=== PATIENT | male | born 1960 | race Two or more races ===

== ENCOUNTER 2025-05-01 17:45 | Inpatient (IN) | payer MEDICARE, MEDICAID ==
[~2025-05-01] VITALS: Ht 177.8 cm; Wt 126.0 kg
[2025-05-01] MEDS: SODIUM CHLORIDE 0.9% 1,000 ML IV ONE (18:00)
--- NOTE | 2025-05-01 18:05 | ED.PDOC ---
HPI Comments A 65 year-old male, with a PMHX of HTN and Kidney Disease, presents to the ED via EMS with a chief complaint of palpations as of 1700 today. Per EMS, patients AC went out last night so the house is hot in temperature. Patient reports palpitations as "heart racing" with no associated relieving factors. Per EMS, patient was diagnosed with a UTI X2 weeks ago and has had a catheter in place since. Patient reports onset of UTI symptoms, such as dysuria, frequency, cloudy urine, and chills. Patient is seen by an at home nurse once a week. Patient has no further complaints at this time and otherwise denies hematuria, abdominal pain, cough, fever, or N/V/D. Chief Complaint: Palpitations Time Seen by MD: 17:50 Reviewed Notes: Nurses Notes, Medications, Allergies Allergies: Coded Allergies: Iodine (Verified Allergy, Unknown, 05/01/25) Information Source: Patient, Emergency Med Personnel Mode of Arrival: EMS Severity: Moderate Timing: Hours Duration: Since onset Prehospital treatment: 12 Lead EKG (108), Accucheck (111) Associated Signs and Symptoms: Palpitations, Other (ysuria, frequency, cloudy urine, and chills.) Past Medical History PAST MEDICAL HISTORY: HTN Past Medical History (Other): Kidney Disease Surgical History (Other): R Femur Surgery Family History Family History: Reviewed,noncontributory to illness, No family hx of Cancer, No family hx of DM, No family hx of Heart saulo, No family hx of HTN, No family hx ofKidney saulo, No family hx of Liver saulo, No family hx of Lung saulo, No family hx of Stroke Social History Smoker: Quit Greater Than 1 Year Alcohol: Denies ETOH Use Drugs: Denies Drug Use Lives In: Home, Assisted Care Constitutional: reports: chills; denies: diaphoresis, fatigue, fever, malaise, sweats, weakness, others EENTM: denies: blurred vision, double vision, ear bleeding, ear discharge, ear drainage, ear pain, ear ringing, eye pain, eye redness, hearing loss, mouth pain, mouth swelling, nasal discharge, nose bleeding, nose congestion, nose pain, photophobia, tearing, throat pain, throat swelling, voice changes, others Respiratory: denies: cough, hemoptysis, orthopnea, SOB at rest, shortness of breath, SOB with excertion, stridor, wheezing, others Cardiovascular: reports: palpitations; denies: chest pain, dizzy spells, diaphoresis, Dyspnea on exertion, edema, irregular heart beat, left arm pain, lightheadedness, PND, syncope, others Gastrointestinal: denies: abdomen distended, abdominal pain, blood streaked bowels, constipated, diarrhea, dysphagia, difficulty swallowing, hematemesis, melena, nausea, poor appetite, poor fluid intake, rectal bleeding, rectal pain, vomiting, others Genitourinary: reports: dysuria, urgency; denies: burning, flank pain, frequency, hematuria, incontinence, penile discharge, penile sore, pain, testicle pain, testicle swelling, others Neurological: denies: dizziness, fainting, headache, left sided numbness, left sided weakness, numbness, paresthesia, pre-existing deficit, right sided numbn ess, right sided weakness, seizure, speech problems, tingling, tremors, weakness, others Musculoskeletal: denies: back pain, gout, joint pain, joint swelling, muscle pain, muscle stiffness, neck pain, others Integumetry: denies: bruises, change in color, change in hair/nails, dryness, laceration, lesions, lumps, rash, wounds, others Allergic/Immunocompromised: denies: Difficulty Healing, Frequent Infections, Hives, Itching, others Hematologic/Lymphatic: denies: anemia, blood clots, easy bleeding, easy bruising, swollen glands, others Endocrine: denies: excessive hunger, excessive sweating, excessive thirst, excessive urination, flushing, intolerance to cold, intolerance to heat, unexplained weight gain, unexplained weight loss, others Psychiatric: denies: anxiety, bipolar disorder, depression, hopeless, panic disorder, schizophrenia, sleepless, suicidal, others All Other Systems: Reviewed and Negative Physical Exam General Appearance: Moderate Distress HEENT: Normal ENT Inspection, Pharynx Normal, TMs Normal Neck: Full Range of Motion, Non-Tender, Normal, Normal Inspection Respiratory: Chest Non-Tender, Lungs Clear, No Accessory Muscle Use, No Respiratory Distress, Normal Breath Sounds Cardiovascular: No Edema, No JVD, No Murmur, No Gallop, Tachycardia Breast Exam: Deferred Gastrointestinal: No Organomegaly, Non Tender, No Pulsatile Mass, Normal Bowel Sounds, Soft Genitalia: Deferred Pelvic: Deferred Rectal: Deferred Extremities: No calf tenderness, Normal capillary refill, No pedal edema Musculoskeletal : Apperance: Normal Neurologic: can handler II-XII nml as Tested, Motor Weakness, Normal Affect, Normal Mood, No Sensory Deficits Cerebellar Function: Normal Reflexes: Normal Skin: Dry, Normal Color, Warm Lymphatic: No Adenopathy EKG EKG : Pulse Rate (adult): 108 [place]: Normal Cardiac Rhythm: ST Hypertrophy: None ST: Normal Was a procedure done? Was a procedure done?: No CP Differential Dx Differential Diagnosis: A-fib, Anxiety / Panic Attack Differential Diagnosis: HTN Essential, HTN Accelerated Differential Diagnosis: Chest Wall Pain X-Ray, Labs, Meds, VS Vital Signs Date Time Temp Pulse Resp B/P (MAP) Pulse Ox O2 Delivery O2 Flow Rate FiO2 05/01/25 18:50 91 05/01/25 18:18 98.4 106 11 140/92 (108) 98 98.4 05/01/25 18:08 Room Air* 0 21 05/01/25 18:05 108 05/01/25 17:50 98.4 116 20 134/89 97 98.4 05/01/25 17:46 108 Lab Test 05/01/25 18:00 Range/Units White Blood Count 12.9 H 4.4-10.8 10^3/uL Red Blood Count 4.29 L 4.5-5.90 10^6/uL Hemoglobin 12.5 L 13.5-17.5 g/dL Hematocrit 37.9 L 41.0-53.0 % Mean Corpuscular Volume 88.2 80.0-100.0 fL Mean Corpuscular Hemoglobin 29.2 28.0-32.0 pg Mean Corpuscular Hemoglobin Concent 33.1 32.0-36.0 g/dL Red Cell Distribution Width 13.9 11.8-14.3 % Platelet Count 233 140-450 10^3/uL Mean Platelet Volume 8.9 6.9-10.8 fL Neutrophils (%) (Auto) 74.2 37.0-80.0 % Lymphocytes (%) (Auto) 17.7 10.0-50.0 % Monocytes (%) (Auto) 4.8 0.0-12.0 % Eosinophils (%) (Auto) 2.6 0.0-7.0 % Basophils (%) (Auto) 0.7 0.0-2.0 % Neutrophils # (Auto) 9.6 H 1.6-8.6 10 ^3/uL Lymphocytes # (Auto) 2.3 0.4-5.4 10 ^3/uL Monocytes # (Auto) 0.6 0-1.3 10 ^3/uL Eosinophils # (Auto) 0.3 0-0.8 10 ^3/uL Basophils # (Auto) 0.1 0-0.2 10 ^3/uL Nucleated Red Blood Cells 0.0 % Urine Color Colorless Yellow Urine Clarity Ex.turbid Clear Urine pH 7.0 5.0-9.0 Urine Specific [place] 1.010 1.001-1.035 Urine Protein 1+ H Negative Urine Ketones Negative Negative Urine Blood 2+ H Negative /uL Urine Nitrite Negative Negative Urine Bilirubin Negative Negative Urine Urobilinogen 2 H Negative mg/dL Urine Leukocyte Esterase 3+ Negative /uL Urine RBC 33 0 - 3 /hpf Urine WBC Clumps Present None Seen /hpf Urine Microscopic WBC 74 H 0-3 /HPF Urine Squamous Epithelial Cells Few <5 /hpf Urine Amorphous Crystals Few None Seen /hpf Urine Bacteria Few H None Seen /hpf Urine Mucus Few None Seen Urine Glucose Normal Normal mg/dL Sodium Level 143 136-145 mmol/L Potassium Level 3.8 3.5-5.1 mmol/L Chloride Level 114 H 98-107 mmol/L Carbon Dioxide Level 19 L 20-31 mmol/L Anion Gap 10 5-15 Blood Urea Nitrogen 38 H 9-23 mg/dL Creatinine 2.11 H 0.700-1.30 mg/dL Glomerular Filtration Rate Calc 34 >90 mL/min BUN/Creatinine Ratio 18.0 10.0-20.0 Serum Glucose 112 H 74-106 mg/dL Lactic Acid Level 0.7 0.4-2.0 mmol/L Calcium Level 9.0 8.7-10.4 mg/dL Current Medications Medications (Trade) Dose Ordered Sig/Chucho Route Start Time Stop Time Status Last Admin Sodium Chloride 1,000 ml @ 150 mls/hr Q6H40M ONCE IV 05/01/25 18:00 05/02/25 00:39 05/01/25 18:00 CHEST XRAY IMPRESSION: No acute cardiopulmonary disease. IV Hep-Lock was established. The patient was given normal saline at 1 L bolus. The patient's urine test is positive for UTI The BUN is 38 and the creatinine is 2.11 The patient's white blood cell count is 12.9 We are concerned that this patient has a UTI bordering on sepsis The patient is being started on Levaquin The patient is being admitted at this time Images Reviewed?: Images reviewed and evaluated by me Time of 1ST Reevaluation: 18:38 Reevaluation 1ST: Unchanged Patient Education/Counseling: Diagnosis, Treatment, Prognosis Family Education/Counseling: No Family Present SEPSIS Sepsis Screen Physician Orders Chest Portable (05/01/25 17:51) Grit Blaster (05/01/25 17:51) Pulse Oximetry (05/01/25 17:51) Blood Pressure (05/01/25 17:51) Heplock Iv (05/01/25 17:51) Blood Culture (05/01/25 17:51) Sodium Chloride 0.9% (05/01/25 18:00) Vital Signs Date Time Temp Pulse Resp B/P (MAP) Pulse Ox O2 Delivery O2 Flow Rate FiO2 05/01/25 18:50 91 05/01/25 18:18 98.4 106 11 140/92 (108) 98 98.4 05/01/25 18:08 Room Air* 0 21 05/01/25 18:05 108 05/01/25 17:50 98.4 116 20 134/89 97 98.4 05/01/25 17:46 108 Laboratory Tests Test 05/01/25 18:00 Lactic Acid Level 0.7 mmol/L (0.4-2.0) White Blood Count 12.9 10^3/uL (4.4-10.8) H Medications Medications Dose Ordered Sig/Chucho Route Start Time Stop Time Status Last Admin Dose Admin Sodium Chloride 1,000 ml @ 150 mls/hr Q6H40M ONCE IV 05/01/25 18:00 05/02/25 00:39 05/01/25 18:00 Departure 1 Departure Time of Disposition: 19:14 Impression: Primary Impression: Palpitations Additional Impressions: Generalized weakness Acute pyelonephritis Disposition: ADMITTED INPATIENT Admit to: Tele Condition: Fair Critical Care Note Critical Care Time?: Yes (45 min-critical care time only) Stability Stability form required: Yes Unstable for transfer: Telemetry monitoring (Telemetry monitoring required), ED Physician Assesment (Clinical assesment) Heart Score Heart Score: Heart Score Response (Comments) Value History Moderate Suspicious 1 EKG Normal 0 Age >65 2 Risk Factors 1 or 2 risk factors 1 Troponin Normal limit 0 Total 4 I personally scribed for TONI MURILLO MD ([email or web address]) on 05/01/25 at 18:05. Electronically submitted by Aleida Beltran ([place]). I personally scribed for TONI MURILLO MD ([email or web address]) on 05/01/25 at 18:30. Electronically submitted by Aleida Beltran ([place]). I personally scribed for TONI MURILLO MD ([email or web address]) on 05/01/25 at 18:31. Electronically submitted by Aleida Beltran ([place]). TONI MURILLO MD May 01, 2025 18:05
[2025-05-01 18:15] LABS: Hematocrit 37.9 % (41.0-53.0); Hemoglobin 12.5 g/dL (13.5-17.5); Mean Corpuscular Hemoglobin 29.2 pg (28.0-32.0); Mean Corpuscular Volume 88.2 fL (80.0-100.0); Nucleated Red Blood Cells % 0.0 %
[2025-05-01 18:24] LABS: Potassium 3.8 mmol/L (3.5-5.1); Sodium 143 mmol/L (136-145)
[2025-05-01 18:25] LABS: Anion Gap 10 (5-15)
[2025-05-01 18:26] LABS: Calcium 9.0 mg/dL (8.7-10.4)
--- NOTE | 2025-05-01 18:27 | DVH ---
CHEST RADIOGRAPH Indication: weakness Technique: Single frontal view of the chest was obtained Comparison: None FINDINGS: Lines and Tubes: None Lungs: No focal consolidation. Mild elevation of the right hemidiaphragm. Pleura: No effusion. No pneumothorax. Cardiomediastinal contours: Unremarkable Bones: No acute osseous abnormality. IMPRESSION: No acute cardiopulmonary disease.
[2025-05-01 18:34] LABS: BUN/Creatinine Ratio 18.0 (10.0-20.0); Blood Urea Nitrogen 38 mg/dL (9-23); Carbon Dioxide 19 mmol/L (20-31); Chloride 114 mmol/L (98-107); Glucose 112 mg/dL (74-106)
--- NOTE | 2025-05-01 18:51 | ECG ---
[facility] Test Date: 2025-05-01 Test Time: 18:50:29 Pat Name: MAGDALENA SHEARER Department: ED Room: [facility]24[facility] Gender: M Document Design Specialist: TATIANA : 1960 Requested By: TONI MURILLO Order Number: [id number] Reading MD: Zeke Isabel Measurements Intervals [place] Rate: 91 P: 14 AR: 149 QRS: -14 QRSD: 102 T: -1 QT: 388 QTc: 478 Interpretive Statements Sinus rhythm Left ventricular hypertrophy Borderline T abnormalities, inferior leads Borderline prolonged QT interval Electronically Signed On 05-02-2025 17:54:06 PDT by Zeke Isabel Please click the below link to view image of tracing.
[2025-05-01 18:52] LABS: Urine Amorphous Crystal FEW /hpf (None Seen); Urine Protein, UAD 1+ (Negative); Urine WBC Clumps PRESENT /hpf (None Seen)
[2025-05-01 19:30] VITALS: PULSE 99; RESP 12; O2SAT 98
[2025-05-01] MEDS ORDERED: ACETAMINOPHEN 325 MG TAB PO PRN (20:00)
[2025-05-01] MEDS ORDERED: HYDROcodone-ACET 5/325MG TAB PO PRN (20:00)
[2025-05-01] MEDS: cefTRIAXone 1GM/50ML D5W 50 ML IV ONE (20:09)
[2025-05-01] MEDS: ONDANSETRON HCL 4 MG/2 ML VIAL IV PRN (20:52)
--- NOTE | 2025-05-02 03:05 | DVHHP2 ---
History of Present Illness Reason for Visit: Urinary complaints History of Present Illness 65-year-old male presents for evaluation of urinary complaints. Patient presents at noticing cloudy urine in his Pan catheter and having chills. Patient reports being treated for a UTI two weeks ago. Denies abdominal pain, nausea or vomiting. No other acute complaints. Past Medical History Hypertension, paraplegia, CKD Past Surgical History Right femur surgery Family History Noncontributory Smoke: Quit ALCOHOL: none Drugs: None Lives: with Family Review of Systems Review of Systems Review of systems are currently negative otherwise addressed in HPI. Allergies: Coded Allergies: Iodine (Verified Allergy, Unknown, 05/01/25) Medications Current Medications Medications Dose Ordered Sig/Chucho Route Start Time Stop Time Status Last Admin Dose Admin Ceftriaxone Sodium 50 ml @ 100 mls/hr DAILY@09 IV 05/02/25 09:00 Acetaminophen/ Hydrocodone Bitart 1 tab Q4HP PRN PO 05/01/25 20:00 Ondansetron HCl 4 mg Q4HP PRN IV 05/01/25 20:00 05/01/25 20:52 4 MG Acetaminophen 650 mg Q6HP PRN PO 05/01/25 20:00 Exam Vital Signs Vital Signs Date Time Temp Pulse Resp B/P (MAP) Pulse Ox O2 Delivery O2 Flow Rate FiO2 05/02/25 01:30 76 14 128/82 (97) 97 05/01/25 19:30 98.4 98.4 05/01/25 19:30 Room Air* 0 21 Exam Gen: 65-year-old male in no apparent distress. Skin: Warm, dry, normal color and texture, no rash. HEENT: Normocephalic atraumatic, mucous membranes moist and pink. Neck: Cervical and supraclavicular nodes normal without enlargement, trachea is midline, thyroid gland is normal without masses. Pulmonary: Clear to auscultation and percussion bilaterally. Cardiac: Regular rate and rhythm. No murmur Abdomen: Soft, nontender, nondistended, bowel sounds present all 4 quadrants, no guarding, no rigidity, no organomegaly. Extremities: No cyanosis, clubbing, no edema Neuro: Cranial nerves II through XII grossly intact, normal affect and speech, no focal motor deficits. Labs/Xrays ORDERING PHYSICIAN: TONI MURILLO MD PROCEDURE(s): CXRP - CHEST PORTABLE REASON: weakness ORDER NUMBER(s): [id number], ACCESSION NUMBER(s): [id number] CHEST RADIOGRAPH Indication: weakness Technique: Single frontal view of the chest was obtained Comparison: None FINDINGS: Lines and Tubes: None Lungs: No focal consolidation. Mild elevation of the right hemidiaphragm. Pleura: No effusion. No pneumothorax. Cardiomediastinal contours: Unremarkable Bones: No acute osseous abnormality. IMPRESSION: No acute cardiopulmonary disease. Labs Test 05/01/25 18:00 Range/Units White Blood Count 12.9 H 4.4-10.8 10^3/uL Red Blood Count 4.29 L 4.5-5.90 10^6/uL Hemoglobin 12.5 L 13.5-17.5 g/dL Hematocrit 37.9 L 41.0-53.0 % Mean Corpuscular Volume 88.2 80.0-100.0 fL Mean Corpuscular Hemoglobin 29.2 28.0-32.0 pg Mean Corpuscular Hemoglobin Concent 33.1 32.0-36.0 g/dL Red Cell Distribution Width 13.9 11.8-14.3 % Platelet Count 233 140-450 10^3/uL Mean Platelet Volume 8.9 6.9-10.8 fL Neutrophils (%) (Auto) 74.2 37.0-80.0 % Lymphocytes (%) (Auto) 17.7 10.0-50.0 % Monocytes (%) (Auto) 4.8 0.0-12.0 % Eosinophils (%) (Auto) 2.6 0.0-7.0 % Basophils (%) (Auto) 0.7 0.0-2.0 % Neutrophils # (Auto) 9.6 H 1.6-8.6 10 ^3/uL Lymphocytes # (Auto) 2.3 0.4-5.4 10 ^3/uL Monocytes # (Auto) 0.6 0-1.3 10 ^3/uL Eosinophils # (Auto) 0.3 0-0.8 10 ^3/uL Basophils # (Auto) 0.1 0-0.2 10 ^3/uL Nucleated Red Blood Cells 0.0 % Urine Color Colorless Yellow Urine Clarity Ex.turbid Clear Urine pH 7.0 5.0-9.0 Urine Specific [place] 1.010 1.001-1.035 Urine Protein 1+ H Negative Urine Ketones Negative Negative Urine Blood 2+ H Negative /uL Urine Nitrite Negative Negative Urine Bilirubin Negative Negative Urine Urobilinogen 2 H Negative mg/dL Urine Leukocyte Esterase 3+ Negative /uL Urine RBC 33 0 - 3 /hpf Urine WBC Clumps Present None Seen /hpf Urine Microscopic WBC 74 H 0-3 /HPF Urine Squamous Epithelial Cells Few <5 /hpf Urine Amorphous Crystals Few None Seen /hpf Urine Bacteria Few H None Seen /hpf Urine Mucus Few None Seen Urine Glucose Normal Normal mg/dL Sodium Level 143 136-145 mmol/L Potassium Level 3.8 3.5-5.1 mmol/L Chloride Level 114 H 98-107 mmol/L Carbon Dioxide Level 19 L 20-31 mmol/L Anion Gap 10 5-15 Blood Urea Nitrogen 38 H 9-23 mg/dL Creatinine 2.11 H 0.700-1.30 mg/dL Glomerular Filtration Rate Calc 34 >90 mL/min BUN/Creatinine Ratio 18.0 10.0-20.0 Serum Glucose 112 H 74-106 mg/dL Lactic Acid Level 0.7 0.4-2.0 mmol/L Calcium Level 9.0 8.7-10.4 mg/dL SEPSIS Sepsis Screen Date sepsis recognized/suspect: May 01, 2025 Time Sepsis recognized/suspect: 1952 Recent Procedure: No On Antibiotic Therapy: No Respiratory Rate >20: No Heart Rate >90: Yes Temp<36 C (96.8 F) or >38.3 C: No SBP <90 or MAP <65 mmHG: No New Acute Mental Status Change: No Is the patient on CPAP, BIPAP,: No Physician Orders Ceftriaxone 1gm/50ml D5w (Rocephin) (05/02/25 09:00) Admit (05/01/25 19:46) Urine Bacterial Culture (05/01/25 19:49) Basic Metabolic Panel (05/02/25 04:00) Regular Diet (05/02/25 Breakfast) Hydrocodone-Acet 5/325mg Tab ([place] 5/32 (05/01/25 20:00) Ondansetron Hcl (Zofran) (05/01/25 20:00) Complete Blood Count (05/02/25 04:00) Condition: Stable (05/01/25 19:49) Acetaminophen Tablet (Tylenol Tablet) (05/01/25 20:00) Bedrest With Bathroom Privileg (05/01/25 19:49) * Urology Consult (05/02/25 02:59) Vital Signs Date Time Temp Pulse Resp B/P (MAP) Pulse Ox O2 Delivery O2 Flow Rate FiO2 05/02/25 01:30 76 14 128/82 (97) 97 05/01/25 23:30 84 14 111/83 (92) 98 05/01/25 21:30 90 14 122/87 (99) 99 05/01/25 19:30 98.4 99 12 151/94 (113) 98 98.4 05/01/25 19:30 99 12 98 Room Air* 0 21 Laboratory Tests Test 05/01/25 18:00 Lactic Acid Level 0.7 mmol/L (0.4-2.0) White Blood Count 12.9 10^3/uL (4.4-10.8) H Medications Medications Dose Ordered Sig/Chucho Route Start Time Stop Time Status Last Admin Dose Admin Ceftriaxone Sodium 50 ml @ 100 mls/hr ONCE ONCE IV 05/01/25 20:00 05/01/25 20:29 DC 05/01/25 20:09 100 MLS/HR Ondansetron HCl 4 mg Q4HP PRN IV 05/01/25 20:00 05/01/25 20:52 4 MG Sodium Chloride 1,000 ml @ 150 mls/hr Q6H40M ONCE IV 05/01/25 18:00 05/02/25 00:39 DC 05/01/25 18:00 150 MLS/HR Assessment/Plan Assessment/Plan Assessment Acute pyelonephritis Leukocytosis Acute kidney injury Paraplegic Hypertension Plan Admit the patient to Med [facility] to the hospitalist Urology consult Nephrology consultation Rocephin Resume home medications Continue treatment per orders. Plan discussed with: Patient My Orders Orders - MIRIAM VICTORIA Procedure Category Date Status Time Ceftriaxone 1gm/50ml PHA 05/02/25 In Process D5w (Rocephin) 09:00 Admit ADMIT 05/01/25 Transmitted 19:46 Urine Bacterial UMAIR 05/01/25 In Process Culture 19:49 Basic Metabolic Panel LAB 05/02/25 Logged 04:00 Regular Diet DIET 05/02/25 Transmitted Breakfast Hydrocodone-Acet PHA 05/01/25 In Process 5/325mg Tab ([place] 20:00 Ondansetron Hcl PHA 05/01/25 In Process (Zofran) 20:00 Complete Blood Count LAB 05/02/25 Logged 04:00 Condition: Stable TERRENCE 05/01/25 In Process 19:49 Acetaminophen Tablet PHA 05/01/25 In Process (Tylenol Tablet) 20:00 Bedrest With Bathroom TERRENCE 05/01/25 In Process Privileg 19:49 * Urology Consult CONS 05/02/25 Transmitted 02:59 Date of Service: May 01, 2025 Billing Provider: IMRIAM VICTORIA Common Visit Codes: [id number] INP/OBS CARE (HIGH) MIRIAM VICTORIA May 02, 2025 03:05
[2025-05-02 06:31] LABS: Potassium 3.9 mmol/L (3.5-5.1)
[2025-05-02 06:32] LABS: Anion Gap 9 (5-15); Calcium 9.4 mg/dL (8.7-10.4)
[2025-05-02 06:34] LABS: Hematocrit 37.2 % (41.0-53.0); Hemoglobin 12.4 g/dL (13.5-17.5); Mean Corpuscular Hemoglobin 29.6 pg (28.0-32.0); Mean Corpuscular Volume 88.8 fL (80.0-100.0); Nucleated Red Blood Cells % 0.0 %
[2025-05-02 06:37] LABS: BUN/Creatinine Ratio 16.1 (10.0-20.0); Glucose 96 mg/dL (74-106)
[2025-05-02 06:42] LABS: Blood Urea Nitrogen 34 mg/dL (9-23); Carbon Dioxide 20 mmol/L (20-31); Chloride 116 mmol/L (98-107); Sodium 145 mmol/L (136-145)
[2025-05-02 07:30] VITALS: PULSE 66; RESP 13; O2SAT 95
[2025-05-02] MEDS: cefTRIAXone 1GM/50ML D5W 50 ML IV SCH (09:07)
--- NOTE | 2025-05-02 14:39 | DVHPN2 ---
Assessment/Plan Assessment/Plan progress note 65 M with HTN, CKD, paraplegia, chronic laguna admitted for palpitation. found to have pyuria. physical exam aox4 no JVD clear breath sounds s1 s2 rrr abdomen soft, mild suprapubic tenderness b/l LE edema bed bound labs ekg imaging reviewed assessment and plan sepsis UTI indwelling laguna incontinence bed bound CKD3b HTN empiric ceftriaxone reusme home meds [place]una exchange, will attempt TOV first iv fluid diet renal dvt ppx lovenox full code Plan discussed with: Patient Date of Service: May 02, 2025 Billing Provider: MANUEL PIMENTEL MD Common Visit Codes: [id number] INP/OBS CARE(HIGH) MANUEL PIMENTEL MD May 02, 2025 14:39
[2025-05-02 14:53] VITALS: BP 142/79; PULSE 83; RESP 18; TEMP 97.5; O2SAT 98
--- NOTE | 2025-05-02 15:30 | DVHINCON2 ---
Date of service: May 02, 2025 Referring Physician Hospitalist Reason for Consultation Urinary retention History of Present Illness 65 year-old male, with a PMHX of HTN and Kidney Disease, admitted to [facility] via EMS with a chief complaint of palpations. Per EMS, patients AC went out and so the house was hot in temperature. Patient reports palpitations as "heart racing" with no associated relieving factors. Per EMS, patient was diagnosed with a UTI X2 weeks ago and has had a catheter in place since. Patient reports onset of UTI symptoms, such as dysuria, frequency, cloudy urine, and chills. Patient is seen by an at home nurse once a week. Patient has no further complaints at this time and otherwise denies hematuria, abdominal pain, cough, fever, or N/V/D. Chief Complaint: Palpitations Reviewed Notes: Nurses Notes, Medications, Allergies Allergies: Coded Allergies: Iodine (Verified Allergy, Unknown, 05/01/25) Information Source: Patient, Emergency Med Personnel Mode of Arrival: EMS Severity: Moderate Timing: Hours Duration: Since onset Prehospital treatment: 12 Lead EKG (108), Accucheck (111) Associated Signs and Symptoms: Palpitations, Other (ysuria, frequency, cloudy urine, and chills.) Past Medical History HTN Chronic kidney disease Past Surgical History R Femur Surgery Allergies: Coded Allergies: Iodine (Verified Allergy, Unknown, 05/01/25) Home Meds Reported Medications Nitrofurantoin Monohyd Macro (Nitrofurantoin Monohydrat) 100 Mg Cap, 1 CAP PO BID 05/02/25 Current Medications Current Medications Medications (Trade) Dose Ordered Sig/Chucho Route PRN Reason Start Time Stop Time Status Last Admin Ceftriaxone Sodium 50 ml @ 100 mls/hr DAILY@09 IV 05/02/25 09:00 05/02/25 09:07 Acetaminophen/ Hydrocodone Bitart ([place]akes 5/325MG Tab) 1 tab Q4HP PRN PO MODERATE PAIN (4-6 PAIN SCALE) 05/01/25 20:00 Ondansetron HCl (Zofran) 4 mg Q4HP PRN IV NAUSEA / VOMITING 05/01/25 20:00 05/01/25 20:52 Acetaminophen (Tylenol Tablet) 650 mg Q6HP PRN PO PAIN SCALE 1-3 OR TEMP>100.4 05/01/25 20:00 Nifedipine (Procardia Xl (Time-Release)) 30 mg DAILY PO 05/02/25 10:00 05/02/25 10:21 Review of Systems Constitutional: reports: chills; denies: diaphoresis, fatigue, fever, malaise, sweats, weakness, others EENTM: denies: blurred vision, double vision, ear bleeding, ear discharge, ear drainage, ear pain, ear ringing, eye pain, eye redness, hearing loss, mouth pain, mouth swelling, nasal discharge, nose bleeding, nose congestion, nose pain, photophobia, tearing, throat pain, throat swelling, voice changes, others Respiratory: denies: cough, hemoptysis, orthopnea, SOB at rest, shortness of breath, SOB with excertion, stridor, wheezing, others Cardiovascular: reports: palpitations; denies: chest pain, dizzy spells, diaphoresis, Dyspnea on exertion, edema, irregular heart beat, left arm pain, lightheadedness, PND, syncope, others Gastrointestinal: denies: abdomen distended, abdominal pain, blood streaked bowels, constipated, diarrhea, dysphagia, difficulty swallowing, hematemesis, melena, nausea, poor appetite, poor fluid intake, rectal bleeding, rectal pain, vomiting, others Genitourinary: reports: dysuria, urgency; denies: burning, flank pain, frequency, hematuria, incontinence, penile discharge, penile sore, pain, testicle pain, testicle swelling, others Neurological: denies: dizziness, fainting, headache, left sided numbness, left sided weakness, numbness, paresthesia, pre-existing deficit, right sided numbness, right sided weakness, seizure, speech problems, tingling, tremors, weakness, others Musculoskeletal: denies: back pain, gout, joint pain, joint swelling, muscle pain, muscle stiffness, neck pain, others Integumetry: denies: bruises, change in color, change in hair/nails, dryness, laceration, lesions, lumps, rash, wounds, others Allergic/Immunocompromised: denies: Difficulty Healing, Frequent Infections, Hives, Itching, others Hematologic/Lymphatic: denies: anemia, blood clots, easy bleeding, easy bruising, swollen glands, others Endocrine: denies: excessive hunger, excessive sweating, excessive thirst, excessive urination, flushing, intolerance to cold, intolerance to heat, unexplained weight gain, unexplained weight loss, others Psychiatric: denies: anxiety, bipolar disorder, depression, hopeless, panic disorder, schizophrenia, sleepless, suicidal, others All Other Systems: Reviewed and Negative Vital Signs Vital Signs Date Time Temp Pulse Resp B/P (MAP) Pulse Ox O2 Delivery O2 Flow Rate FiO2 05/02/25 14:53 97.5 83 18 142/79 (100) 98 97.5 05/02/25 14:53 Room Air* 0 21 Physical Exam General Appearance: Moderate Distress HEENT: Normal ENT Inspection, Pharynx Normal, TMs Normal Neck: Full Range of Motion, Non-Tender, Normal, Normal Inspection Respiratory: Chest Non-Tender, Lungs Clear, No Accessory Muscle Use, No Respiratory Distress, Normal Breath Sounds Cardiovascular: No Edema, No JVD, No Murmur, No Gallop, Tachycardia Breast Exam: Deferred Gastrointestinal: No Organomegaly, Non Tender, No Pulsatile Mass, Normal Bowel Sounds, Soft Genitalia: Pan in place Extremities: No calf tenderness, Normal capillary refill, No pedal edema Musculoskeletal : Apperance: Normal Neurologic: side panel padder II-XII nml as Tested, Motor Weakness, Normal Affect, Normal Mood, No Sensory Deficits Cerebellar Function: Normal Reflexes: Normal Skin: Dry, Normal Color, Warm Lymphatic: No Adenopathy Labs/Diagnostic Data Labs Test 05/02/25 05:28 05/01/25 18:00 Range/Units White Blood Count 11.7 H 4.4-10.8 10^3/uL Red Blood Count 4.20 L 4.5-5.90 10^6/uL Hemoglobin 12.4 L 13.5-17.5 g/dL Hematocrit 37.2 L 41.0-53.0 % Mean Corpuscular Volume 88.8 80.0-100.0 fL Mean Corpuscular Hemoglobin 29.6 28.0-32.0 pg Mean Corpuscular Hemoglobin Concent 33.3 32.0-36.0 g/dL Red Cell Distribution Width 14.0 11.8-14.3 % Platelet Count 225 140-450 10^3/uL Mean Platelet Volume 8.8 6.9-10.8 fL Neutrophils (%) (Auto) 72.3 37.0-80.0 % Lymphocytes (%) (Auto) 18.0 10.0-50.0 % Monocytes (%) (Auto) 5.5 0.0-12.0 % Eosinophils (%) (Auto) 3.7 0.0-7.0 % Basophils (%) (Auto) 0.5 0.0-2.0 % Neutrophils # (Auto) 8.5 1.6-8.6 10 ^3/uL Lymphocytes # (Auto) 2.1 0.4-5.4 10 ^3/uL Monocytes # (Auto) 0.6 0-1.3 10 ^3/uL Eosinophils # (Auto) 0.4 0-0.8 10 ^3/uL Basophils # (Auto) 0.1 0-0.2 10 ^3/uL Nucleated Red Blood Cells 0.0 % Sodium Level 145 136-145 mmol/L Potassium Level 3.9 3.5-5.1 mmol/L Chloride Level 116 H 98-107 mmol/L Carbon Dioxide Level 20 20-31 mmol/L Anion Gap 9 5-15 Blood Urea Nitrogen 34 H 9-23 mg/dL Creatinine 2.11 H 0.700-1.30 mg/dL Glomerular Filtration Rate Calc 34 >90 mL/min BUN/Creatinine Ratio 16.1 10.0-20.0 Serum Glucose 96 74-106 mg/dL Calcium Level 9.4 8.7-10.4 mg/dL Urine Color Colorless Yellow Urine Clarity Ex.turbid Clear Urine pH 7.0 5.0-9.0 Urine Specific [place] 1.010 1.001-1.035 Urine Protein 1+ H Negative Urine Ketones Negative Negative Urine Blood 2+ H Negative /uL Urine Nitrite Negative Negative Urine Bilirubin Negative Negative Urine Urobilinogen 2 H Negative mg/dL Urine Leukocyte Esterase 3+ Negative /uL Urine RBC 33 0 - 3 /hpf Urine WBC Clumps Present None Seen /hpf Urine Microscopic WBC 74 H 0-3 /HPF Urine Squamous Epithelial Cells Few <5 /hpf Urine Amorphous Crystals Few None Seen /hpf Urine Bacteria Few H None Seen /hpf Urine Mucus Few None Seen Urine Glucose Normal Normal mg/dL Lactic Acid Level 0.7 0.4-2.0 mmol/L Microbiology Date/Time Source Procedure Growth Status 05/01/25 18:00 Voided Urine Urine Culture - Preliminary Resulted Assessment Urinary retention with history of LUTs CKD BPH Plan/Recommendation Hospitalist has ordered a voiding trial. If unsuccessful catheter should be replaced. Either way patient will require a diagnostic cystoscopy to be arranged as outpatient in Urology Clinic. PSA and CT scan abdomen and pelvis noncontrast study are ordered. Patient's serum creatinine is elevated at 2.1 and this may be his baseline. Plan discussed with: Patient, Other TRACY RILEY MD May 02, 2025 15:30
[2025-05-02] MEDS ORDERED: NITR100C6 PO (15:37)
--- NOTE | 2025-05-02 16:46 | DVH ---
EXAM DESCRIPTION: CT CT AB PEL WO CON-NO ORAL OR IV CLINICAL HISTORY: chronic urinary retention COMPARISON: None TECHNIQUE: CT abdomen and pelvis without IV contrast was performed. Coronal and sagittal MPR images were generat ed.CTDI/ DLP = 24.51 / 1597.93 Dose reduction technique with one or more of the following methods was performed: Automated exposure control, adjustment of the mA and/or kV according to patient size, use of iterative reconstruction te [place] FINDINGS: Lower chest: Clear lung bases. Multivessel coronary artery disease. Liver: Homogenous in attenuation. . Biliary: No calcified gallstones. No biliary ductal dilatation. Pancreas: No fat stranding or focal lesion. Spleen: Normal in size.. Adrenal glands: No nodularity. Kidneys: No nephrolithiasis. No hydroureteronephrosis. Water attenuation cysts and subcentimeter hypo attenuating lesions which are too small to characterize on CT.. Multiple punctate bilateral renal ca lculi. Bilateral renal cortical scarring / thinning. Bladder: Decompressed via Laguna catheter. Reproductive organs: Normal. Bowel: No bowel wall thickening or dilatation. Colonic diverticulosis without evidence of diverticuli tis. . Peritoneum: No free fluid. No free air. Vessels: Normal caliber abdominal aorta. Moderate atherosclerotic calcifications.. Lymph nodes: No suspicious lymph nodes. Soft tissues: Unremarkable. . Osseous structures: No acute fracture or subluxation. No suspicious osseous lesions. Degenerative c hanges of the visualized thoracolumbar spine. Postoperative changes from intramedullary geronimo and screw fixation of the right femur. IMPRESSION: 1. Punctate bilateral renal calculi. No hydronephrosis. 2. The urinary bladder is decompressed with a laguna catheter. 3. Moderate atherosclerotic vascular disease. Coronary artery disease.
[2025-05-02 17:00] VITALS: BP 137/91; PULSE 66; RESP 18; TEMP 97.9; O2SAT 97
--- NOTE | 2025-05-02 19:57 | DVHINCON2 ---
Date of service: May 03, 2025 Reason for Consultation fernando History of Present Illness 65 years old male with past medical history of Chronic kidney disease IIIb, hypertension, chronic Laguna catheter, presented with chief complaints of feeling hot and without AC Patient [place] with Nephrology [place] He tells me his catheter was placed long time ago and it is being changed every month Past Medical History per hpi Past Surgical History per hpi Allergies: Coded Allergies: Iodine (Verified Allergy, Unknown, 05/01/25) Home Meds Reported Medications Nitrofurantoin Monohyd Macro (Nitrofurantoin Monohydrat) 100 Mg Cap, 1 CAP PO BID 05/02/25 Current Medications Current Medications Medications (Trade) Dose Ordered Sig/Chucho Route PRN Reason Start Time Stop Time Status Last Admin Sodium Chloride 1,000 ml @ 75 mls/hr [id number] IV 05/03/25 22:15 Family History: FH: dementia G8 FATHER FH: stroke G8 MOTHER Review of Systems per hpi H&P Exam Vital Signs/I&O Vital Sign Date Time Temp Pulse Resp B/P (MAP) Pulse Ox O2 Delivery O2 Flow Rate FiO2 05/03/25 21:00 99.6 95 20 121/84 (96) 98 99.6 05/03/25 08:00 Room Air* 0 21 Intake and Output 05/02/25 05/03/25 19:00 07:00 Intake Total 300 ml 0 ml Output Total 2500 ml 0 ml Balance -2200 ml 0 ml Intake Oral 300 ml 0 ml Output Urine Total 2500 ml 0 ml Physical Exam General-not in any distress HEENT-normocephalic, no icterus, no pallor, Respiratory-fair air entry bilateral, no rhonchi, no wheeze [id number] heard, no murmurs appreciated Abdominal-soft, nontender, nondistended Musculoskeletal-no pedal edema, no calf tenderness Genitourinary-deferred Neuro-awake alert oriented x3, Psychiatric-not agitated, cooperative, Labs/Diagnostic Data Labs/Diagnostic Data Laboratory Tests Test 05/03/25 05:18 05/02/25 05:28 05/01/25 18:00 Range/Units White Blood Count 11.7 H 11.7 H 12.9 H 4.4-10.8 10^3/uL Red Blood Count 3.85 L 4.20 L 4.29 L 4.5-5.90 10^6/uL Hemoglobin 11.4 L 12.4 L 12.5 L 13.5-17.5 g/dL Hematocrit 34.0 L 37.2 L 37.9 L 41.0-53.0 % Mean Corpuscular Volume 88.5 88.8 88.2 80.0-100.0 fL Mean Corpuscular Hemoglobin 29.7 29.6 29.2 28.0-32.0 pg Mean Corpuscular Hemoglobin Concent 33.6 33.3 33.1 32.0-36.0 g/dL Red Cell Distribution Width 14.1 14.0 13.9 11.8-14.3 % Platelet Count 213 225 233 140-450 10^3/uL Mean Platelet Volume 8.9 8.8 8.9 6.9-10.8 fL Neutrophils (%) (Auto) 72.6 72.3 74.2 37.0-80.0 % Lymphocytes (%) (Auto) 15.1 18.0 17.7 10.0-50.0 % Monocytes (%) (Auto) 6.5 5.5 4.8 0.0-12.0 % Eosinophils (%) (Auto) 5.4 3.7 2.6 0.0-7.0 % Basophils (%) (Auto) 0.4 0.5 0.7 0.0-2.0 % Neutrophils # (Auto) 8.5 8.5 9.6 H 1.6-8.6 10 ^3/uL Lymphocytes # (Auto) 1.8 2.1 2.3 0.4-5.4 10 ^3/uL Monocytes # (Auto) 0.8 0.6 0.6 0-1.3 10 ^3/uL Eosinophils # (Auto) 0.6 0.4 0.3 0-0.8 10 ^3/uL Basophils # (Auto) 0 0.1 0.1 0-0.2 10 ^3/uL Nucleated Red Blood Cells 0.0 0.0 0.0 % Sodium Level 139 # 145 143 136-145 mmol/L Potassium Level 3.9 3.9 3.8 3.5-5.1 mmol/L Chloride Level 111 H 116 H 114 H 98-107 mmol/L Carbon Dioxide Level 19 L 20 19 L 20-31 mmol/L Anion Gap 9 9 10 5-15 Blood Urea Nitrogen 35 H 34 H 38 H 9-23 mg/dL Creatinine 2.06 H 2.11 H 2.11 H 0.700-1.30 mg/dL Glomerular Filtration Rate Calc 35 34 34 >90 mL/min BUN/Creatinine Ratio 17.0 16.1 18.0 10.0-20.0 Serum Glucose 95 96 112 H 74-106 mg/dL Calcium Level 8.3 L 9.4 9.0 8.7-10.4 mg/dL Free Prostate Specific Antigen 0.32 N/A ng/mL Percent Free Prostate Specific Ag 13.9 . % Prostate Specific Antigen Total 2.3 0.0-4.0 ng/mL Urine Color Colorless Yellow Urine Clarity Ex.turbid Clear Urine pH 7.0 5.0-9.0 Urine Specific [place] 1.010 1.001-1.035 Urine Protein 1+ H Negative Urine Ketones Negative Negative Urine Blood 2+ H Negative /uL Urine Nitrite Negative Negative Urine Bilirubin Negative Negative Urine Urobilinogen 2 H Negative mg/dL Urine Leukocyte Esterase 3+ Negative /uL Urine RBC 33 0 - 3 /hpf Urine WBC Clumps Present None Seen /hpf Urine Microscopic WBC 74 H 0-3 /HPF Urine Squamous Epithelial Cells Few <5 /hpf Urine Amorphous Crystals Few None Seen /hpf Urine Bacteria Few H None Seen /hpf Urine Mucus Few None Seen Urine Glucose Normal Normal mg/dL Lactic Acid Level 0.7 0.4-2.0 mmol/L Assessment FERNANDO-likely hemodynamic prerenal chronic laguna HTN Obesity kidney stones plan ivf gentle chronic laguna management per urology will f/u Plan discussed with: Patient BALDEMAR ANDERSON MD May 02, 2025 19:57
[2025-05-02 21:00] VITALS: BP 118/77; PULSE 89; RESP 20; TEMP 98.4; O2SAT 98
[2025-05-03] VITALS (9 sets, daily range): BP systolic 109–130; BP diastolic 54–84; PULSE 65–95; RESP 18–20; TEMP 97.7–99.6; O2SAT 95–98
[2025-05-03 05:08] LABS: Prostate Specific Antigen 2.3 ng/mL (0.0-4.0)
[2025-05-03 05:51] LABS: Hematocrit 34.0 % (41.0-53.0); Hemoglobin 11.4 g/dL (13.5-17.5); Mean Corpuscular Hemoglobin 29.7 pg (28.0-32.0); Mean Corpuscular Volume 88.5 fL (80.0-100.0); Nucleated Red Blood Cells % 0.0 %
[2025-05-03 06:10] LABS: Anion Gap 9 (5-15); Potassium 3.9 mmol/L (3.5-5.1); Sodium 139 mmol/L (136-145)
[2025-05-03 06:12] LABS: Calcium 8.3 mg/dL (8.7-10.4); Carbon Dioxide 19 mmol/L (20-31); Chloride 111 mmol/L (98-107)
[2025-05-03 06:16] LABS: BUN/Creatinine Ratio 17.0 (10.0-20.0); Glucose 95 mg/dL (74-106)
[2025-05-03 06:17] LABS: Blood Urea Nitrogen 35 mg/dL (9-23)
--- NOTE | 2025-05-03 15:41 | DVHPN2 ---
Progress Note - Dictate Date Seen: May 03, 2025 Has the PT tested + for MRSA If YES, has PT been informed?: No Medical Necessity Reason Pt with a Central, PICC or Fol: Yes The following are medically ne: Laguna Catheter Medical Necessity Reason The patient has chronic laguna. He failed voiding trial. vital signs Vital Signs Date Time Temp Pulse Resp B/P (MAP) Pulse Ox O2 Delivery O2 Flow Rate FiO2 05/03/25 13:00 98.2 70 20 130/82 (98) 97 98.2 05/03/25 09:23 117/78 05/03/25 09:00 98.2 71 18 128/73 (91) 98 98.2 05/03/25 08:00 86 18 95 Room Air* 0 21 05/03/25 07:50 97.7 75 18 117/78 (91) 97 97.7 05/03/25 04:58 97.7 73 20 111/54 (73) 98 97.7 05/03/25 01:00 98.0 77 20 109/69 (82) 96 98.0 05/02/25 21:00 98.4 89 20 118/77 (91) 98 98.4 05/02/25 20:00 Room Air* 0 21 05/02/25 17:00 97.9 66 18 137/91 (106) 97 97.9 Lab Test 05/03/25 05:18 Range/Units White Blood Count 11.7 H 4.4-10.8 10^3/uL Red Blood Count 3.85 L 4.5-5.90 10^6/uL Hemoglobin 11.4 L 13.5-17.5 g/dL Hematocrit 34.0 L 41.0-53.0 % Mean Corpuscular Volume 88.5 80.0-100.0 fL Mean Corpuscular Hemoglobin 29.7 28.0-32.0 pg Mean Corpuscular Hemoglobin Concent 33.6 32.0-36.0 g/dL Red Cell Distribution Width 14.1 11.8-14.3 % Platelet Count 213 140-450 10^3/uL Mean Platelet Volume 8.9 6.9-10.8 fL Neutrophils (%) (Auto) 72.6 37.0-80.0 % Lymphocytes (%) (Auto) 15.1 10.0-50.0 % Monocytes (%) (Auto) 6.5 0.0-12.0 % Eosinophils (%) (Auto) 5.4 0.0-7.0 % Basophils (%) (Auto) 0.4 0.0-2.0 % Neutrophils # (Auto) 8.5 1.6-8.6 10 ^3/uL Lymphocytes # (Auto) 1.8 0.4-5.4 10 ^3/uL Monocytes # (Auto) 0.8 0-1.3 10 ^3/uL Eosinophils # (Auto) 0.6 0-0.8 10 ^3/uL Basophils # (Auto) 0 0-0.2 10 ^3/uL Nucleated Red Blood Cells 0.0 % Sodium Level 139 # 136-145 mmol/L Potassium Level 3.9 3.5-5.1 mmol/L Chloride Level 111 H 98-107 mmol/L Carbon Dioxide Level 19 L 20-31 mmol/L Anion Gap 9 5-15 Blood Urea Nitrogen 35 H 9-23 mg/dL Creatinine 2.06 H 0.700-1.30 mg/dL Glomerular Filtration Rate Calc 35 >90 mL/min BUN/Creatinine Ratio 17.0 10.0-20.0 Serum Glucose 95 74-106 mg/dL Calcium Level 8.3 L 8.7-10.4 mg/dL Vital Sign Date Time Temp Pulse Resp B/P (MAP) Pulse Ox O2 Delivery O2 Flow Rate FiO2 05/03/25 13:00 98.2 70 20 130/82 (98) 97 98.2 05/03/25 08:00 Room Air* 0 21 Total Intake and Output 05/02/25 05/02/25 05/03/25 15:00 23:00 07:00 Intake Total 300 ml 0 ml Output Total 1900 ml 600 ml 0 ml Balance -1900 ml -300 ml 0 ml medications Current Medications Medications Dose Ordered Sig/Chucho Route Start Time Stop Time Status Last Admin Dose Admin Ceftriaxone Sodium 50 ml @ 100 mls/hr DAILY@ IV 05/02/25 09:00 05/03/25 09:23 100 MLS/HR Acetaminophen/ Hydrocodone Bitart 1 tab Q4HP PRN PO 05/01/25 20:00 Ondansetron HCl 4 mg Q4HP PRN IV 05/01/25 20:00 05/01/25 20:52 4 MG Acetaminophen 650 mg Q6HP PRN PO 05/01/25 20:00 Nifedipine 30 mg DAILY PO 05/02/25 10:00 05/03/25 09:23 30 MG laboratory and microbiology Laboratory Tests 05/03/25 05:18 Test 05/03/25 05:18 Range/Units Serum Glucose 95 74-106 mg/dL Assessment/Plan Assessment Urinary retention with history of LUTs. CKD BPH Plan/Recommendation Voiding trial failed, laguna placed back in. Patient will require a diagnostic cystoscopy to be arranged as outpatient in Urology Clinic. PSA and CT scan abdomen and pelvis noncontrast study are ordered. Patient's serum creatinine is elevated at 2.1 and this may be his baseline. Plan discussed with: Patient DEANA VINCENT CONTACT CENTER ENGINEER May 03, 2025 15:41
--- NOTE | 2025-05-03 22:46 | DVHPN2 ---
Progress Note Date Seen: May 03, 2025 Has the PT tested + for MRSA If YES, has PT been informed?: No Medical Necessity Reason Pt with a Central, PICC or Fol: Yes The following are medically ne: Laguna Catheter Subjective Patient reports: No new complaints, Feels better Review of Systems: Deferred Objective vital signs Vital Sign Date Time Temp Pulse Resp B/P (MAP) Pulse Ox O2 Delivery O2 Flow Rate FiO2 05/03/25 21:00 99.6 95 20 121/84 (96) 98 99.6 05/03/25 08:00 Room Air* 0 21 Total Intake and Output 05/02/25 05/02/25 05/03/25 15:00 23:00 07:00 Intake Total 300 ml 0 ml Output Total 1900 ml 600 ml 0 ml Balance -1900 ml -300 ml 0 ml medications Current Medications Medications Dose Ordered Sig/Chucho Route Start Time Stop Time Status Last Admin Dose Admin Ceftriaxone Sodium 50 ml @ 100 mls/hr DAILY@09 IV 05/02/25 09:00 05/03/25 09:23 Acetaminophen/ Hydrocodone Bitart 1 tab Q4HP PRN PO 05/01/25 20:00 Ondansetron HCl 4 mg Q4HP PRN IV 05/01/25 20:00 05/01/25 20:52 Acetaminophen 650 mg Q6HP PRN PO 05/01/25 20:00 Nifedipine 30 mg DAILY PO 05/02/25 10:00 05/03/25 09:23 Sodium Chloride 1,000 ml @ 75 mls/hr [id number] IV 05/03/25 22:15 laboratory and microbiology Laboratory Tests 05/03/25 05:18 Test 05/03/25 05:18 Range/Units Serum Glucose 95 74-106 mg/dL Microbiology Date/Time Source Procedure Growth Status 05/01/25 18:00 Voided Urine Urine Culture - Preliminary Resulted 05/01/25 18:00 Blood Blood Culture - Preliminary NO GROWTH AFTER 48 HOURS OF INCUBATION. Resulted Problem List/Assessment/Plan Problem List/Assessment/Plan FERNANDO-likely hemodynamic prerenal chronic laguna HTN Obesity kidney stones plan ivf gentle chronic laguna management per urology will f/u ct noted check upcr Plan discussed with: Patient My Orders My Orders Orders - BALDEMAR ANDERSON MD Procedure Category Date Status Time Sodium Chloride 0.9% PHA 05/03/25 In Process 22:15 BALDEMAR ANDERSON MD May 03, 2025 22:46
[2025-05-04] VITALS (7 sets, daily range): BP systolic 116–146; BP diastolic 76–85; PULSE 76–86; RESP 17–20; TEMP 97.1–98.4; O2SAT 97–99
[2025-05-04] MEDS: SODIUM CHLORIDE 0.9% 1,000 ML IV SCH (01:42)
--- NOTE | 2025-05-04 12:56 | DVHPN2 ---
Progress Note - Dictate Date Seen: May 04, 2025 Has the PT tested + for MRSA If YES, has PT been informed?: Yes Medical Necessity Reason Pt with a Central, PICC or Fol: Yes The following are medically ne: Laguna Catheter Reason for laguna catheter: Bladder Retention/Obstruc Subjective Patient states he was only able to void minimally and not enough so the Laguna was put back in vital signs Vital Sign Date Time Temp Pulse Resp B/P (MAP) Pulse Ox O2 Delivery O2 Flow Rate FiO2 05/04/25 10:38 116/78 05/04/25 09:00 98.0 78 17 99 98.0 05/03/25 20:00 Room Air* 0 21 Total Intake and Output 05/03/25 05/03/25 05/04/25 15:00 23:00 07:00 Intake Total 50 ml 675 ml 150 ml Output Total 1200 ml 1500 ml Balance 50 ml -525 ml -1350 ml medications Current Medications Medications Dose Ordered Sig/Chucho Route Start Time Stop Time Status Last Admin Dose Admin Ceftriaxone Sodium 50 ml @ 100 mls/hr DAILY@09 IV 05/02/25 09:00 05/04/25 10:37 100 MLS/HR Acetaminophen/ Hydrocodone Bitart 1 tab Q4HP PRN PO 05/01/25 20:00 Ondansetron HCl 4 mg Q4HP PRN IV 05/01/25 20:00 05/01/25 20:52 4 MG Acetaminophen 650 mg Q6HP PRN PO 05/01/25 20:00 Nifedipine 30 mg DAILY PO 05/02/25 10:00 05/04/25 10:38 30 MG Sodium Chloride 1,000 ml @ 75 mls/hr [id number] IV 05/03/25 22:15 05/04/25 01:42 75 MLS/HR objective Laguna draining to gravity. Clear yellow drainiage. laboratory and microbiology Laboratory Tests 05/03/25 05:18 Test 05/03/25 05:18 Range/Units Serum Glucose 95 74-106 mg/dL Assessment/Plan Assessment Urinary retention BPH with LUTs CKD Kidney stones atrophic kidneys bilaterally - 2/2 medical renal disease microhematuria Plan/Recommendation Voiding trial failed, laguna replaced Patient will require a diagnostic cystoscopy to be arranged as outpatient in Urology Clinic. Initiate dual therapy with flomax and finasteride. monitor renal function PSA 2.3 CT scan abdomen and pelvis noncontrast study show small punctate stones. f/u for outpatient, stones are clinically insignificant recommend nephrology consultation Problems(with codes): (1) Calculus of kidney (2) Acquired renal cyst of right kidney (3) BPH w urinary obs/LUTS (4) CKD (chronic kidney disease) stage 3, GFR 30-59 ml/min (5) Microhematuria (6) Urinary tract infection, site not specified (7) Calcification of prostate Plan discussed with: Patient, Other (primary RN) Total Time (mins): 27 DEANA VINCENT BRICK OFFBEARER May 04, 2025 12:56 ELSY ALBARRAN NP May 04, 2025 16:28
--- NOTE | 2025-05-04 13:43 | DVHINCON2 ---
Date Seen: May 04, 2025 Referring Physician MD Ruthy Reason for Consultation Palpitations History of Present Illness This is a 65-year-old male patient who presents to emergency room with chief complaint of palpitations. Patient reports that the air conditioning stopped working at his house and his house temperature reached as high as 95 F. He states that he started experiencing palpitations and came to the emergency room for further evaluation. Initial twelve lead electrocardiogram reveals sinus tachycardia. At the time of assessment, the patient denies any cardiac symptoms. Significant past medical history includes hypertension, chronic kidney disease, chronic Pan, spinal stenosis, and paraplegia. He denies any previous cardiac history. Past Medical History Past medical history reviewed. No other significant than mentioned above. Past Surgical History Lithotripsy Family History: FH: dementia G8 FATHER FH: stroke G8 MOTHER Family History Family history reviewed. Social History Denies the use of tobacco, alcohol or illicit drugs. Allergies: Coded Allergies: Iodine (Verified Allergy, Unknown, 05/01/25) Home Meds Reported Medications Nitrofurantoin Monohyd Macro (Nitrofurantoin Monohydrat) 100 Mg Cap, 1 CAP PO BID 05/02/25 Home Meds Home medications reviewed. Current Medications Current Medications Medications (Trade) Dose Ordered Sig/Chucho Route PRN Reason Start Time Stop Time Status Last Admin Sodium Chloride 1,000 ml @ 75 mls/hr [id number] IV 05/03/25 22:15 05/04/25 13:10 Review of Systems Constitutional: No symptom reported Ears, Nose, & Throat: No symptom reported Eyes: No symptom reported Neurological: No symptoms reported Pulmonary/Respiratory: No symptoms reported Cardiovascular: Palpitations Gastrointestinal: No symptom reported Genitourinary: No symptom reported Musculoskeletal: No symptom reported Skin: No symptom reported Psychiatric: No symptom reported Endocrine: No symptom reported Hematologic/Lymphatic: No symptom reported Vital Signs Vital Signs Date Time Temp Pulse Resp B/P (MAP) Pulse Ox O2 Delivery O2 Flow Rate FiO2 05/04/25 10:38 116/78 05/04/25 09:00 98.0 78 17 99 98.0 05/03/25 20:00 Room Air* 0 21 Physical Exam General Appearance: Cooperative. Obese Pulmonary/Respiratory: Clear, bilateral breaths sounds. Cardiovascular/Chest: Regular rate and rhythm. Peripheral Pulses: 2+ Radial (R). 2+ Radial (L). 2+ Pedal (R). 2+ Pedal (L) Abdominal Exam: Normal bowel sounds. Ankle Exam: Negative ankle edema Lower extremities: Negative lower extremity edema Neuro/Mental Status: A/OX4, coherent. Thoughts/Psych: Normal thought pattern. Appropriate mood and affect. Good judgment and insight. Appearance: No acute distress. Skin Exam: Normal inspection. Normal color. Warm and dry. Labs/Diagnostic Data Labs Test 05/03/25 05:18 05/02/25 05:28 05/01/25 18:00 Range/Units White Blood Count 11.7 H 4.4-10.8 10^3/uL Red Blood Count 3.85 L 4.5-5.90 10^6/uL Hemoglobin 11.4 L 13.5-17.5 g/dL Hematocrit 34.0 L 41.0-53.0 % Mean Corpuscular Volume 88.5 80.0-100.0 fL Mean Corpuscular Hemoglobin 29.7 28.0-32.0 pg Mean Corpuscular Hemoglobin Concent 33.6 32.0-36.0 g/dL Red Cell Distribution Width 14.1 11.8-14.3 % Platelet Count 213 140-450 10^3/uL Mean Platelet Volume 8.9 6.9-10.8 fL Neutrophils (%) (Auto) 72.6 37.0-80.0 % Lymphocytes (%) (Auto) 15.1 10.0-50.0 % Monocytes (%) (Auto) 6.5 0.0-12.0 % Eosinophils (%) (Auto) 5.4 0.0-7.0 % Basophils (%) (Auto) 0.4 0.0-2.0 % Neutrophils # (Auto) 8.5 1.6-8.6 10 ^3/uL Lymphocytes # (Auto) 1.8 0.4-5.4 10 ^3/uL Monocytes # (Auto) 0.8 0-1.3 10 ^3/uL Eosinophils # (Auto) 0.6 0-0.8 10 ^3/uL Basophils # (Auto) 0 0-0.2 10 ^3/uL Nucleated Red Blood Cells 0.0 % Sodium Level 139 # 136-145 mmol/L Potassium Level 3.9 3.5-5.1 mmol/L Chloride Level 111 H 98-107 mmol/L Carbon Dioxide Level 19 L 20-31 mmol/L Anion Gap 9 5-15 Blood Urea Nitrogen 35 H 9-23 mg/dL Creatinine 2.06 H 0.700-1.30 mg/dL Glomerular Filtration Rate Calc 35 >90 mL/min BUN/Creatinine Ratio 17.0 10.0-20.0 Serum Glucose 95 74-106 mg/dL Calcium Level 8.3 L 8.7-10.4 mg/dL Free Prostate Specific Antigen 0.32 N/A ng/mL Percent Free Prostate Specific Ag 13.9 . % Prostate Specific Antigen Total 2.3 0.0-4.0 ng/mL Urine Color Colorless Yellow Urine Clarity Ex.turbid Clear Urine pH 7.0 5.0-9.0 Urine Specific [place] 1.010 1.001-1.035 Urine Protein 1+ H Negative Urine Ketones Negative Negative Urine Blood 2+ H Negative /uL Urine Nitrite Negative Negative Urine Bilirubin Negative Negative Urine Urobilinogen 2 H Negative mg/dL Urine Leukocyte Esterase 3+ Negative /uL Urine RBC 33 0 - 3 /hpf Urine WBC Clumps Present None Seen /hpf Urine Microscopic WBC 74 H 0-3 /HPF Urine Squamous Epithelial Cells Few <5 /hpf Urine Amorphous Crystals Few None Seen /hpf Urine Bacteria Few H None Seen /hpf Urine Mucus Few None Seen Urine Glucose Normal Normal mg/dL Lactic Acid Level 0.7 0.4-2.0 mmol/L Microbiology Date/Time Source Procedure Growth Status 05/01/25 18:00 Voided Urine Urine Culture - Preliminary Resulted 05/01/25 18:00 Blood Blood Culture - Preliminary NO GROWTH AFTER 48 HOURS OF INCUBATION. Resulted Assessment Palpitations, rule out cardiac arrhythmia Rule out structural heart disease Hypertension Chronic kidney disease Urinary retention Chronic Pan catheter Paraplegia Plan/Recommendation We will continue following plan/recommendations (Dr. Isabel): We will proceed with obtaining a transthoracic echocardiogram to evaluate cardiac function. Twelve lead electrocardiogram done in the emergency room reviewed and reveal sinus tachycardia. At the time of assessment, the patient is not on telemetry. We will upgrade the patient to telemetry to assess for any arrhythmias. Check thyroid function, magnesium, and urine drug screen. Thank you for allowing us to care for this patient. Please call with any questions or concerns. Critical care time spent: 44 minutes This medical document was created using an electronic medical record system with voice recognition software and computerized dictation system. Although this document has been carefully reviewed, there might still be some phonetic and typographical errors. Occasional wrong-word or ``sound-alike substitutions may have occurred due to the inherent limitations of voice recognition software. These areas are purely typographical due to imperfections of the software programs and do not reflect any compromise in the patient's medical care. Maira parks read the chart carefully and recognize, using context, where these substitutions have occurred. Plan discussed with: Patient NYHA Physical activity limitations: NA Date of Service: May 04, 2025 Billing Provider: DENG COFFMAN Cardiology Common Codes: [id number] INP/OBS CARE (High) Cardiology Consultation Codes: [id number] CONSULT <45MIN DENG COFFMAN May 04, 2025 13:43
--- NOTE | 2025-05-04 15:44 | DVHPN2 ---
Progress Note Date Seen: May 04, 2025 Has the PT tested + for MRSA If YES, has PT been informed?: Yes Medical Necessity Reason Pt with a Central, PICC or Fol: Yes The following are medically ne: Laguna Catheter Reason for laguna catheter: Bladder Retention/Obstruc Subjective Patient reports: No new complaints Objective vital signs Vital Sign Date Time Temp Pulse Resp B/P (MAP) Pulse Ox O2 Delivery O2 Flow Rate FiO2 05/04/25 13:00 98.0 76 17 127/85 (99) 98 98.0 05/03/25 20:00 Room Air* 0 21 Total Intake and Output 05/03/25 05/03/25 05/04/25 15:00 23:00 07:00 Intake Total 50 ml 675 ml 150 ml Output Total 1200 ml 1500 ml Balance 50 ml -525 ml -1350 ml medications Current Medications Medications Dose Ordered Sig/Chucho Route Start Time Stop Time Status Last Admin Dose Admin Ceftriaxone Sodium 50 ml @ 100 mls/hr DAILY@09 IV 05/02/25 09:00 05/04/25 10:37 100 MLS/HR Acetaminophen/ Hydrocodone Bitart 1 tab Q4HP PRN PO 05/01/25 20:00 Ondansetron HCl 4 mg Q4HP PRN IV 05/01/25 20:00 05/01/25 20:52 4 MG Acetaminophen 650 mg Q6HP PRN PO 05/01/25 20:00 Nifedipine 30 mg DAILY PO 05/02/25 10:00 05/04/25 10:38 30 MG Sodium Chloride 1,000 ml @ 75 mls/hr [id number] IV 05/03/25 22:15 05/04/25 13:10 75 MLS/HR Examination Gen: NAD, appears stated age Lungs: CTA, bilateral air entry Heart: RRR, normal S1 and S2 Abd: normoactive bowel sounds, soft, nontender, nondistended Ext: No edema Neuro: A&O x4 laboratory and microbiology Laboratory Tests 05/03/25 05:18 Test 05/03/25 05:18 Range/Units Serum Glucose 95 74-106 mg/dL Microbiology Date/Time Source Procedure Growth Status 05/01/25 18:00 Voided Urine Urine Culture - Final Complete 05/01/25 18:00 Blood Blood Culture - Preliminary NO GROWTH AFTER 48 HOURS OF INCUBATION. Resulted Labs and/or images reviewed: Labs reviewed by me Problem List/Assessment/Plan Problem List/Assessment/Plan IMP FERNANDO-likely hemodynamic prerenal Chronic laguna HTN Obesity Kidney stones REC -Chemistry panel -Continue IVF -Strict I&Os -Urology on board -We will continue to follow Plan discussed with: Patient ALEX CHAVEZ [employer] May 04, 2025 15:44
[2025-05-04 15:52] LABS: Magnesium 2.2 mg/dL (1.6-2.6); Triglycerides 68.0 mg/dL (< 150)
[2025-05-04 15:54] LABS: Cholesterol 92.0 mg/dL (< 200); HDL Cholesterol 35.0 mg/dL (40-59)
--- NOTE | 2025-05-04 17:07 | DVHPN2 ---
Subjective no complaints/has neurogeneic bladder and has chronic laguna and changed every month Changes from previous H/P or p: No Changes Objective Vitals Vital Signs Date Time Temp Pulse Resp B/P (MAP) Pulse Ox O2 Delivery O2 Flow Rate FiO2 05/04/25 13:00 98.0 76 17 127/85 (99) 98 98.0 05/03/25 20:00 Room Air* 0 21 Intake/Output Intake and Output 05/04/25 07:00 Intake Total 875 ml Output Total 2700 ml Balance -1825 ml Intake Oral 825 ml IV Total 50 ml Output Urine Total 2700 ml General Appearance: Alert, Oriented X3, Cooperative, No acute distress Cardiovascular: Regular rate, Normal S1, Normal S2 Abdomen: Normal bowel sounds, Soft, No tenderness Musculoskeletal: Other (weakness both lower extremities- normal power ue) Extremities: No edema Psych/Mental Status: Mental status NL, Mood NL Medications Current Medications Medications Dose Ordered Sig/Chucho Route Start Time Stop Time Status Last Admin Dose Admin Ceftriaxone Sodium 50 ml @ 100 mls/hr DAILY@09 IV 05/02/25 09:00 05/04/25 10:37 100 MLS/HR Acetaminophen/ Hydrocodone Bitart 1 tab Q4HP PRN PO 05/01/25 20:00 Ondansetron HCl 4 mg Q4HP PRN IV 05/01/25 20:00 05/01/25 20:52 4 MG Acetaminophen 650 mg Q6HP PRN PO 05/01/25 20:00 Nifedipine 30 mg DAILY PO 05/02/25 10:00 05/04/25 10:38 30 MG Sodium Chloride 1,000 ml @ 75 mls/hr [id number] IV 05/03/25 22:15 05/04/25 13:10 75 MLS/HR Laboratory Results Laboratory Tests 05/03/25 05:18 Chemistry Test 05/04/25 15:00 Magnesium Level 2.2 mg/dL (1.6-2.6) Lipid panel Test 05/04/25 15:00 Cholesterol Level 92 mg/dL (< 200) HDL Cholesterol 35 mg/dL (40-59) L Triglycerides Level 68 mg/dL (< 150) HgA1c, TSH Test 05/04/25 15:00 Hemoglobin A1c 5.1 % A1C (<5.7) Thyroid Stimulating Hormone (TSH) 0.36 uIU/mL (0.55-4.78) L Urinalysis Test 05/01/25 18:00 Urine Color Colorless (Yellow) Urine Clarity Ex.turbid (Clear) Urine pH 7.0 (5.0-9.0) Urine Specific [place] 1.010 (1.001-1.035) Urine Protein 1+ (Negative) H Urine Ketones Negative (Negative) Urine Blood 2+ /uL (Negative) H Urine Nitrite Negative (Negative) Urine Bilirubin Negative (Negative) Urine Urobilinogen 2 mg/dL (Negative) H Urine Leukocyte Esterase 3+ /uL (Negative) Urine RBC 33 /hpf (0 - 3) Urine WBC Clumps Present /hpf (None Seen) Urine Microscopic WBC 74 /HPF (0-3) H Urine Squamous Epithelial Cells Few /hpf (<5) Urine Amorphous Crystals Few /hpf (None Seen) Urine Bacteria Few /hpf (None Seen) H Urine Mucus Few (None Seen) Urine Glucose Normal mg/dL (Normal) Microbiology Microbiology Date/Time Source Procedure Growth Status 05/01/25 18:00 Voided Urine Urine Culture - Final Complete 05/01/25 18:00 Blood Blood Culture - Preliminary NO GROWTH AFTER 48 HOURS OF INCUBATION. Resulted Labs and/or images reviewed: Labs reviewed by me, Image(s) reviewed by me Assessment/Plan Assessment/Plan palpitations evaluatte neurogenic bladder/? uti- cultures so far negative lumbar spinal stenosis obesity Plan discussed with: Patient, Other My Orders Orders - SUPRIYA SANTOYO MD Procedure Category Date Status Time * Cardiology Consult CONS 05/04/25 Transmitted 10:48 Echo 2d Mode Cardiac US 05/04/25 Logged DOP 10:48 Mrsa Screen UMAIR 05/04/25 In Process 12:30 Transfer Orders XFER 05/04/25 Transmitted 16:43 Date of Service: May 04, 2025 Billing Provider: SUPRIYA SANTOYO MD Common Visit Codes: [id number] INP/OBS CARE(MOD) SUPRIYA SANTOYO MD May 04, 2025 17:07
[2025-05-05] VITALS (7 sets, daily range): BP systolic 109–143; BP diastolic 66–79; PULSE 57–77; RESP 16–20; TEMP 97.4–98.1; O2SAT 97–98
[2025-05-05 00:03] LABS: Amphetamine Screen, Urine Neg (NEGATIVE); Barbiturate Scree,Urine Neg (NEGATIVE); Benzodiazephine Screen, Urine Neg (NEGATIVE); Cannabinoid Screen, Urine Neg (NEGATIVE); Cocaine Screen, Urine Neg (NEGATIVE); Opiate Scree,Urine Neg (NEGATIVE)
[2025-05-05 00:15] LABS: Phencyclidine Screen, Urine Neg (NEGATIVE)
[2025-05-05 06:44] LABS: Anion Gap 8 (5-15); Carbon Dioxide 21 mmol/L (20-31); Potassium 4.0 mmol/L (3.5-5.1); Sodium 143 mmol/L (136-145)
[2025-05-05 06:50] LABS: BUN/Creatinine Ratio 14.6 (10.0-20.0); Glucose 101 mg/dL (74-106)
[2025-05-05 06:54] LABS: Blood Urea Nitrogen 30 mg/dL (9-23); Calcium 8.4 mg/dL (8.7-10.4); Chloride 114 mmol/L (98-107)
--- NOTE | 2025-05-05 14:40 | DVHPN2 ---
Progress Note Date Seen: May 05, 2025 Has the PT tested + for MRSA If YES, has PT been informed?: Yes Medical Necessity Reason Pt with a Central, PICC or Fol: Yes The following are medically ne: Laguna Catheter Reason for laguna catheter: Bladder Retention/Obstruc Subjective Patient reports: No new complaints, Feels better Objective vital signs Vital Sign Date Time Temp Pulse Resp B/P (MAP) Pulse Ox O2 Delivery O2 Flow Rate FiO2 05/05/25 13:00 97.7 77 16 135/79 (97) 98 97.7 05/05/25 08:00 Room Air* 0 21 Total Intake and Output 05/04/25 05/04/25 05/05/25 15:00 23:00 07:00 Intake Total 50 ml 400 ml 1350 ml Output Total 600 ml 1050 ml Balance 50 ml -200 ml 300 ml medications Current Medications Medications Dose Ordered Sig/Chucho Route Start Time Stop Time Status Last Admin Dose Admin Ceftriaxone Sodium 50 ml @ 100 mls/hr DAILY@09 IV 05/02/25 09:00 05/05/25 08:27 100 MLS/HR Acetaminophen/ Hydrocodone Bitart 1 tab Q4HP PRN PO 05/01/25 20:00 Ondansetron HCl 4 mg Q4HP PRN IV 05/01/25 20:00 05/01/25 20:52 4 MG Acetaminophen 650 mg Q6HP PRN PO 05/01/25 20:00 Nifedipine 30 mg DAILY PO 05/02/25 10:00 05/05/25 10:09 30 MG Sodium Chloride 1,000 ml @ 75 mls/hr [id number] IV 05/03/25 22:15 05/05/25 11:55 75 MLS/HR Examination Gen: NAD, appears stated age Lungs: CTA, bilateral air entry Heart: RRR, normal S1 and S2 Abd: normoactive bowel sounds, soft, nontender, nondistended Ext: No edema Neuro: A&O x4 laboratory and microbiology Laboratory Tests 05/05/25 05:42 05/03/25 05:18 Test 05/05/25 05:42 Range/Units Serum Glucose 101 74-106 mg/dL Microbiology Date/Time Source Procedure Growth Status 05/04/25 12:45 Nose MRSA Screen - Final Complete 05/01/25 18:00 Voided Urine Urine Culture - Final Complete 05/01/25 18:00 Blood Blood Culture - Preliminary NO GROWTH AFTER 72 HOURS OF INCUBATION. Resulted Labs and/or images reviewed: Labs reviewed by me Problem List/Assessment/Plan Problem List/Assessment/Plan IMP FERNANDO-likely hemodynamic prerenal Chronic laguna HTN Obesity Kidney stones REC -Stable kidney function -Chemistry panel in am -Continue IVF -Strict I&Os -Urology on board -We will continue to follow Plan discussed with: Patient Dietary Evaluation Review Recommendations by RD: Dietary education by RD Comments: 1) Add renal cardiac restriction to diet 2) Encourage optimal PO intake 3) Refer to outpatient RD for weight management 4) Follow-up with cardiology, nephrology, and urology 5) Continue to monitor I&O, labs, and skin integrity Expected Outcomes/Goals: 1) appetite and labs to improve 2) gradual wt loss 2) f/u in 3-5 days ALEX CHAVEZP May 05, 2025 14:40
--- NOTE | 2025-05-05 16:36 | DVHPN2 ---
Subjective no complaints/has neurogeneic bladder and has chronic laguna and changed every month Changes from previous H/P or p: No Changes Objective Vitals Vital Signs Date Time Temp Pulse Resp B/P (MAP) Pulse Ox O2 Delivery O2 Flow Rate FiO2 05/05/25 13:00 97.7 77 16 135/79 (97) 98 97.7 05/05/25 08:00 Room Air* 0 21 Intake/Output Intake and Output 05/05/25 07:00 Intake Total 1800 ml Output Total 1650 ml Balance 150 ml Intake Oral 800 ml IV Total 1000 ml Output Urine Total 1650 ml General Appearance: Alert, Oriented X3, Cooperative, No acute distress Cardiovascular: Regular rate, Normal S1, Normal S2 Abdomen: Normal bowel sounds, Soft, No tenderness Musculoskeletal: Other (weakness both lower extremities- normal power ue) Extremities: No edema Psych/Mental Status: Mental status NL, Mood NL Medications Current Medications Medications Dose Ordered Sig/Chucho Route Start Time Stop Time Status Last Admin Dose Admin Ceftriaxone Sodium 50 ml @ 100 mls/hr DAILY@09 IV 05/02/25 09:00 05/05/25 08:27 100 MLS/HR Acetaminophen/ Hydrocodone Bitart 1 tab Q4HP PRN PO 05/01/25 20:00 Ondansetron HCl 4 mg Q4HP PRN IV 05/01/25 20:00 05/01/25 20:52 4 MG Acetaminophen 650 mg Q6HP PRN PO 05/01/25 20:00 Nifedipine 30 mg DAILY PO 05/02/25 10:00 05/05/25 10:09 30 MG Sodium Chloride 1,000 ml @ 75 mls/hr [id number] IV 05/03/25 22:15 05/05/25 11:55 75 MLS/HR Laboratory Results Laboratory Tests 05/03/25 05:18 05/05/25 05:42 Chemistry Test 05/05/25 05:42 Calcium Level 8.4 mg/dL (8.7-10.4) L Urinalysis Test 05/01/25 18:00 Urine Color Colorless (Yellow) Urine Clarity Ex.turbid (Clear) Urine pH 7.0 (5.0-9.0) Urine Specific [place] 1.010 (1.001-1.035) Urine Protein 1+ (Negative) H Urine Ketones Negative (Negative) Urine Blood 2+ /uL (Negative) H Urine Nitrite Negative (Negative) Urine Bilirubin Negative (Negative) Urine Urobilinogen 2 mg/dL (Negative) H Urine Leukocyte Esterase 3+ /uL (Negative) Urine RBC 33 /hpf (0 - 3) Urine WBC Clumps Present /hpf (None Seen) Urine Microscopic WBC 74 /HPF (0-3) H Urine Squamous Epithelial Cells Few /hpf (<5) Urine Amorphous Crystals Few /hpf (None Seen) Urine Bacteria Few /hpf (None Seen) H Urine Mucus Few (None Seen) Urine Glucose Normal mg/dL (Normal) Microbiology Microbiology Date/Time Source Procedure Growth Status 05/04/25 12:45 Nose MRSA Screen - Final Complete 05/01/25 18:00 Voided Urine Urine Culture - Final Complete 05/01/25 18:00 Blood Blood Culture - Preliminary NO GROWTH AFTER 72 HOURS OF INCUBATION. Resulted Labs and/or images reviewed: Labs reviewed by me Assessment/Plan Assessment/Plan palpitations evaluatte/await cardiology clearance/echo report neurogenic bladder/? uti- cultures so far negative lumbar spinal stenosis obesity Plan discussed with: Patient My Orders Orders - SUPRIYA SANTOYO MD Procedure Category Date Status Time Transfer Orders XFER 05/04/25 Transmitted 16:43 Notify Provider NOTICE 05/05/25 Transmitted Malnutrition 12:58 Dietary Education By NOURISH 05/05/[address] 12:58 Dietary NOTICE 05/05/25 Transmitted Recommendations 12:58 Date of Service: May 05, 2025 Billing Provider: SUPRIYA SANTOYO MD Common Visit Codes: [id number] INP/OBS CARE(MOD) SUPRIYA SANTOYO MD May 05, 2025 16:35
[2025-05-06 01:00] VITALS: BP 106/73; PULSE 73; RESP 17; TEMP 97.9; O2SAT 97
[2025-05-06 05:00] VITALS: BP 117/69; PULSE 65; RESP 18; TEMP 97.5; O2SAT 97
[2025-05-06] MEDS ORDERED: SALINE 0.65 % NASAL SPRAY 45ML BOTTLE EACHNOSTRI PRN (06:45)
[2025-05-06 09:00] VITALS: BP 127/77; PULSE 66; RESP 19; TEMP 97.4; O2SAT 98
[2025-05-06 10:53] VITALS: BP 127/77; PULSE 66; RESP 19; TEMP 97.4; O2SAT 97
--- NOTE | 2025-05-06 14:53 | DVHPN2 ---
Progress Note Date Seen: May 06, 2025 Has the PT tested + for MRSA If YES, has PT been informed?: Yes Medical Necessity Reason Pt with a Central, PICC or Fol: Yes The following are medically ne: Laguna Catheter Reason for laguna catheter: Bladder Retention/Obstruc Subjective Review of Systems Pt states he will be going home today Patient reports: No new complaints, Feels better Objective vital signs Vital Sign Date Time Temp Pulse Resp B/P (MAP) Pulse Ox O2 Delivery O2 Flow Rate FiO2 05/06/25 11:20 127/77 05/06/25 10:53 97.4 66 19 97 05/06/25 08:00 Room Air* 0 21 Total Intake and Output 05/05/25 05/05/25 05/06/25 15:00 23:00 07:00 Intake Total 50 ml 620 ml 1850 ml Output Total 1325 ml 300 ml Balance 50 ml -705 ml 1550 ml medications Current Medications Medications Dose Ordered Sig/Chucho Route Start Time Stop Time Status Last Admin Dose Admin Ceftriaxone Sodium 50 ml @ 100 mls/hr DAILY@09 IV 05/02/25 09:00 05/06/25 08:51 100 MLS/HR Acetaminophen/ Hydrocodone Bitart 1 tab Q4HP PRN PO 05/01/25 20:00 Ondansetron HCl 4 mg Q4HP PRN IV 05/01/25 20:00 05/01/25 20:52 4 MG Acetaminophen 650 mg Q6HP PRN PO 05/01/25 20:00 Nifedipine 30 mg DAILY PO 05/02/25 10:00 05/06/25 11:20 30 MG Sodium Chloride 1,000 ml @ 75 mls/hr [id number] IV 05/03/25 22:15 05/06/25 00:52 75 MLS/HR Sodium Chloride 1 spr Q6HPRN PRN EACHNOSTRI 05/06/25 06:45 Examination Gen: NAD, appears stated age Lungs: CTA, bilateral air entry Heart: RRR, normal S1 and S2 Abd: normoactive bowel sounds, soft, nontender, nondistended Ext: No edema Neuro: A&O x4 laboratory and microbiology Laboratory Tests 05/05/25 05:42 05/03/25 05:18 Test 05/05/25 05:42 Range/Units Serum Glucose 101 74-106 mg/dL Microbiology Date/Time Source Procedure Growth Status 05/04/25 12:45 Nose MRSA Screen - Final Complete 05/01/25 18:00 Voided Urine Urine Culture - Final Complete 05/01/25 18:00 Blood Blood Culture - Preliminary NO GROWTH AFTER 72 HOURS OF INCUBATION. Resulted Problem List/Assessment/Plan Problem List/Assessment/Plan IMP FERNANDO-likely hemodynamic prerenal Chronic laguna HTN Obesity Kidney stones REC -Follow up outpatient with nephrology clinic in 2 weeks. -Adequate hydration -Strict I&Os -Urology on board Plan discussed with: Patient Dietary Evaluation Review Recommendations by RD: Dietary education by RD Comments: 1) Add renal cardiac restriction to diet 2) Encourage optimal PO intake 3) Refer to outpatient RD for weight management 4) Follow-up with cardiology, nephrology, and urology 5) Continue to monitor I&O, labs, and skin integrity Expected Outcomes/Goals: 1) appetite and labs to improve 2) gradual wt loss 2) f/u in 3-5 days ALEX CHAVEZ May 06, 2025 14:53
[2025-05-06 21:00] VITALS: BP 166/83; PULSE 83; RESP 17; TEMP 98.8; O2SAT 96
[2025-05-07 01:00] VITALS: BP 124/79; PULSE 91; RESP 18; TEMP 97.9; O2SAT 95
[2025-05-07 05:00] VITALS: BP 150/83; PULSE 87; RESP 18; TEMP 98.8; O2SAT 95
--- NOTE | 2025-05-11 14:45 | ECG ---
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
--- NOTE | 2025-05-29 13:55 | DVHDS2 ---
Discharge Summary Date of Admission May 01, 2025 at 19:46 Date of Discharge: May 06, 2025 Admitting Diagnosis palpitations// arrythmias ruled out//complicated uti ruled out Wounds: nil Labs/Diagnostic Data: Laboratory Results Test 05/05/25 05:42 05/04/25 23:30 05/04/25 15:00 05/03/25 05:18 Sodium Level 143 mmol/L (136-145) Potassium Level 4.0 mmol/L (3.5-5.1) Chloride Level 114 mmol/L (98-107) Carbon Dioxide Level 21 mmol/L (20-31) Anion Gap 8 (5-15) Blood Urea Nitrogen 30 mg/dL (9-23) Creatinine 2.05 mg/dL (0.700-1.30) Glomerular Filtration Rate Calc 35 mL/min (>90) BUN/Creatinine Ratio 14.6 (10.0-20.0) Serum Glucose 101 mg/dL (74-106) Calcium Level 8.4 mg/dL (8.7-10.4) Urine Opiates Screen Neg (NEGATIVE) Urine Fentanyl Screen Neg (NEGATIVE) Urine Barbiturates Screen Neg (NEGATIVE) Urine Phencyclidine Screen Neg (NEGATIVE) Urine Amphetamines Screen Neg (NEGATIVE) Urine Benzodiazepines Screen Neg (NEGATIVE) Urine Cocaine Screen Neg (NEGATIVE) Urine Cannabinoids Screen Neg (NEGATIVE) Hemoglobin A1c 5.1 % A1C (<5.7) Magnesium Level 2.2 mg/dL (1.6-2.6) Triglycerides Level 68 mg/dL (< 150) Cholesterol Level 92 mg/dL (< 200) LDL Cholesterol 48 mg/dL (< 100) HDL Cholesterol 35 mg/dL (40-59) Thyroid Stimulating Hormone (TSH) 0.36 uIU/mL (0.55-4.78) White Blood Count 11.7 10^3/uL (4.4-10.8) Red Blood Count 3.85 10^6/uL (4.5-5.90) Hemoglobin 11.4 g/dL (13.5-17.5) Hematocrit 34.0 % (41.0-53.0) Mean Corpuscular Volume 88.5 fL (80.0-100.0) Mean Corpuscular Hemoglobin 29.7 pg (28.0-32.0) Mean Corpuscular Hemoglobin Concent 33.6 g/dL (32.0-36.0) Red Cell Distribution Width 14.1 % (11.8-14.3) Platelet Count 213 10^3/uL (140-450) Mean Platelet Volume 8.9 fL (6.9-10.8) Neutrophils (%) (Auto) 72.6 % (37.0-80.0) Lymphocytes (%) (Auto) 15.1 % (10.0-50.0) Monocytes (%) (Auto) 6.5 % (0.0-12.0) Eosinophils (%) (Auto) 5.4 % (0.0-7.0) Basophils (%) (Auto) 0.4 % (0.0-2.0) Neutrophils # (Auto) 8.5 10 ^3/uL (1.6-8.6) Lymphocytes # (Auto) 1.8 10 ^3/uL (0.4-5.4) Monocytes # (Auto) 0.8 10 ^3/uL (0-1.3) Eosinophils # (Auto) 0.6 10 ^3/uL (0-0.8) Basophils # (Auto) 0 10 ^3/uL (0-0.2) Nucleated Red Blood Cells 0.0 % Test 05/02/25 05:28 05/01/25 18:00 Free Prostate Specific Antigen 0.32 ng/mL (N/A) Percent Free Prostate Specific Ag 13.9 % (.) Prostate Specific Antigen Total 2.3 ng/mL (0.0-4.0) Urine Color Colorless (Yellow) Urine Clarity Ex.turbid (Clear) Urine pH 7.0 (5.0-9.0) Urine Specific [place] 1.010 (1.001-1.035) Urine Protein 1+ (Negative) Urine Ketones Negative (Negative) Urine Blood 2+ /uL (Negative) Urine Nitrite Negative (Negative) Urine Bilirubin Negative (Negative) Urine Urobilinogen 2 mg/dL (Negative) Urine Leukocyte Esterase 3+ /uL (Negative) Urine RBC 33 /hpf (0 - 3) Urine WBC Clumps Present /hpf (None Seen) Urine Microscopic WBC 74 /HPF (0-3) Urine Squamous Epithelial Cells Few /hpf (<5) Urine Amorphous Crystals Few /hpf (None Seen) Urine Bacteria Few /hpf (None Seen) Urine Mucus Few (None Seen) Urine Glucose Normal mg/dL (Normal) Lactic Acid Level 0.7 mmol/L (0.4-2.0) Other Laboratory Tests 05/05/25 05:42 05/03/25 05:18 Brief Hx & Hospital Course: pt was admitted for palpitations. patient was concerned ou having uti because the last time he had had severe uti felt the same symptoms. patient laguna was changed and cultures were negatiive. pt was monitored for arrythmias -none//electrolytes were normal. pt had echo ordered but he declined stating he had normal echo at [facility] last month and has follow up with his medical administrative specialist next week. Consults/Reason for consult cardiology dr saha on admission cardiology on discharge nephrology koby wang Operations or Procedures nilnil Condition at Discharge: Fair Final Diagnosis/Problems List Palpatations- resolved spinal stenosis wheel chair/bed bound status chronic laguna status Discharge Disposition: Home SNF Discharge Will this Physician continue t: No Discharge Instruct/Medications Diet: Regular Activity: Bedrest- baseline Activity comment: reposition every 3hrs in day time to avoid pressure ulcers Follow Up/Referral: pcp/medical administrative specialist jayleen bland on 05/09/25- has appointment already No Active Prescriptions or Reported Meds Discharge Statement: "Patient was advised to return to the ER or call 911 if any headaches, dizziness, shortness of breath, chest pain, abdominal pain, bleeding, fevers, or worsening of medical condition. Patient was counseled about treatment plan, medications, possible side effects, patientverbalized understanding. All questions were answered to the best of my ability. This discharge took greater then 30 minutes in planning, reviewing documentation, counseling the patient, and discussing with other team members." ASSESSMENT ASSESSMENT Assessment Palpatations Date of Service: May 06, 2025 Billing Provider: SUPRIYA SANTOYO MD Common Visit Codes: 20931-AVZ/OBS DISCH DAY >30min SUPRIYA SANTOYO MD May 29, 2025 13:55
== END 2025-05-06 15:23 | disposition home or self-care (01) | DRG 309 ==
LOC: EDBD 17:45 → ER 17:45 → OVERFLOW 19:46 → EAST 05-02 14:44 → CENTRAL 05-03 07:45 → TELE-CENTR 05-04 13:40 → CENTRAL 05-04 16:42
PROVIDERS: ADMIT Internal Medicine; ATTEND Internal Medicine
DX: R00.2 Palpitations (principal); G82.20 Paraplegia, unspecified; N13.8 Other obstructive and reflux uropathy; N18.32 Chronic kidney disease, stage 3b; R32 Unspecified urinary incontinence; E66.9 Obesity, unspecified; I12.9 Hypertensive chronic kidney disease with stage 1 through stage 4 chronic kidney disease, or unspecified chronic kidney disease; M48.061 Spinal stenosis, lumbar region without neurogenic claudication; N20.0 Calculus of kidney; N28.1 Cyst of kidney, acquired; N40.1 Benign prostatic hyperplasia with lower urinary tract symptoms; N42.89 Other specified disorders of prostate; Z74.01 Bed confinement status; Z82.3 Family history of stroke; Z87.891 Personal history of nicotine dependence
CPT/HCPCS: 36415; 71045; 74176; 80048; 80061; 80307; 81001; 83036; 83605; 83735; 84154; 84443; 85025; 87040; 87081; 87086; 93005; 96365; 96375; G0378; J2405

== ENCOUNTER 2025-07-12 10:11 | Inpatient (IN) | payer MEDICARE, MEDICAID ==
[~2025-07-12] VITALS: Ht 180.3 cm; Wt 118.3 kg
[2025-07-12 10:30] VITALS: PULSE 92; RESP 14; O2SAT 96
--- NOTE | 2025-07-12 11:10 | DVH ---
CHEST RADIOGRAPH Indication: chest pain Technique: Single frontal view of the chest was obtained COMPARISON: XY CHEST PORTABLE on DOS: 05/01/25, XR CHEST 1 VIEW on DOS: 04/08/25 FINDINGS: Lines and Tubes: None Lungs: Clear Pleura: No effusion. No pneumothorax. Cardiomediastinal contours: Unremarkable Bones: Unremarkable IMPRESSION: No acute disease.
[2025-07-12 11:20] LABS: Hematocrit 36.5 % (41.0-53.0); Hemoglobin 12.2 g/dL (13.5-17.5); Mean Corpuscular Hemoglobin 29.5 pg (28.0-32.0); Mean Corpuscular Volume 88.0 fL (80.0-100.0); Nucleated Red Blood Cells % 0.1 %
--- NOTE | 2025-07-12 11:21 | ED.PDOC ---
History of Present Illness HPI Comments This is a 65 year old male MAYRAA presenting to the ED with chief complaint of palpitations. Patient reports that he has been experiencing a headache with associated palpitations and nausea since this morning. Patient relays that he has been taking antibiotics for a UTI he has been dealing with, however, his u rine is still cloudy and foul smelling despite finishing them. Patient states his palpitations are a usual symptom of an untreated UTI for him. Patient denies any N/V/D, chest pain, SOB, dizziness, or fever. Chief Complaint: Palpitations Time Seen by MD: 11:18 Reviewed Notes: Nurses Notes, Acute Care Physical Therapist Notes, Medications, Allergies Allergies: Coded Allergies: Ciprofloxacin (Verified Allergy, Unknown, 07/12/25) Iodine (Verified Allergy, Unknown, 05/01/25) Home Meds No Active Prescriptions or Reported Meds Information Source: Patient, Emergency Med Personnel Mode of Arrival: EMS Severity: Moderate Timing: Days Duration: Since onset Prehospital treatment: None Past Medical History PAST MEDICAL HISTORY: HTN, UTI'S Surgical History: Denies all surgeries Family History Family History: Reviewed,noncontributory to illness, No family hx of Cancer, No family hx of DM, No family hx of Heart saulo, No family hx of HTN, No family hx ofKidney saulo, No family hx of Liver saulo, No family hx of Lung saulo, No family hx of Stroke Social History Smoker: Quit Greater Than 1 Year Alcohol: Denies ETOH Use Drugs: Denies Drug Use Lives In: Home, Assisted Care Constitutional: denies: chills, diaphoresis, fatigue, fever, malaise, sweats, weakness, others EENTM: denies: blurred vision, double vision, ear bleeding, ear discharge, ear drainage, ear pain, ear ringing, eye pain, eye redness, hearing loss, mouth pain, mouth swelling, nasal discharge, nose bleeding, nose congestion, nose pain, photophobia, tearing, throat pain, throat swelling, voice changes, others Respiratory: denies: cough, hemoptysis, orthopnea, SOB at rest, shortness of breath, SOB with excertion, stridor, wheezing, others Cardiovascular: reports: palpitations; denies: chest pain, dizzy spells, diaphoresis, Dyspnea on exertion, edema, irregular heart beat, left arm pain, lightheadedness, PND, syncope, others Gastrointestinal: reports: nausea; denies: abdomen distended, abdominal pain, blood streaked bowels, constipated, diarrhea, dysphagia, difficulty swallowing, hematemesis, melena, poor appetite, poor fluid intake, rectal bleeding, rectal pain, vomiting, others Genitourinary: denies: burning, dysuria, flank pain, frequency, hematuria, incontinence, penile discharge, penile sore, pain, testicle pain, testicle swelling, urgency, others Neurological: reports: headache; denies: dizziness, fainting, left sided numbness, left sided weakness, numbness, paresthesia, pre-existing deficit, right sided numbness, right sided weakness, seizure, speech problems, tingling, tremors, weakness, others Musculoskeletal: denies: back pain, gout, joint pain, joint swelling, muscle pain, muscle stiffness, neck pain, others Integumetry: denies: bruises, change in color, change in hair/nails, dryness, laceration, lesions, lumps, rash, wounds, others Allergic/Immunocompromised: denies: Difficulty Healing, Frequent Infections, Hives, Itching, others Hematologic/Lymphatic: denies: anemia, blood clots, easy bleeding, easy bruising, swollen glands, others Endocrine: denies: excessive hunger, excessive sweating, excessive thirst, excessive urination, flushing, intolerance to cold, intolerance to heat, unexplained weight gain, unexplained weight loss, others Psychiatric: denies: anxiety, bipolar disorder, depression, hopeless, panic disorder, schizophrenia, sleepless, suicidal, others All Other Systems: Reviewed and Negative Physical Exam General Appearance: No Apparent Distress, Normal HEENT: Normal ENT Inspection, Pharynx Normal, TMs Normal Neck: Full Range of Motion, Non-Tender, Normal, Normal Inspection Respiratory: Chest Non-Tender, Lungs Clear, No Accessory Muscle Use, No Respiratory Distress, Normal Breath Sounds Cardiovascular: No Edema, No JVD, No Murmur, No Gallop, Normal Peripheral Pulses, Tachycardia Breast Exam: Deferred Gastrointestinal: No Organomegaly, Non Tender, No Pulsatile Mass, Normal Bowel Sounds, Soft Genitalia: Other (Pan catheter in place) Pelvic: Deferred Rectal: Deferred Extremities: No calf tenderness, Normal capillary refill, Normal inspection, Normal range of motion, Non-tender, No pedal edema Musculoskeletal : Apperance: Normal Neurologic: Alert, can patcher II-XII nml as Tested, No Motor Deficits, Normal Affect, Normal Mood, No Sensory Deficits Cerebellar Function: Normal Reflexes: Normal Skin: Dry, Normal Color, Warm Lymphatic: No Adenopathy Was a procedure done? Was a procedure done?: No Differential Dx Considerations may include: UTI, viral syndrome, electrolyte removed, infectious etiology X-Ray, Labs, Meds, VS Vital Signs Date Time Temp Pulse Resp B/P (MAP) Pulse Ox O2 Delivery O2 Flow Rate FiO2 07/12/25 13:21 95 07/12/25 12:20 84 07/12/25 12:00 97.7 89 11 117/76 (90) 95 97.7 07/12/25 11:23 88 07/12/25 10:30 92 14 96 Room Air* 0 21 07/12/25 10:30 97.6 92 14 110/80 (90) 96 97.6 07/12/25 10:18 98.3 93 14 154/85 96 98.3 07/12/25 10:11 91 Lab Test 07/12/25 11:55 07/12/25 11:45 07/12/25 10:46 Range/Units Troponin I High Sensitivity 12 10 </=54 ng/L Urine Color Colorless Yellow Urine Clarity Turbid H Clear Urine pH 6.0 5.0-9.0 Urine Specific [place] 1.009 1.001-1.035 Urine Protein Trace H Negative Urine Ketones Negative Negative Urine Blood Trace H Negative /uL Urine Nitrite Negative Negative Urine Bilirubin Negative Negative Urine Urobilinogen Normal Negative mg/dL Urine Leukocyte Esterase 3+ Negative /uL Urine RBC 16 0 - 3 /hpf Urine WBC Clumps Present None Seen /hpf Urine Microscopic WBC 68 H 0-3 /HPF Urine Squamous Epithelial Cells Few <5 /hpf Urine Bacteria Few H None Seen /hpf Urine Yeast (Budding) Few None Seen /hpf Urine Glucose Normal Normal mg/dL White Blood Count 8.3 4.4-10.8 10^3/uL Red Blood Count 4.15 L 4.5-5.90 10^6/uL Hemoglobin 12.2 L 13.5-17.5 g/dL Hematocrit 36.5 L 41.0-53.0 % Mean Corpuscular Volume 88.0 80.0-100.0 fL Mean Corpuscular Hemoglobin 29.5 28.0-32.0 pg Mean Corpuscular Hemoglobin Concent 33.5 32.0-36.0 g/dL Red Cell Distribution Width 14.7 H 11.8-14.3 % Platelet Count 186 140-450 10^3/uL Mean Platelet Volume 8.8 6.9-10.8 fL Neutrophils (%) (Auto) 72.2 37.0-80.0 % Lymphocytes (%) (Auto) 19.2 10.0-50.0 % Monocytes (%) (Auto) 4.8 0.0-12.0 % Eosinophils (%) (Auto) 3.4 0.0-7.0 % Basophils (%) (Auto) 0.4 0.0-2.0 % Neutrophils # (Auto) 6.0 1.6-8.6 10 ^3/uL Lymphocytes # (Auto) 1.6 0.4-5.4 10 ^3/uL Monocytes # (Auto) 0.4 0-1.3 10 ^3/uL Eosinophils # (Auto) 0.3 0-0.8 10 ^3/uL Basophils # (Auto) 0 0-0.2 10 ^3/uL Nucleated Red Blood Cells 0.1 % Sodium Level 143 136-145 mmol/L Potassium Level 3.9 3.5-5.1 mmol/L Chloride Level 113 H 98-107 mmol/L Carbon Dioxide Level 17 L 20-31 mmol/L Anion Gap 13 5-15 Blood Urea Nitrogen 39 H 9-23 mg/dL Creatinine 2.42 H 0.700-1.30 mg/dL Glomerular Filtration Rate Calc 29 >90 mL/min BUN/Creatinine Ratio 16.1 10.0-20.0 Serum Glucose 94 74-106 mg/dL Calcium Level 8.9 8.7-10.4 mg/dL B-Type Natriuretic Peptide 16.40 0-100 pg/mL Time of 1ST Reevaluation: 12:15 Reevaluation 1ST: Improved Patient Education/Counseling: Diagnosis, Treatment Family Education/Counseling: No Family Present SEPSIS Sepsis Screen Date sepsis recognized/suspect: Jul 12, 2025 Time Sepsis recognized/suspect: 1022 Recent Procedure: No On Antibiotic Therapy: No Respiratory Rate >20: No Heart Rate >90: Yes Temp<36 C (96.8 F) or >38.3 C: No SBP <90 or MAP <65 mmHG: No New Acute Mental Status Change: No Is the patient on CPAP, BIPAP,: No Physician Orders Electrocardigram (07/12/25 10:14) Electrocardigram (07/12/25 11:14) Electrocardigram (07/12/25 13:14) Chest Portable (07/12/25 10:36) Troponin-I Hs (07/12/25 13:36) Vital Signs Date Time Temp Pulse Resp B/P (MAP) Pulse Ox O2 Delivery O2 Flow Rate FiO2 07/12/25 13:21 95 07/12/25 12:20 84 07/12/25 12:00 97.7 89 11 117/76 (90) 95 97.7 07/12/25 11:23 88 07/12/25 10:30 92 14 96 Room Air* 0 21 07/12/25 10:30 97.6 92 14 110/80 (90) 96 97.6 07/12/25 10:18 98.3 93 14 154/85 96 98.3 07/12/25 10:11 91 Laboratory Tests Test 07/12/25 10:46 White Blood Count 8.3 10^3/uL (4.4-10.8) Departure 1 Departure Time of Disposition: 13:35 (Patient is not septicPatient has a urinary tract infection worsening weakness. We will admit patient for further workup and expert consultation) Impression: Primary Impression: Complicated UTI (urinary tract infection) Additional Impression: Palpitations Disposition: ADMITTED INPATIENT Admit to: Med Surg Condition: Serious e-Prescriptions No Active Prescriptions or Reported Meds Critical Care Note Critical Care Time?: Yes Critical care comment: Concern for sepsis Authorized and Performed by: Daniel Sung MD Total critical care time: Approximately 38 minutes Due to a high probability of clinically significant, life threatening deterioration, the patient required my highest level of preparedness to intervene emergently and I personally spent this critical care time directly and personally managing the patient. This critical care time included obtaining a history; examining the patient; pulse oximetry; ordering and review of studies; arranging urgent treatment with development of a management plan; evaluation of patient's response to treatment; frequent reassessment; and, discussions with other providers. This critical care time was performed to assess and manage the high probability of imminent, life-threatening deterioration that could result in multi-organ failure. It was exclusive of separately billable procedures and treating other patients and teaching time. Please see my other sections and the rest of the note for further information on patient assessment and treatment. Stability Stability form required: No Heart Score Heart Score: Heart Score Response (Comments) Value History Moderate Suspicious 1 EKG Normal 0 Age >65 2 Risk Factors >3 or Hx ASHD 2 Troponin 1-2 x's Normal limit 1 Total 6 I personally scribed for DANIEL SUNG MD ([email or web address]) on 07/12/25 at 11:21. Electronically submitted by Twin Teixeira ([email or web address]). DANIEL SUNG MD Jul 12, 2025 11:21
[2025-07-12 12:04] LABS: Potassium 3.9 mmol/L (3.5-5.1); Sodium 143 mmol/L (136-145)
[2025-07-12 12:05] LABS: Anion Gap 13 (5-15); Calcium 8.9 mg/dL (8.7-10.4); Carbon Dioxide 17 mmol/L (20-31); Chloride 113 mmol/L (98-107)
[2025-07-12 12:10] LABS: BUN/Creatinine Ratio 16.1 (10.0-20.0); Blood Urea Nitrogen 39 mg/dL (9-23); Glucose 94 mg/dL (74-106)
[2025-07-12 13:19] LABS: Urine Budding Yeast FEW /hpf (None Seen); Urine Protein, UAD TRACE (Negative); Urine WBC Clumps PRESENT /hpf (None Seen)
[2025-07-12] MEDS: VANCOMYCIN 1GM/250ML KIT 250 ML IV ONE (14:23)
[2025-07-12] MEDS: SODIUM CHLORIDE 0.9% 1,000 ML IV ONE (14:23)
[2025-07-12] MEDS ORDERED: HYDROcodone-ACET 5/325MG TAB PO PRN (16:45)
[2025-07-12] MEDS ORDERED: NITROGLYCERIN 0.4 MG SL TAB SL PRN (16:45)
[2025-07-12] MEDS ORDERED: NIFE1TAB31 (16:45)
[2025-07-12] MEDS ORDERED: ACETAMINOPHEN 325 MG TAB PO PRN (16:45)
--- NOTE | 2025-07-12 16:48 | DVHHP2 ---
History of Present Illness Reason for Visit: Palpitations History of Present Illness Felice Osuna is a 65-year-old male with past medical history of spinal stenosis, BPH, lithotripsy, failed left adrenal gland removal, paraplegia, CKD, right femur surgery, hypertension and UTI who presents to the ED with palpitations and nausea that started this morning. Patient reports that he has been taking antibiotics and completed the course for his UTI but despite that his urine is still cloudy and foul-smelling. Patient reports that every time he has a UTI he gets palpitations. Patient states that this morning his headache was 3/10 but now upon examination states that it is 0. Patient reports that he has not eaten for the last 24 hours and last time he had a meal was 4:30 p.m. yesterday. Patient reports that he was prescribed Keflex and completed the 7 days' course. Patient reports that the last time he ambulated was in . Patient reports that he lives at home with his brother. Patient denies any recent trauma or injury, recent sick contacts, recent travels, recent ingestion of spoiled food, chest pain, shortness of breath, fever, chills, lightheadedness, weakness, dizziness, abdominal pain, vomiting, or diarrhea. Cardiovascular: HTN Renal/: Chronic renal insuff, UTI Past Medical History Paraplegia BPH Spinal stenosis Past Surgical History: Other (Right femur surgery, lithotripsy, and failed left adrenal gland removal) Domestic Violence: Neg Review of Systems Cardiovascular: Palpitations Allergies: Coded Allergies: Ciprofloxacin (Verified Allergy, Unknown, 07/12/25) Iodine (Verified Allergy, Unknown, 05/01/25) Exam Vital Signs Vital Signs Date Time Temp Pulse Resp B/P (MAP) Pulse Ox O2 Delivery O2 Flow Rate FiO2 07/12/25 13:21 95 07/12/25 12:00 97.7 11 117/76 (90) 95 97.7 07/12/25 10:30 Room Air* 0 21 General Appearance: Alert, Oriented X3, Cooperative, No acute distress HEENT: Atraumatic, PERRLA, EOMI, Mucous membr. moist/pink Respiratory: Clear to auscultation, Normal air movement Cardiovascular: Regular rate, Normal S1, Normal S2, No murmurs Abdominal: Normal bowel sounds, Soft Extremities: No edema Neuro: Normal speech, Sensation intact Psych/Mental Status: Mental status NL, Mood NL Labs/Xrays Labs Test 07/12/25 13:57 07/12/25 11:45 07/12/25 10:46 Range/Units Lactic Acid Level 0.7 0.4-2.0 mmol/L Troponin I High Sensitivity 16 </=54 ng/L Urine Color Colorless Yellow Urine Clarity Turbid H Clear Urine pH 6.0 5.0-9.0 Urine Specific [place] 1.009 1.001-1.035 Urine Protein Trace H Negative Urine Ketones Negative Negative Urine Blood Trace H Negative /uL Urine Nitrite Negative Negative Urine Bilirubin Negative Negative Urine Urobilinogen Normal Negative mg/dL Urine Leukocyte Esterase 3+ Negative /uL Urine RBC 16 0 - 3 /hpf Urine WBC Clumps Present None Seen /hpf Urine Microscopic WBC 68 H 0-3 /HPF Urine Squamous Epithelial Cells Few <5 /hpf Urine Bacteria Few H None Seen /hpf Urine Yeast (Budding) Few None Seen /hpf Urine Glucose Normal Normal mg/dL White Blood Count 8.3 4.4-10.8 10^3/uL Red Blood Count 4.15 L 4.5-5.90 10^6/uL Hemoglobin 12.2 L 13.5-17.5 g/dL Hematocrit 36.5 L 41.0-53.0 % Mean Corpuscular Volume 88.0 80.0-100.0 fL Mean Corpuscular Hemoglobin 29.5 28.0-32.0 pg Mean Corpuscular Hemoglobin Concent 33.5 32.0-36.0 g/dL Red Cell Distribution Width 14.7 H 11.8-14.3 % Platelet Count 186 140-450 10^3/uL Mean Platelet Volume 8.8 6.9-10.8 fL Neutrophils (%) (Auto) 72.2 37.0-80.0 % Lymphocytes (%) (Auto) 19.2 10.0-50.0 % Monocytes (%) (Auto) 4.8 0.0-12.0 % Eosinophils (%) (Auto) 3.4 0.0-7.0 % Basophils (%) (Auto) 0.4 0.0-2.0 % Neutrophils # (Auto) 6.0 1.6-8.6 10 ^3/uL Lymphocytes # (Auto) 1.6 0.4-5.4 10 ^3/uL Monocytes # (Auto) 0.4 0-1.3 10 ^3/uL Eosinophils # (Auto) 0.3 0-0.8 10 ^3/uL Basophils # (Auto) 0 0-0.2 10 ^3/uL Nucleated Red Blood Cells 0.1 % Sodium Level 143 136-145 mmol/L Potassium Level 3.9 3.5-5.1 mmol/L Chloride Level 113 H 98-107 mmol/L Carbon Dioxide Level 17 L 20-31 mmol/L Anion Gap 13 5-15 Blood Urea Nitrogen 39 H 9-23 mg/dL Creatinine 2.42 H 0.700-1.30 mg/dL Glomerular Filtration Rate Calc 29 >90 mL/min BUN/Creatinine Ratio 16.1 10.0-20.0 Serum Glucose 94 74-106 mg/dL Calcium Level 8.9 8.7-10.4 mg/dL B-Type Natriuretic Peptide 16.40 0-100 pg/mL CHEST RADIOGRAPH Indication: chest pain Technique: Single frontal view of the chest was obtained COMPARISON: XY CHEST PORTABLE on DOS: 05/01/25, XR CHEST 1 VIEW on DOS: 04/08/25 FINDINGS: Lines and Tubes: None Lungs: Clear Pleura: No effusion. No pneumothorax. Cardiomediastinal contours: Unremarkable Bones: Unremarkable IMPRESSION: No acute disease. SEPSIS Sepsis Screen Date sepsis recognized/suspect: Jul 12, 2025 Time Sepsis recognized/suspect: 1030 Recent Procedure: No On Antibiotic Therapy: No Respiratory Rate >20: No Heart Rate >90: Yes Temp<36 C (96.8 F) or >38.3 C: No SBP <90 or MAP <65 mmHG: No New Acute Mental Status Change: No Is the patient on CPAP, BIPAP,: No Physician Orders Electrocardigram (07/12/25 10:14) Electrocardigram (07/12/25 11:14) Electrocardigram (07/12/25 13:14) Chest Portable (07/12/25 10:36) Blood Culture (07/12/25 13:33) Vital Signs Date Time Temp Pulse Resp B/P (MAP) Pulse Ox O2 Delivery O2 Flow Rate FiO2 07/12/25 13:21 95 07/12/25 12:20 84 07/12/25 12:00 97.7 89 11 117/76 (90) 95 97.7 07/12/25 11:23 88 07/12/25 10:30 92 14 96 Room Air* 0 21 07/12/25 10:30 97.6 92 14 110/80 (90) 96 97.6 07/12/25 10:18 98.3 93 14 154/85 96 98.3 07/12/25 10:11 91 Laboratory Tests Test 07/12/25 10:46 07/12/25 13:57 White Blood Count 8.3 10^3/uL (4.4-10.8) Lactic Acid Level 0.7 mmol/L (0.4-2.0) Medications Medications Dose Ordered Sig/Chucho Route Start Time Stop Time Status Last Admin Dose Admin Sodium Chloride 1,000 ml @ 1,000 mls/hr Q1H ONCE IV 07/12/25 13:45 07/12/25 14:44 DC 07/12/25 14:23 1,000 MLS/HR Vancomycin HCl 250 ml @ 250 mls/hr ONCE ONCE IV 07/12/25 13:45 07/12/25 14:44 DC 07/12/25 14:23 250 MLS/HR Assessment/Plan Assessment/Plan Assessment Palpitations Obesity History of hypertension History of UTI History of paraplegia History of CKD History of right femur surgery History of BPH History of lithotripsy History of left adrenal gland removal- failed History of spinal stenosis Plan Admit to tele Pan catheter exchanged in ED Aspirin + statin Antiemetics Pain management NS 1 L given ED Vancomycin given ED IV antibiotics-ceftriaxone Troponin noted negative x3 BNP Chest x-ray UA Hemoglobin A1c Lipid panel Free T4 TSH UDS Urine culture Echo ordered Diet Home medications reconciled DVT prophylaxis-SCDs PUD prophylaxis-PPIs Discussed plan of care with patient and nurse Counseled patient with lifestyle modifications, diet, and exercise Plan discussed with: Patient Date of Service: Jul 12, 2025 Billing Provider: BALWINDER MENA Common Visit Codes: 65983-[id number] INP/OBS CARE (HIGH) Secondary Visit Codes: [id number] COUNSELING IND BALWINDER MENA Jul 12, 2025 16:48
[2025-07-12] MEDS ORDERED: MORPHINE SULFATE 4 MG/ML SYR/VIAL IV PRN ×2 (17:00)
[2025-07-12 17:07] LABS: Triglycerides 64 mg/dL (< 150)
[2025-07-12 17:09] LABS: Cholesterol 104 mg/dL (< 200)
[2025-07-12 17:10] LABS: HDL Cholesterol 34 mg/dL (40-59)
[2025-07-12 17:54] LABS: Amphetamine Screen, Urine Neg (NEGATIVE); Barbiturate Scree,Urine Neg (NEGATIVE); Benzodiazephine Screen, Urine Neg (NEGATIVE); Cannabinoid Screen, Urine Neg (NEGATIVE); Cocaine Screen, Urine Neg (NEGATIVE); Opiate Scree,Urine Neg (NEGATIVE); Phencyclidine Screen, Urine Neg (NEGATIVE)
--- NOTE | 2025-07-12 18:31 | DVHINCON2 ---
Date of service: Jul 12, 2025 Referring Physician Nafisa Mckeon, Nurse Practitioner Reason for Consultation Acute kidney Injury History of Present Illness Patient is 65 y/o male with PMH of HTN, nephrolithiasis, CKD, BPH, urinary retention, indwelling Pan catheter for over a year and recurrent UTI is admitted for palpitation, headaches and nausea. On admission patient found to have elevated BUN and creatinine, nephrology is consulted for FERNANDO Past Medical History HTN, CKD Personal history of Nephrolithiasis Right femur fracture Recurrent UTI BPH Indwelling Pan catheter Past Surgical History Right femur surgery 2023 Allergies: Coded Allergies: Ciprofloxacin (Verified Allergy, Unknown, 07/12/25) Iodine (Verified Allergy, Unknown, 05/01/25) Home Meds Reported Medications Nifedipine (Nifedipine Er) 30 Mg Tab 07/12/25 Current Medications Current Medications Medications (Trade) Dose Ordered Sig/Chucho Route PRN Reason Start Time Stop Time Status Last Admin Acetaminophen/ Hydrocodone Bitart ([place] 5/325MG Tab) 1 tab Q4HP PRN PO MODERATE PAIN (4-6 PAIN SCALE) 07/12/25 16:45 Ondansetron HCl (Zofran) 4 mg Q4HP PRN IV NAUSEA / VOMITING 07/12/25 16:45 Acetaminophen (Tylenol Tablet) 650 mg Q6HP PRN PO PAIN SCALE 1-3 OR TEMP>100.4 07/12/25 16:45 Morphine Sulfate 2 mg Q4HPRN PRN IV SEVERE PAIN (7-10 PAIN SCALE) 07/12/25 17:00 Nitroglycerin (Ntrostat Sublingual) 0.4 mg Q5MINP PRN SL FOR CHEST PAIN 07/12/25 16:45 Morphine Sulfate 2 mg Q30M PRN IV FOR CHEST PAIN 07/12/25 17:00 Ceftriaxone Sodium 50 ml @ 100 mls/hr DAILY@09 IV 07/12/25 16:45 07/13/25 09:45 Nifedipine (Procardia Xl (Time-Release)) 30 mg DAILY PO 07/13/25 10:00 07/13/25 09:45 Aspirin 81 mg DAILY PO 07/13/25 10:00 07/13/25 09:45 Atorvastatin Calcium (Lipitor) 40 mg HS PO 07/12/25 22:00 Sodium Bicarbonate 50 ml/ Sodium Chloride 1,050 ml @ 120 mls/hr Q8H45M IV 07/12/25 18:45 07/12/25 19:12 Family History: FH: dementia G8 FATHER FH: stroke G8 MOTHER Review of Systems All 12 item review of systems reviewed with the patient nonsignificant except what is mentioned in the history of present illness H&P Exam Vital Signs/I&O Vital Sign Date Time Temp Pulse Resp B/P (MAP) Pulse Ox O2 Delivery O2 Flow Rate FiO2 07/13/25 09:45 135/80 07/13/25 09:00 97.6 60 19 98 97.6 07/13/25 04:36 Room Air* 0 21 Intake and Output 07/12/25 07/13/25 19:00 07:00 Intake Total 1300 ml Balance 1300 ml Intake IV Total 1300 ml Physical Exam Patient lying comfortably in bed appeared in no acute distress Lungs clear to auscultation bilaterally Cardiac exam irregular rate and rhythm GI soft nontender Pan catheter Extremities no clubbing cyanosis or edema Neuro nonfocal Labs/Diagnostic Data Labs/Diagnostic Data Laboratory Tests Test 07/13/25 05:06 07/12/25 18:26 07/12/25 13:57 07/12/25 11:55 Range/Units White Blood Count 9.5 4.4-10.8 10^3/uL Red Blood Count 3.88 L 4.5-5.90 10^6/uL Hemoglobin 11.4 L 13.5-17.5 g/dL Hematocrit 34.0 L 41.0-53.0 % Mean Corpuscular Volume 87.6 80.0-100.0 fL Mean Corpuscular Hemoglobin 29.4 28.0-32.0 pg Mean Corpuscular Hemoglobin Concent 33.6 32.0-36.0 g/dL Red Cell Distribution Width 14.6 H 11.8-14.3 % Platelet Count 180 140-450 10^3/uL Mean Platelet Volume 9.0 6.9-10.8 fL Neutrophils (%) (Auto) 76.9 37.0-80.0 % Lymphocytes (%) (Auto) 12.8 10.0-50.0 % Monocytes (%) (Auto) 6.0 0.0-12.0 % Eosinophils (%) (Auto) 4.1 0.0-7.0 % Basophils (%) (Auto) 0.2 0.0-2.0 % Neutrophils # (Auto) 7.3 1.6-8.6 10 ^3/uL Lymphocytes # (Auto) 1.2 0.4-5.4 10 ^3/uL Monocytes # (Auto) 0.6 0-1.3 10 ^3/uL Eosinophils # (Auto) 0.4 0-0.8 10 ^3/uL Basophils # (Auto) 0 0-0.2 10 ^3/uL Nucleated Red Blood Cells 0.0 % Sodium Level 143 136-145 mmol/L Potassium Level 3.8 3.5-5.1 mmol/L Chloride Level 112 H 98-107 mmol/L Carbon Dioxide Level 20 20-31 mmol/L Anion Gap 11 5-15 Blood Urea Nitrogen 31 H 9-23 mg/dL Creatinine 2.05 H 0.700-1.30 mg/dL Glomerular Filtration Rate Calc 35 >90 mL/min BUN/Creatinine Ratio 15.1 10.0-20.0 Serum Glucose 90 74-106 mg/dL Calcium Level 8.4 L 8.7-10.4 mg/dL Total Bilirubin 0.4 0.2-1.0 mg/dL Aspartate Amino Transferase (AST) 10 L 13-40 U/L Alanine Aminotransferase (ALT) < 9 7-40 U/L Alkaline Phosphatase 94 46-116 U/L Total Protein 5.9 5.7-8.2 g/dL Albumin 3.4 3.2-4.8 g/dL Urine Creatinine 30.15 30.0-125.0 mg/dL Urine Protein/Creatinine Ratio 1.54 Urine Sodium 92 40-220 mmol/L Urine Total Protein 46.5 H 1-14 mg/dL Hemoglobin A1c 5.1 <5.7 % A1C Lactic Acid Level 0.7 0.4-2.0 mmol/L Troponin I High Sensitivity 16 12 </=54 ng/L Triglycerides Level 64 < 150 mg/dL Cholesterol Level 104 < 200 mg/dL LDL Cholesterol 63 < 100 mg/dL HDL Cholesterol 34 L 40-59 mg/dL Thyroid Stimulating Hormone (TSH) 0.01 L 0.55-4.78 uIU/mL Free Thyroxine (T4) Calculated 1.67 0.89-1.76 ng/dL Test 07/12/25 11:45 07/12/25 10:46 Range/Units Urine Color Colorless Yellow Urine Clarity Turbid H Clear Urine pH 6.0 5.0-9.0 Urine Specific [place] 1.009 1.001-1.035 Urine Protein Trace H Negative Urine Ketones Negative Negative Urine Blood Trace H Negative /uL Urine Nitrite Negative Negative Urine Bilirubin Negative Negative Urine Urobilinogen Normal Negative mg/dL Urine Leukocyte Esterase 3+ Negative /uL Urine RBC 16 0 - 3 /hpf Urine WBC Clumps Present None Seen /hpf Urine Microscopic WBC 68 H 0-3 /HPF Urine Squamous Epithelial Cells Few <5 /hpf Urine Bacteria Few H None Seen /hpf Urine Yeast (Budding) Few None Seen /hpf Urine Glucose Normal Normal mg/dL Urine Opiates Screen Neg NEGATIVE Urine Fentanyl Screen Neg NEGATIVE Urine Barbiturates Screen Neg NEGATIVE Urine Phencyclidine Screen Neg NEGATIVE Urine Amphetamines Screen Neg NEGATIVE Urine Benzodiazepines Screen Neg NEGATIVE Urine Cocaine Screen Neg NEGATIVE Urine Cannabinoids Screen Neg NEGATIVE White Blood Count 8.3 4.4-10.8 10^3/uL Red Blood Count 4.15 L 4.5-5.90 10^6/uL Hemoglobin 12.2 L 13.5-17.5 g/dL Hematocrit 36.5 L 41.0-53.0 % Mean Corpuscular Volume 88.0 80.0-100.0 fL Mean Corpuscular Hemoglobin 29.5 28.0-32.0 pg Mean Corpuscular Hemoglobin Concent 33.5 32.0-36.0 g/dL Red Cell Distribution Width 14.7 H 11.8-14.3 % Platelet Count 186 140-450 10^3/uL Mean Platelet Volume 8.8 6.9-10.8 fL Neutrophils (%) (Auto) 72.2 37.0-80.0 % Lymphocytes (%) (Auto) 19.2 10.0-50.0 % Monocytes (%) (Auto) 4.8 0.0-12.0 % Eosinophils (%) (Auto) 3.4 0.0-7.0 % Basophils (%) (Auto) 0.4 0.0-2.0 % Neutrophils # (Auto) 6.0 1.6-8.6 10 ^3/uL Lymphocytes # (Auto) 1.6 0.4-5.4 10 ^3/uL Monocytes # (Auto) 0.4 0-1.3 10 ^3/uL Eosinophils # (Auto) 0.3 0-0.8 10 ^3/uL Basophils # (Auto) 0 0-0.2 10 ^3/uL Nucleated Red Blood Cells 0.1 % Sodium Level 143 136-145 mmol/L Potassium Level 3.9 3.5-5.1 mmol/L Chloride Level 113 H 98-107 mmol/L Carbon Dioxide Level 17 L 20-31 mmol/L Anion Gap 13 5-15 Blood Urea Nitrogen 39 H 9-23 mg/dL Creatinine 2.42 H 0.700-1.30 mg/dL Glomerular Filtration Rate Calc 29 >90 mL/min BUN/Creatinine Ratio 16.1 10.0-20.0 Serum Glucose 94 74-106 mg/dL Uric Acid 5.5 3.7-9.2 mg/dL Calcium Level 8.9 8.7-10.4 mg/dL Phosphorus Level 3.1 2.4-5.1 mg/dL Magnesium Level 2.2 1.6-2.6 mg/dL Troponin I High Sensitivity 10 </=54 ng/L B-Type Natriuretic Peptide 16.40 0-100 pg/mL Vitamin D 25-Hydroxy 11.2 L 30.0-100 ng/mL Parathyroid Hormone (Intact) 109.6 H 18.4-80.1 pg/mL Assessment FERNANDO superimposed on CKD secondary to hemodynamic mediated BPH with indwelling urinary catheter Urinary retention Recurrent UTI Personal history of Nephrolithiasis new onset A fib Metabolic acidosis REC: Closely monitor fluids and lytes Avoid nephrotoxins Strict I&O's Check urine lytes and protein check kidney US IVF 1/2 Ns with sodium bicarb 50 mEq/L @ 125 cc/hr IV abx Cardiology consult Will continue to follow Patient seen and examined by myself. I discussed my plan of care with the patient and primary nurse at the bedside I would like to thank Nafisa for the consult, will follow Total care time 35 minutes Plan discussed with: Patient MAR GUAMAN MD Jul 12, 2025 18:31
[2025-07-12] MEDS: SODIUM BICARB 50mEq/50ml Vial 50 ML in SOD CHL 0.45% 1,000 ML IV SCH (19:12)
--- NOTE | 2025-07-12 19:12 | ECG ---
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
[2025-07-12 19:26] LABS: Uric Acid 5.5 mg/dL (3.7-9.2)
[2025-07-12 19:26] LABS: Protein, Urine 46.5 mg/dL (1-14)
[2025-07-12 19:28] LABS: Magnesium 2.2 mg/dL (1.6-2.6)
--- NOTE | 2025-07-12 19:42 | DVH ---
CLINICAL HISTORY: kait TECHNIQUE: Complete ultrasound exam of the kidneys and bladder was performed. COMPARISON: None FINDINGS: The right kidney has normal echogenicity and measures 12.9 cm. There is a 6.3 cm cyst with no evidenc e for stone. There is no hydronephrosis. The left kidney has normal echogenicity and measures 12.6 cm. There is a 3.8 cm cyst with no evidenc e for stone. There is no hydronephrosis. The bladder is not imaged due to decompression by Pan catheter. IMPRESSION: Echogenic kidneys, compatible medical renal disease. No hydronephrosis.
[2025-07-12] MEDS: ATORVASTATIN 20 MG TAB PO SCH (22:00)
[2025-07-13] VITALS (7 sets, daily range): BP systolic 107–135; BP diastolic 67–80; PULSE 56–78; RESP 15–19; TEMP 97.6–99.3; O2SAT 96–98
[2025-07-13 06:03] LABS: Albumin 3.4 g/dL (3.2-4.8); Alkaline Phosphatase 94 U/L (46-116); Anion Gap 11 (5-15); BUN/Creatinine Ratio 15.1 (10.0-20.0); Bilirubin, Total 0.4 mg/dL (0.2-1.0); Carbon Dioxide 20 mmol/L (20-31); Glucose 90 mg/dL (74-106); Potassium 3.8 mmol/L (3.5-5.1); Sodium 143 mmol/L (136-145); Total Protein 5.9 g/dL (5.7-8.2)
[2025-07-13 06:13] LABS: Hematocrit 34.0 % (41.0-53.0); Hemoglobin 11.4 g/dL (13.5-17.5); Mean Corpuscular Hemoglobin 29.4 pg (28.0-32.0); Mean Corpuscular Volume 87.6 fL (80.0-100.0); Nucleated Red Blood Cells % 0.0 %
[2025-07-13 06:15] LABS: Alanine Aminotransferase < 9 U/L (7-40); Blood Urea Nitrogen 31 mg/dL (9-23); Calcium 8.4 mg/dL (8.7-10.4); Chloride 112 mmol/L (98-107)
--- NOTE | 2025-07-13 10:41 | DVHPN2 ---
Progress Note Date Seen: Jul 13, 2025 Medical Necessity Reason Pt with a Central, PICC or Fol: No Subjective Review of Systems: CVS:Abnormal Other Systems: Patient seen and examined by myself today in follow-up Objective vital signs Vital Sign Date Time Temp Pulse Resp B/P (MAP) Pulse Ox O2 Delivery O2 Flow Rate FiO2 07/13/25 09:45 135/80 07/13/25 09:00 97.6 60 19 98 97.6 07/13/25 04:36 Room Air* 0 21 Total Intake and Output 07/12/25 07/12/25 07/13/25 15:00 23:00 07:00 Intake Total 1300 ml Balance 1300 ml medications Current Medications Medications Dose Ordered Sig/Chucho Route Start Time Stop Time Status Last Admin Dose Admin Acetaminophen/ Hydrocodone Bitart 1 tab Q4HP PRN PO 07/12/25 16:45 Ondansetron HCl 4 mg Q4HP PRN IV 07/12/25 16:45 Acetaminophen 650 mg Q6HP PRN PO 07/12/25 16:45 Morphine Sulfate 2 mg Q4HPRN PRN IV 07/12/25 17:00 Nitroglycerin 0.4 mg Q5MINP PRN SL 07/12/25 16:45 Morphine Sulfate 2 mg Q30M PRN IV 07/12/25 17:00 Ceftriaxone Sodium 50 ml @ 100 mls/hr DAILY@09 IV 07/12/25 16:45 07/13/25 09:45 Nifedipine 30 mg DAILY PO 07/13/25 10:00 07/13/25 09:45 Aspirin 81 mg DAILY PO 07/13/25 10:00 07/13/25 09:45 Atorvastatin Calcium 40 mg HS PO 07/12/25 22:00 Sodium Bicarbonate 50 ml/ Sodium Chloride 1,050 ml @ 120 mls/hr Q8H45M IV 07/12/25 18:45 07/12/25 19:12 Examination: LUNGS:Normal, CVS:Normal, MSK:Normal laboratory and microbiology Laboratory Tests 07/13/25 05:06 Test 07/13/25 05:06 Range/Units Serum Glucose 90 74-106 mg/dL Problem List/Assessment/Plan Problem List/Assessment/Plan FERNANDO superimposed on 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 q.week Cardiology consult Will continue to follow Critical care time 25 minutes Plan discussed with: Patient My Orders My Orders Orders - MAR GUAMAN MD Procedure Category Date Status Time Kidney US 07/12/25 Resulted 18:26 Hepatitis C Antibody LAB 07/12/25 In Process 18:26 Hepatitis B Surface LAB 07/12/25 In Process Antigen 18:26 Sod Chl 0.45% PHA 07/12/25 In Process (Sodi... W/Sodium 18:45 Renal DIET 07/13/25 Transmitted Standard(2gna,3gk,Lopho) Lunch Communication Order ORDERS 07/13/25 Transmitted 10:33 MAR GUAMAN MD Jul 13, 2025 10:41
[2025-07-13 11:36] LABS: Hepatitis B Surface Antigen Negative (Negative)
[2025-07-13 11:58] LABS: Hepatitis C Antibody Negative (Negative)
--- NOTE | 2025-07-13 12:42 | DVHPN2 ---
Reviewed: Care Plan, H&P, Labs, Medications, Previous Orders, Radiology Changes from previous H/P or p: No Changes Cardiovascular: Palpitations Objective Vitals Vital Signs Date Time Temp Pulse Resp B/P (MAP) Pulse Ox O2 Delivery O2 Flow Rate FiO2 07/13/25 09:45 135/80 07/13/25 09:00 97.6 60 19 98 97.6 07/13/25 04:36 Room Air* 0 21 Intake/Output Intake and Output 07/13/25 07:00 Intake Total 1300 ml Balance 1300 ml Intake IV Total 1300 ml Medications Current Medications Medications Dose Ordered Sig/Chucho Route Start Time Stop Time Status Last Admin Dose Admin Acetaminophen/ Hydrocodone Bitart 1 tab Q4HP PRN PO 07/12/25 16:45 Ondansetron HCl 4 mg Q4HP PRN IV 07/12/25 16:45 Acetaminophen 650 mg Q6HP PRN PO 07/12/25 16:45 Morphine Sulfate 2 mg Q4HPRN PRN IV 07/12/25 17:00 Nitroglycerin 0.4 mg Q5MINP PRN SL 07/12/25 16:45 Morphine Sulfate 2 mg Q30M PRN IV 07/12/25 17:00 Ceftriaxone Sodium 50 ml @ 100 mls/hr DAILY@09 IV 07/12/25 16:45 07/13/25 09:45 100 MLS/HR Nifedipine 30 mg DAILY PO 07/13/25 10:00 07/13/25 09:45 30 MG Aspirin 81 mg DAILY PO 07/13/25 10:00 07/13/25 09:45 81 MG Atorvastatin Calcium 40 mg HS PO 07/12/25 22:00 Sodium Bicarbonate 50 ml/ Sodium Chloride 1,050 ml @ 120 mls/hr Q8H45M IV 07/12/25 18:45 07/12/25 19:12 120 MLS/HR Ergocalciferol 50,000 unit Q7D PO 07/13/25 10:45 Laboratory Results Laboratory Tests 07/13/25 05:06 Chemistry Test 07/13/25 05:06 Albumin 3.4 g/dL (3.2-4.8) Calcium Level 8.4 mg/dL (8.7-10.4) L Total Protein 5.9 g/dL (5.7-8.2) Lipid panel Test 07/12/25 13:57 Cholesterol Level 104 mg/dL (< 200) HDL Cholesterol 34 mg/dL (40-59) L Triglycerides Level 64 mg/dL (< 150) LFT Test 07/13/25 05:06 Alanine Aminotransferase (ALT) < 9 U/L (7-40) Alkaline Phosphatase 94 U/L (46-116) Aspartate Amino Transferase (AST) 10 U/L (13-40) L Total Bilirubin 0.4 mg/dL (0.2-1.0) HgA1c, TSH Test 07/12/25 13:57 Hemoglobin A1c 5.1 % A1C (<5.7) Thyroid Stimulating Hormone (TSH) 0.01 uIU/mL (0.55-4.78) L Urinalysis Test 07/12/25 11:45 07/12/25 18:26 Urine Color Colorless (Yellow) Urine Clarity Turbid (Clear) H Urine pH 6.0 (5.0-9.0) Urine Specific [place] 1.009 (1.001-1.035) Urine Protein Trace (Negative) H Urine Ketones Negative (Negative) Urine Blood Trace /uL (Negative) H Urine Nitrite Negative (Negative) Urine Bilirubin Negative (Negative) Urine Urobilinogen Normal mg/dL (Negative) Urine Leukocyte Esterase 3+ /uL (Negative) Urine RBC 16 /hpf (0 - 3) Urine WBC Clumps Present /hpf (None Seen) Urine Microscopic WBC 68 /HPF (0-3) H Urine Squamous Epithelial Cells Few /hpf (<5) Urine Bacteria Few /hpf (None Seen) H Urine Yeast (Budding) Few /hpf (None Seen) Urine Glucose Normal mg/dL (Normal) Urine Creatinine 30.15 mg/dL (30.0-125.0) Urine Protein/Creatinine Ratio 1.54 Urine Sodium 92 mmol/L (40-220) Urine Total Protein 46.5 mg/dL (1-14) H Microbiology Microbiology Date/Time Source Procedure Growth Status 07/12/25 13:40 Blood Blood Culture - Preliminary Resulted 07/12/25 11:45 Voided Urine Urine Culture - Preliminary Resulted Labs and/or images reviewed: Labs reviewed by me, Image(s) reviewed by me Assessment/Plan Assessment/Plan Palpitations consult for Cardiology Dr. Shaista Ortiz Obesity Hypotension Recurrent UTIs blood cultures urine cultures Rocephin Paraplegia FERNANDO superimposed on CKD Right femur surgery BPH History of lithotripsy Left adrenal gland failed removal Spinal spinal stenosis Time Spent 70 minutes Advanced care planning time 20 minutes Patient is full code Plan discussed with: Patient Date of Service: Jul 13, 2025 Billing Provider: CHRIS ZEE MD Common Visit Codes: [id number] CARE 30-74 MIN CHRIS ZEE MD Jul 13, 2025 12:42
[2025-07-13] MEDS ORDERED: OPTISON 3ml Vial for INJ IV ONE (13:15)
[2025-07-13] MEDS: ERGOCALCIFEROL 50,000 UNIT(1.25MG) CAP PO SCH (13:55)
[2025-07-13] MEDS ORDERED: VANCOMYCIN PER PHARMACY 0 MG IV SCH (14:15)
--- NOTE | 2025-07-13 15:44 | DVHINCON2 ---
Date Seen: Jul 13, 2025 Referring Physician MD Cj Reason for Consultation Palpitations History of Present Illness This is a 65-year-old male patient who presents to emergency room with chief complaint of palpitations. The patient reports that symptoms began approximately 30 minutes prior to emergency room arrival. He also reports foul- smelling urine, cloudy urine, and fatigue at home a few days prior to emergency room arrival. Initial twelve lead electrocardiogram done at this facility revealed normal sinus rhythm with artifact in every lead. Initial troponin level of 10ng/L with flat trend thereafter. The patient denies any chest pain, palpitations, shortness of breath, or dizziness at time of assessment. Significant past medical history includes hypertension, chronic kidney disease, chronic Pan, spinal stenosis, and paraplegia. He denies any previous cardiac history. Past Medical History Past medical history reviewed. No other significant than mentioned above. Past Surgical History Lithotripsy Family History: FH: dementia G8 FATHER FH: stroke G8 MOTHER Family History Family history reviewed. Social History Denies the use of tobacco, alcohol or illicit drugs. Allergies: Coded Allergies: Ciprofloxacin (Verified Allergy, Unknown, 07/12/25) Iodine (Verified Allergy, Unknown, 05/01/25) Home Meds Reported Medications Nifedipine (Nifedipine Er) 30 Mg Tab 07/12/25 Home Meds Home medications reviewed. Current Medications Current Medications Medications (Trade) Dose Ordered Sig/Chucho Route PRN Reason Start Time Stop Time Status Last Admin Acetaminophen/ Hydrocodone Bitart ([place] 5/325MG Tab) 1 tab Q4HP PRN PO MODERATE PAIN (4-6 PAIN SCALE) 07/12/25 16:45 Ondansetron HCl (Zofran) 4 mg Q4HP PRN IV NAUSEA / VOMITING 07/12/25 16:45 Acetaminophen (Tylenol Tablet) 650 mg Q6HP PRN PO PAIN SCALE 1-3 OR TEMP>100.4 07/12/25 16:45 Morphine Sulfate 2 mg Q4HPRN PRN IV SEVERE PAIN (7-10 PAIN SCALE) 07/12/25 17:00 Nitroglycerin (Ntrostat Sublingual) 0.4 mg Q5MINP PRN SL FOR CHEST PAIN 07/12/25 16:45 Morphine Sulfate 2 mg Q30M PRN IV FOR CHEST PAIN 07/12/25 17:00 Ceftriaxone Sodium 50 ml @ 100 mls/hr DAILY@09 IV 07/12/25 16:45 07/13/25 09:45 Nifedipine (Procardia Xl (Time-Release)) 30 mg DAILY PO 07/13/25 10:00 07/13/25 09:45 Aspirin 81 mg DAILY PO 07/13/25 10:00 07/13/25 09:45 Atorvastatin Calcium (Lipitor) 40 mg HS PO 07/12/25 22:00 Sodium Bicarbonate 50 ml/ Sodium Chloride 1,050 ml @ 120 mls/hr Q8H45M IV 07/12/25 18:45 07/13/25 15:41 Ergocalciferol (Vitamin D 50,000 Unit) 50,000 unit Q7D PO 07/13/25 10:45 07/13/25 13:55 Vancomycin HCl 0 ml @ 0 mls/hr UD IV 07/13/25 14:15 Review of Systems Constitutional: No symptom reported Ears, Nose, & Throat: No symptom reported Eyes: No symptom reported Neurological: No symptoms reported Pulmonary/Respiratory: No symptoms reported Cardiovascular: Palpitations Gastrointestinal: No symptom reported Genitourinary: No symptom reported Musculoskeletal: No symptom reported Skin: No symptom reported Psychiatric: No symptom reported Endocrine: No symptom reported Hematologic/Lymphatic: No symptom reported Vital Signs Vital Signs Date Time Temp Pulse Resp B/P (MAP) Pulse Ox O2 Delivery O2 Flow Rate FiO2 07/13/25 13:00 97.9 59 19 116/76 (89) 98 97.9 07/13/25 04:36 Room Air* 0 21 Physical Exam General Appearance: Cooperative. Obese Pulmonary/Respiratory: Clear, bilateral breaths sounds. Cardiovascular/Chest: Regular rate and rhythm. Peripheral Pulses: 2+ Radial (R). 2+ Radial (L). 2+ Pedal (R). 2+ Pedal (L) Abdominal Exam: Normal bowel sounds. Ankle Exam: Negative ankle edema Lower extremities: Negative lower extremity edema Neuro/Mental Status: A/OX4, coherent. Thoughts/Psych: Normal thought pattern. Appropriate mood and affect. Good judgment and insight. Appearance: No acute distress. Skin Exam: Normal inspection. Normal color. Warm and dry. Labs/Diagnostic Data Labs Test 07/13/25 05:06 07/12/25 18:26 07/12/25 13:57 07/12/25 11:45 Range/Units White Blood Count 9.5 4.4-10.8 10^3/uL Red Blood Count 3.88 L 4.5-5.90 10^6/uL Hemoglobin 11.4 L 13.5-17.5 g/dL Hematocrit 34.0 L 41.0-53.0 % Mean Corpuscular Volume 87.6 80.0-100.0 fL Mean Corpuscular Hemoglobin 29.4 28.0-32.0 pg Mean Corpuscular Hemoglobin Concent 33.6 32.0-36.0 g/dL Red Cell Distribution Width 14.6 H 11.8-14.3 % Platelet Count 180 140-450 10^3/uL Mean Platelet Volume 9.0 6.9-10.8 fL Neutrophils (%) (Auto) 76.9 37.0-80.0 % Lymphocytes (%) (Auto) 12.8 10.0-50.0 % Monocytes (%) (Auto) 6.0 0.0-12.0 % Eosinophils (%) (Auto) 4.1 0.0-7.0 % Basophils (%) (Auto) 0.2 0.0-2.0 % Neutrophils # (Auto) 7.3 1.6-8.6 10 ^3/uL Lymphocytes # (Auto) 1.2 0.4-5.4 10 ^3/uL Monocytes # (Auto) 0.6 0-1.3 10 ^3/uL Eosinophils # (Auto) 0.4 0-0.8 10 ^3/uL Basophils # (Auto) 0 0-0.2 10 ^3/uL Nucleated Red Blood Cells 0.0 % Sodium Level 143 136-145 mmol/L Potassium Level 3.8 3.5-5.1 mmol/L Chloride Level 112 H 98-107 mmol/L Carbon Dioxide Level 20 20-31 mmol/L Anion Gap 11 5-15 Blood Urea Nitrogen 31 H 9-23 mg/dL Creatinine 2.05 H 0.700-1.30 mg/dL Glomerular Filtration Rate Calc 35 >90 mL/min BUN/Creatinine Ratio 15.1 10.0-20.0 Serum Glucose 90 74-106 mg/dL Calcium Level 8.4 L 8.7-10.4 mg/dL Total Bilirubin 0.4 0.2-1.0 mg/dL Aspartate Amino Transferase (AST) 10 L 13-40 U/L Alanine Aminotransferase (ALT) < 9 7-40 U/L Alkaline Phosphatase 94 46-116 U/L Total Protein 5.9 5.7-8.2 g/dL Albumin 3.4 3.2-4.8 g/dL Urine Creatinine 30.15 30.0-125.0 mg/dL Urine Protein/Creatinine Ratio 1.54 Urine Sodium 92 40-220 mmol/L Urine Total Protein 46.5 H 1-14 mg/dL Hemoglobin A1c 5.1 <5.7 % A1C Lactic Acid Level 0.7 0.4-2.0 mmol/L Troponin I High Sensitivity 16 </=54 ng/L Triglycerides Level 64 < 150 mg/dL Cholesterol Level 104 < 200 mg/dL LDL Cholesterol 63 < 100 mg/dL HDL Cholesterol 34 L 40-59 mg/dL Thyroid Stimulating Hormone (TSH) 0.01 L 0.55-4.78 uIU/mL Free Thyroxine (T4) Calculated 1.67 0.89-1.76 ng/dL Urine Color Colorless Yellow Urine Clarity Turbid H Clear Urine pH 6.0 5.0-9.0 Urine Specific [place] 1.009 1.001-1.035 Urine Protein Trace H Negative Urine Ketones Negative Negative Urine Blood Trace H Negative /uL Urine Nitrite Negative Negative Urine Bilirubin Negative Negative Urine Urobilinogen Normal Negative mg/dL Urine Leukocyte Esterase 3+ Negative /uL Urine RBC 16 0 - 3 /hpf Urine WBC Clumps Present None Seen /hpf Urine Microscopic WBC 68 H 0-3 /HPF Urine Squamous Epithelial Cells Few <5 /hpf Urine Bacteria Few H None Seen /hpf Urine Yeast (Budding) Few None Seen /hpf Urine Glucose Normal Normal mg/dL Urine Opiates Screen Neg NEGATIVE Urine Fentanyl Screen Neg NEGATIVE Urine Barbiturates Screen Neg NEGATIVE Urine Phencyclidine Screen Neg NEGATIVE Urine Amphetamines Screen Neg NEGATIVE Urine Benzodiazepines Screen Neg NEGATIVE Urine Cocaine Screen Neg NEGATIVE Urine Cannabinoids Screen Neg NEGATIVE Test 07/12/25 10:46 Range/Units Uric Acid 5.5 3.7-9.2 mg/dL Phosphorus Level 3.1 2.4-5.1 mg/dL Magnesium Level 2.2 1.6-2.6 mg/dL B-Type Natriuretic Peptide 16.40 0-100 pg/mL Vitamin D 25-Hydroxy 11.2 L 30.0-100 ng/mL Parathyroid Hormone (Intact) 109.6 H 18.4-80.1 pg/mL Hepatitis B Surface Antigen Negative Negative Hepatitis C Antibody Negative Negative Microbiology Date/Time Source Procedure Growth Status 07/12/25 13:57 Blood Blood Culture - Preliminary Resulted 07/12/25 11:45 Voided Urine Urine Culture - Preliminary Resulted Assessment Palpitations, rule out cardiac arrhythmia Rule out structural heart disease Hypertension Urinary tract infection Subclinical hyperthyroidism Chronic kidney disease Urinary retention with chronic Pan catheter Paraplegia Plan/Recommendation We will continue with the following plan/recommendations (Dr. Ortiz): We will proceed with obtaining a transthoracic echocardiogram to evaluate cardiac function. Continue with close cardiac surveillance to monitor for any arrhythmias. quality assurance monitor reviewed, normal sinus rhythm with occasional PVCs noted. Initiate oral magnesium and low-dose beta-pravin to control PVC burden. Low TSH noted. Thyroid management per primary care team. Thank you for allowing us to care for this patient. Please call with any questions or concerns. Critical care time spent: 44 minutes This medical document was created using an electronic medical record system with voice recognition software and computerized dictation system. Although this document has been carefully reviewed, there might still be some phonetic and typographical errors. Occasional wrong-word or ``sound-alike substitutions may have occurred due to the inherent limitations of voice recognition software. These areas are purely typographical due to imperfections of the software programs and do not reflect any compromise in the patient's medical care. Please read the chart carefully and recognize, using context, where these substitutions have occurred. Plan discussed with: Patient NYHA Physical activity limitations: NA Date of Service: Jul 13, 2025 Billing Provider: DENG COFFMAN Cardiology Common Codes: [id number] INP/OBS CARE (High) Cardiology Consultation Codes: [id number] CONSULT <45MIN DENG COFFMAN Jul 13, 2025 15:44
--- NOTE | 2025-07-13 21:44 | DVHINCON2 ---
Date Seen: Jul 13, 2025 Referring Physician MD Cj Reason for Consultation Palpitations History of Present Illness This is a 65-year-old male with a past medical history of hypertension, chronic kidney disease, chronic Apn, spinal stenosis, and paraplegia who presents to emergency room with a complaint of palpitations. The patient reports that symptoms began approximately 30 minutes prior to emergency room arrival. He also reports foul-smelling urine, cloudy urine, and fatigue at home a few days prior to emergency room arrival. Initial twelve lead electrocardiogram done at this facility revealed normal sinus rhythm with artifact in every lead. Initial troponin level of 10ng/L with flat trend thereafter. The patient denies any chest pain, palpitations, shortness of breath, or dizziness at time of assessment. He denies any previous cardiac history. Chest x-ray showed NAD. Patient was admitted to the hospital. I am asked to consult on this patient. Family History: FH: dementia G8 FATHER FH: stroke G8 MOTHER Allergies: Coded Allergies: Ciprofloxacin (Verified Allergy, Unknown, 07/12/25) Iodine (Verified Allergy, Unknown, 05/01/25) Home Meds Reported Medications Nifedipine (Nifedipine Er) 30 Mg Tab 07/12/25 Current Medications Current Medications Medications (Trade) Dose Ordered Sig/Chucho Route PRN Reason Start Time Stop Time Status Last Admin Acetaminophen/ Hydrocodone Bitart ([place] 5/325MG Tab) 1 tab Q4HP PRN PO MODERATE PAIN (4-6 PAIN SCALE) 07/12/25 16:45 Ondansetron HCl (Zofran) 4 mg Q4HP PRN IV NAUSEA / VOMITING 07/12/25 16:45 Acetaminophen (Tylenol Tablet) 650 mg Q6HP PRN PO PAIN SCALE 1-3 OR TEMP>100.4 07/12/25 16:45 Morphine Sulfate 2 mg Q4HPRN PRN IV SEVERE PAIN (7-10 PAIN SCALE) 07/12/25 17:00 Nitroglycerin (Ntrostat Sublingual) 0.4 mg Q5MINP PRN SL FOR CHEST PAIN 07/12/25 16:45 Morphine Sulfate 2 mg Q30M PRN IV FOR CHEST PAIN 07/12/25 17:00 Ceftriaxone Sodium 50 ml @ 100 mls/hr DAILY@09 IV 07/12/25 16:45 07/13/25 09:45 Nifedipine (Procardia Xl (Time-Release)) 30 mg DAILY PO 07/13/25 10:00 07/13/25 09:45 Aspirin 81 mg DAILY PO 07/13/25 10:00 07/13/25 09:45 Atorvastatin Calcium (Lipitor) 40 mg HS PO 07/12/25 22:00 Sodium Bicarbonate 50 ml/ Sodium Chloride 1,050 ml @ 120 mls/hr Q8H45M IV 07/12/25 18:45 07/13/25 15:41 Ergocalciferol (Vitamin D 50,000 Unit) 50,000 unit Q7D PO 07/13/25 10:45 07/13/25 13:55 Vancomycin HCl 0 ml @ 0 mls/hr UD IV 07/13/25 14:15 Review of Systems Constitutional: No symptom reported Ears, Nose, & Throat: No symptom reported Eyes: No symptom reported Neurological: No symptoms reported Pulmonary/Respiratory: No symptoms reported Cardiovascular: Palpitations Gastrointestinal: No symptom reported Genitourinary: No symptom reported Musculoskeletal: No symptom reported Skin: No symptom reported Psychiatric: No symptom reported Endocrine: No symptom reported Hematologic/Lymphatic: No symptom reported Vital Signs Vital Signs Date Time Temp Pulse Resp B/P (MAP) Pulse Ox O2 Delivery O2 Flow Rate FiO2 07/13/25 13:00 97.9 59 19 116/76 (89) 98 97.9 07/13/25 04:36 Room Air* 0 21 Physical Exam GENERAL: Alert and oriented x 3. No acute distress. Obese. EYES: PERRL, EOMI. Anicteric. HENT: Moist mucous membranes. LUNGS: Clear to auscultation bilaterally. CARDIOVASCULAR: Regular rate and rhythm. ABDOMEN: Soft, nontender and nondistended. EXTREMITIES: No edema. NEUROLOGIC: No focal neurological deficits. SKIN: Warm, dry. Labs/Diagnostic Data Labs Test 07/13/25 05:06 07/12/25 18:26 07/12/25 13:57 07/12/25 11:45 Range/Units White Blood Count 9.5 4.4-10.8 10^3/uL Red Blood Count 3.88 L 4.5-5.90 10^6/uL Hemoglobin 11.4 L 13.5-17.5 g/dL Hematocrit 34.0 L 41.0-53.0 % Mean Corpuscular Volume 87.6 80.0-100.0 fL Mean Corpuscular Hemoglobin 29.4 28.0-32.0 pg Mean Corpuscular Hemoglobin Concent 33.6 32.0-36.0 g/dL Red Cell Distribution Width 14.6 H 11.8-14.3 % Platelet Count 180 140-450 10^3/uL Mean Platelet Volume 9.0 6.9-10.8 fL Neutrophils (%) (Auto) 76.9 37.0-80.0 % Lymphocytes (%) (Auto) 12.8 10.0-50.0 % Monocytes (%) (Auto) 6.0 0.0-12.0 % Eosinophils (%) (Auto) 4.1 0.0-7.0 % Basophils (%) (Auto) 0.2 0.0-2.0 % Neutrophils # (Auto) 7.3 1.6-8.6 10 ^3/uL Lymphocytes # (Auto) 1.2 0.4-5.4 10 ^3/uL Monocytes # (Auto) 0.6 0-1.3 10 ^3/uL Eosinophils # (Auto) 0.4 0-0.8 10 ^3/uL Basophils # (Auto) 0 0-0.2 10 ^3/uL Nucleated Red Blood Cells 0.0 % Sodium Level 143 136-145 mmol/L Potassium Level 3.8 3.5-5.1 mmol/L Chloride Level 112 H 98-107 mmol/L Carbon Dioxide Level 20 20-31 mmol/L Anion Gap 11 5-15 Blood Urea Nitrogen 31 H 9-23 mg/dL Creatinine 2.05 H 0.700-1.30 mg/dL Glomerular Filtration Rate Calc 35 >90 mL/min BUN/Creatinine Ratio 15.1 10.0-20.0 Serum Glucose 90 74-106 mg/dL Calcium Level 8.4 L 8.7-10.4 mg/dL Total Bilirubin 0.4 0.2-1.0 mg/dL Aspartate Amino Transferase (AST) 10 L 13-40 U/L Alanine Aminotransferase (ALT) < 9 7-40 U/L Alkaline Phosphatase 94 46-116 U/L Total Protein 5.9 5.7-8.2 g/dL Albumin 3.4 3.2-4.8 g/dL Urine Creatinine 30.15 30.0-125.0 mg/dL Urine Protein/Creatinine Ratio 1.54 Urine Sodium 92 40-220 mmol/L Urine Total Protein 46.5 H 1-14 mg/dL Hemoglobin A1c 5.1 <5.7 % A1C Lactic Acid Level 0.7 0.4-2.0 mmol/L Troponin I High Sensitivity 16 </=54 ng/L Triglycerides Level 64 < 150 mg/dL Cholesterol Level 104 < 200 mg/dL LDL Cholesterol 63 < 100 mg/dL HDL Cholesterol 34 L 40-59 mg/dL Thyroid Stimulating Hormone (TSH) 0.01 L 0.55-4.78 uIU/mL Free Thyroxine (T4) Calculated 1.67 0.89-1.76 ng/dL Urine Color Colorless Yellow Urine Clarity Turbid H Clear Urine pH 6.0 5.0-9.0 Urine Specific [place] 1.009 1.001-1.035 Urine Protein Trace H Negative Urine Ketones Negative Negative Urine Blood Trace H Negative /uL Urine Nitrite Negative Negative Urine Bilirubin Negative Negative Urine Urobilinogen Normal Negative mg/dL Urine Leukocyte Esterase 3+ Negative /uL Urine RBC 16 0 - 3 /hpf Urine WBC Clumps Present None Seen /hpf Urine Microscopic WBC 68 H 0-3 /HPF Urine Squamous Epithelial Cells Few <5 /hpf Urine Bacteria Few H None Seen /hpf Urine Yeast (Budding) Few None Seen /hpf Urine Glucose Normal Normal mg/dL Urine Opiates Screen Neg NEGATIVE Urine Fentanyl Screen Neg NEGATIVE Urine Barbiturates Screen Neg NEGATIVE Urine Phencyclidine Screen Neg NEGATIVE Urine Amphetamines Screen Neg NEGATIVE Urine Benzodiazepines Screen Neg NEGATIVE Urine Cocaine Screen Neg NEGATIVE Urine Cannabinoids Screen Neg NEGATIVE Test 07/12/25 10:46 Range/Units Uric Acid 5.5 3.7-9.2 mg/dL Phosphorus Level 3.1 2.4-5.1 mg/dL Magnesium Level 2.2 1.6-2.6 mg/dL B-Type Natriuretic Peptide 16.40 0-100 pg/mL Vitamin D 25-Hydroxy 11.2 L 30.0-100 ng/mL Parathyroid Hormone (Intact) 109.6 H 18.4-80.1 pg/mL Hepatitis B Surface Antigen Negative Negative Hepatitis C Antibody Negative Negative Microbiology Date/Time Source Procedure Growth Status 07/12/25 13:57 Blood Blood Culture - Preliminary Resulted 07/12/25 11:45 Voided Urine Urine Culture - Preliminary Resulted Assessment Palpitations, rule out cardiac arrhythmia. Rule out structural heart disease. Hypertension . Urinary tract infection. Subclinical hyperthyroidism. Chronic kidney disease . Urinary retention with chronic Pan catheter. Paraplegia. Plan/Recommendation I agree with your ongoing assessment and care of plan. Patient has been seen by Daniela Stanford NP on my behalf, her and I discussed the plan with the patient. We will proceed with obtaining a transthoracic echocardiogram to evaluate cardiac function. Continue with close cardiac surveillance to monitor for any arrhythmias. threat monitoring analyst reviewed, normal sinus rhythm with occasional PVCs noted. Initiate oral magnesium and low-dose beta-pravin to control PVC burden. Low TSH noted. Thyroid management per primary care team. Additional plan as per the hospital course. Plan discussed with: Patient NYHA Physical activity limitations: NA Date of Service: Jul 13, 2025 Billing Provider: SALINAS LEGER MD Cardiology Common Codes: [id number] INP/OBS CARE (High) Cardiology Consultation Codes: [id number] CONSULT <45MIN SALINAS LEGER MD Jul 13, 2025 15:59
[2025-07-13] MEDS: METOPROLOL TARTRATE 25 MG TAB PO SCH (22:00)
[2025-07-14] VITALS (8 sets, daily range): BP systolic 102–132; BP diastolic 68–85; PULSE 62–85; RESP 14–20; TEMP 97.7–98; O2SAT 95–98
--- NOTE | 2025-07-14 00:38 | DVHSR ---
APPROVED REPORT EXAM: Two-dimensional and M-mode echocardiogram with Doppler, color Doppler and Optison. Blood Pressure: 107/67 mmHg INDICATION Palpitations RISK FACTORS Height: 4'11", Weight: 194 DIMENSIONS LVDd5.6 (3.8-5.7cm)LA (2D) (1.9-4.0cm)Aortic Root (2.0-3.7cm) LVDs4.2 (2.5-4.0cm)LA (MM) (1.9-4.0cm)Aortic Cusp Exc (1.5-2.0cm) EF (%) 50.0 (55-70%)Rt. Atrium (1.9-4.0cm)Asc. Aorta cm IVSd1.1 (0.7-1.1cm)RV (D) (1.8-2.4cm) PWd0.8 (0.7-1.1cm) Mitral Valve MitralMitral Stenosis E/A ratio0.02D MVAcm2 Other Information Quality : Technically LimitedRhythm : Technically limited study due to body habitus. Conclusion LV EF IS 65% AND IS NORMAL DYSKINESIS OF IVS SLIGHTLY DILATED RV AND RA NORMAL VALVES NORMAL RV FUNCTION NO EFFUSION
[2025-07-14] MEDS: VANCOMYCIN 1.5GM/250ML 250 ML IV ONE (05:54)
[2025-07-14 07:07] LABS: Hematocrit 34.9 % (41.0-53.0); Hemoglobin 11.8 g/dL (13.5-17.5); Mean Corpuscular Hemoglobin 29.6 pg (28.0-32.0); Mean Corpuscular Volume 87.7 fL (80.0-100.0); Nucleated Red Blood Cells % 0.0 %
--- NOTE | 2025-07-14 10:05 | DVHPN2 ---
Reviewed: Care Plan, H&P, Labs, Medications, Previous Orders, Radiology Changes from previous H/P or p: No Changes Cardiovascular: Palpitations Objective Vitals Vital Signs Date Time Temp Pulse Resp B/P (MAP) Pulse Ox O2 Delivery O2 Flow Rate FiO2 07/14/25 09:00 98.0 69 16 108/85 (93) 97 98.0 07/14/25 08:00 Room Air* 0 21 Intake/Output Intake and Output 07/14/25 07:00 Intake Total 936 ml Output Total 1850 ml Balance -914 ml Intake Oral 886 ml IV Total 50 ml Output Urine Total 1850 ml # Bowel Movements 1 Medications Current Medications Medications Dose Ordered Sig/Chucho Route Start Time Stop Time Status Last Admin Dose Admin Acetaminophen/ Hydrocodone Bitart 1 tab Q4HP PRN PO 07/12/25 16:45 Ondansetron HCl 4 mg Q4HP PRN IV 07/12/25 16:45 Acetaminophen 650 mg Q6HP PRN PO 07/12/25 16:45 Morphine Sulfate 2 mg Q4HPRN PRN IV 07/12/25 17:00 Nitroglycerin 0.4 mg Q5MINP PRN SL 07/12/25 16:45 Morphine Sulfate 2 mg Q30M PRN IV 07/12/25 17:00 Ceftriaxone Sodium 50 ml @ 100 mls/hr DAILY@09 IV 07/12/25 16:45 07/13/25 09:45 100 MLS/HR Nifedipine 30 mg DAILY PO 07/13/25 10:00 07/13/25 09:45 30 MG Aspirin 81 mg DAILY PO 07/13/25 10:00 07/13/25 09:45 81 MG Atorvastatin Calcium 40 mg HS PO 07/12/25 22:00 Sodium Bicarbonate 50 ml/ Sodium Chloride 1,050 ml @ 120 mls/hr Q8H45M IV 07/12/25 18:45 07/13/25 21:00 120 MLS/HR Ergocalciferol 50,000 unit Q7D PO 07/13/25 10:45 07/13/25 13:55 50,000 UNIT Vancomycin HCl 0 ml @ 0 mls/hr UD IV 07/13/25 14:15 Magnesium Oxide 400 mg DAILY PO 07/14/25 10:00 Metoprolol Tartrate 12.5 mg BID PO 07/13/25 22:00 Laboratory Results Laboratory Tests 10/10/25 05:06 07/14/25 05:59 Urinalysis Test 07/12/25 11:45 07/12/25 18:26 Urine Color Colorless (Yellow) Urine Clarity Turbid (Clear) H Urine pH 6.0 (5.0-9.0) Urine Specific [place] 1.009 (1.001-1.035) Urine Protein Trace (Negative) H Urine Ketones Negative (Negative) Urine Blood Trace /uL (Negative) H Urine Nitrite Negative (Negative) Urine Bilirubin Negative (Negative) Urine Urobilinogen Normal mg/dL (Negative) Urine Leukocyte Esterase 3+ /uL (Negative) Urine RBC 16 /hpf (0 - 3) Urine WBC Clumps Present /hpf (None Seen) Urine Microscopic WBC 68 /HPF (0-3) H Urine Squamous Epithelial Cells Few /hpf (<5) Urine Bacteria Few /hpf (None Seen) H Urine Yeast (Budding) Few /hpf (None Seen) Urine Glucose Normal mg/dL (Normal) Urine Creatinine 30.15 mg/dL (30.0-125.0) Urine Protein/Creatinine Ratio 1.54 Urine Sodium 92 mmol/L (40-220) Urine Total Protein 46.5 mg/dL (1-14) H Microbiology Microbiology Date/Time Source Procedure Growth Status 07/12/25 13:57 Blood Blood Culture - Preliminary Resulted 07/12/25 11:45 Voided Urine Urine Culture - Preliminary Resulted Labs and/or images reviewed: Labs reviewed by me, Image(s) reviewed by me Assessment/Plan Assessment/Plan Palpitations ruled out cardiac arrhythmias, consult for Cardiology Dr. Shaista Ortiz appreciated, echo 65 % ejection fraction Bacteremia with Gram-positive cocci in clusters: Vancomycin Obesity Hypertension Rule out structural heart disease Recurrent UTIs urine cultures mixed, continue Rocephin Paraplegia FERNANDO superimposed on CKD Right femur surgery BPH Subclinical hyperthyroidism Chronic urinary retention status post Pan Paraplegia History of lithotripsy Left adrenal gland failed removal Spinal canal stenosis Time Spent 70 minutes Advanced care planning time 20 minutes Patient is full code Plan discussed with: Patient My Orders Orders - CHRIS ZEE MD Procedure Category Date Status Time * Cardiology Consult CONS 07/13/25 Transmitted 12:38 Vancomycin Per PHA 07/13/25 In Process Pharmacy 14:15 Vancomycin PHA 07/14/25 In Process 1.75gm/350ml 15:00 Creatinine LAB 07/15/25 Verified 04:00 Vancomycin,Random LAB 07/15/25 Verified 04:00 Date of Service: Jul 14, 2025 Billing Provider: CHRIS ZEE MD Common Visit Codes: [id number] CARE 30-74 MIN CHRIS ZEE MD Jul 14, 2025 10:05
[2025-07-14] MEDS: MAGNESIUM OXIDE 400 MG TAB PO SCH (10:27)
--- NOTE | 2025-07-14 10:39 | DVHPN2 ---
Progress Note Date Seen: Jul 14, 2025 Medical Necessity Reason Pt with a Central, PICC or Fol: No Subjective Patient reports: No new complaints Other Systems: Patient seen and examined by myself today in follow-up Objective vital signs Vital Sign Date Time Temp Pulse Resp B/P (MAP) Pulse Ox O2 Delivery O2 Flow Rate FiO2 07/14/25 10:21 108/85 07/14/25 09:00 98.0 69 16 97 98.0 07/14/25 08:00 Room Air* 0 21 Total Intake and Output 07/13/25 07/13/25 07/14/25 15:00 23:00 07:00 Intake Total 50 ml 400 ml 486 ml Output Total 850 ml 1000 ml Balance 50 ml -450 ml -514 ml medications Current Medications Medications Dose Ordered Sig/Chucho Route Start Time Stop Time Status Last Admin Dose Admin Acetaminophen/ Hydrocodone Bitart 1 tab Q4HP PRN PO 07/12/25 16:45 Ondansetron HCl 4 mg Q4HP PRN IV 07/12/25 16:45 Acetaminophen 650 mg Q6HP PRN PO 07/12/25 16:45 Morphine Sulfate 2 mg Q4HPRN PRN IV 07/12/25 17:00 Nitroglycerin 0.4 mg Q5MINP PRN SL 07/12/25 16:45 Morphine Sulfate 2 mg Q30M PRN IV 07/12/25 17:00 Ceftriaxone Sodium 50 ml @ 100 mls/hr DAILY@09 IV 07/12/25 16:45 07/14/25 10:20 100 MLS/HR Nifedipine 30 mg DAILY PO 07/13/25 10:00 07/14/25 10:21 30 MG Aspirin 81 mg DAILY PO 07/13/25 10:00 07/14/25 10:21 81 MG Atorvastatin Calcium 40 mg HS PO 07/12/25 22:00 Sodium Bicarbonate 50 ml/ Sodium Chloride 1,050 ml @ 120 mls/hr Q8H45M IV 07/12/25 18:45 07/13/25 21:00 120 MLS/HR Ergocalciferol 50,000 unit Q7D PO 07/13/25 10:45 07/13/25 13:55 50,000 UNIT Vancomycin HCl 0 ml @ 0 mls/hr UD IV 07/13/25 14:15 Magnesium Oxide 400 mg DAILY PO 07/14/25 10:00 07/14/25 10:27 400 MG Metoprolol Tartrate 12.5 mg BID PO 07/13/25 22:00 Examination: LUNGS:Normal, CVS:Normal, MSK:Normal laboratory and microbiology Laboratory Tests 07/14/25 05:59 07/13/25 05:06 Test 07/13/25 05:06 Range/Units Serum Glucose 90 74-106 mg/dL Microbiology Date/Time Source Procedure Growth Status 07/12/25 13:57 Blood Blood Culture - Preliminary Resulted 07/12/25 11:45 Voided Urine Urine Culture - Preliminary Resulted Problem List/Assessment/Plan Problem List/Assessment/Plan FERNANDO superimposed on 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 q.week Cardiology consult Will continue to follow Critical care time 25 minutes Plan discussed with: Patient My Orders My Orders Orders - MAR GUAMAN MD Procedure Category Date Status Time Ergocalciferol PHA 07/13/25 In Process (Vitamin D 50,000 10:45 MAR GUAMAN MD Jul 14, 2025 10:39
[2025-07-14] MEDS: POTASSIUM EFFERVESENT TAB 25 MEQ PO ONE (12:01)
[2025-07-14 14:11] LABS: COVID19 ANTIGEN SOFIA FIA NEGATIVE (NEGATIVE)
[2025-07-14] MEDS: VANCOMYCIN 1.75GM/350ML 350 ML IV ONE (15:28)
[2025-07-14] MEDS ORDERED: hydrALAZINE HCL 20 MG/ML VL IV PRN (17:30)
[2025-07-15] VITALS (7 sets, daily range): BP systolic 102–137; BP diastolic 63–87; PULSE 62–103; RESP 16–19; TEMP 97.7–98; O2SAT 96–98
--- NOTE | 2025-07-15 00:52 | DVHPN2 ---
Progress Note - Dictate Date Seen: Jul 14, 2025 Medical Necessity Reason Pt with a Central, PICC or Fol: No Subjective Patient was seen and evaluated in follow up. Patient is resting in bed. Denies any further heart palpitations or chest pain. PROMPT CARE RN 1.49. Telemetry reviewed. vital signs Vital Sign Date Time Temp Pulse Resp B/P (MAP) Pulse Ox O2 Delivery O2 Flow Rate FiO2 07/14/25 17:00 97.8 75 17 128/82 (97) 98 97.8 07/14/25 08:00 Room Air* 0 21 Total Intake and Output 07/13/25 07/13/25 07/14/25 15:00 23:00 07:00 Intake Total 50 ml 400 ml 486 ml Output Total 850 ml 1000 ml Balance 50 ml -450 ml -514 ml medications Current Medications Medications Dose Ordered Sig/Chucho Route Start Time Stop Time Status Last Admin Dose Admin Acetaminophen/ Hydrocodone Bitart 1 tab Q4HP PRN PO 07/12/25 16:45 Ondansetron HCl 4 mg Q4HP PRN IV 07/12/25 16:45 Acetaminophen 650 mg Q6HP PRN PO 07/12/25 16:45 Morphine Sulfate 2 mg Q4HPRN PRN IV 07/12/25 17:00 Nitroglycerin 0.4 mg Q5MINP PRN SL 07/12/25 16:45 Morphine Sulfate 2 mg Q30M PRN IV 07/12/25 17:00 Ceftriaxone Sodium 50 ml @ 100 mls/hr DAILY@09 IV 07/12/25 16:45 07/14/25 10:20 100 MLS/HR Nifedipine 30 mg DAILY PO 07/13/25 10:00 07/14/25 10:21 30 MG Aspirin 81 mg DAILY PO 07/13/25 10:00 07/14/25 10:21 81 MG Atorvastatin Calcium 40 mg HS PO 07/12/25 22:00 Sodium Bicarbonate 50 ml/ Sodium Chloride 1,050 ml @ 120 mls/hr Q8H45M IV 07/12/25 18:45 07/14/25 16:58 120 MLS/HR Ergocalciferol 50,000 unit Q7D PO 07/13/25 10:45 07/13/25 13:55 50,000 UNIT Vancomycin HCl 0 ml @ 0 mls/hr UD IV 07/13/25 14:15 Magnesium Oxide 400 mg DAILY PO 07/14/25 10:00 07/14/25 10:27 400 MG Metoprolol Tartrate 12.5 mg BID PO 07/13/25 22:00 Hydralazine HCl 10 mg Q4HPRN PRN IV 07/14/25 17:30 UNV objective GENERAL: Alert and oriented x 3. No acute distress. Obese. EYES: PERRL, EOMI. Anicteric. HENT: Moist mucous membranes. LUNGS: Clear to auscultation bilaterally. CARDIOVASCULAR: Regular rate and rhythm. ABDOMEN: Soft, nontender and nondistended. EXTREMITIES: No edema. NEUROLOGIC: No focal neurological deficits. SKIN: Warm, dry. laboratory and microbiology Laboratory Tests 07/14/25 05:59 07/13/25 05:06 Test 07/13/25 05:06 Range/Units Serum Glucose 90 74-106 mg/dL Problem List Palpitations, rule out cardiac arrhythmia. Rule out structural heart disease. Hypertension . Urinary tract infection. Subclinical hyperthyroidism. Chronic kidney disease . Urinary retention with chronic Pan catheter. Paraplegia. Assessment/Plan Continued all current supportive medical care. Morphine and [place] for pain management. Aspirin, Metoprolol. IV antibiotics as ordered. Nifedipine. Additional plan as per the hospital course. Plan discussed with: Patient SALINAS LEGER MD Jul 14, 2025 20:58
--- NOTE | 2025-07-15 10:54 | DVHPN2 ---
Progress Note Date Seen: Jul 15, 2025 Medical Necessity Reason Pt with a Central, PICC or Fol: No Subjective Patient reports: No new complaints Other Systems: Patient seen and examined by myself today in follow-up Objective vital signs Vital Sign Date Time Temp Pulse Resp B/P (MAP) Pulse Ox O2 Delivery O2 Flow Rate FiO2 07/15/25 10:33 108/85 07/15/25 08:30 97.7 78 19 96 97.7 07/15/25 08:00 Room Air* 0 21 Total Intake and Output 07/14/25 07/14/25 07/15/25 15:00 23:00 07:00 Intake Total 0 ml 1760 ml Output Total 900 ml 1325 ml Balance -900 ml 435 ml medications Current Medications Medications Dose Ordered Sig/Chucho Route Start Time Stop Time Status Last Admin Dose Admin Acetaminophen/ Hydrocodone Bitart 1 tab Q4HP PRN PO 07/12/25 16:45 Ondansetron HCl 4 mg Q4HP PRN IV 07/12/25 16:45 Acetaminophen 650 mg Q6HP PRN PO 07/12/25 16:45 Morphine Sulfate 2 mg Q4HPRN PRN IV 07/12/25 17:00 Nitroglycerin 0.4 mg Q5MINP PRN SL 07/12/25 16:45 Morphine Sulfate 2 mg Q30M PRN IV 07/12/25 17:00 Ceftriaxone Sodium 50 ml @ 100 mls/hr DAILY@09 IV 07/12/25 16:45 07/15/25 10:32 100 MLS/HR Nifedipine 30 mg DAILY PO 07/13/25 10:00 07/15/25 10:33 30 MG Aspirin 81 mg DAILY PO 07/13/25 10:00 07/15/25 10:36 81 MG Atorvastatin Calcium 40 mg HS PO 07/12/25 22:00 Sodium Bicarbonate 50 ml/ Sodium Chloride 1,050 ml @ 120 mls/hr Q8H45M IV 07/12/25 18:45 07/15/25 10:32 120 MLS/HR Ergocalciferol 50,000 unit Q7D PO 07/13/25 10:45 07/13/25 13:55 50,000 UNIT Vancomycin HCl 0 ml @ 0 mls/hr UD IV 07/13/25 14:15 Magnesium Oxide 400 mg DAILY PO 07/14/25 10:00 07/15/25 10:32 400 MG Metoprolol Tartrate 12.5 mg BID PO 07/13/25 22:00 Hydralazine HCl 10 mg Q4HPRN PRN IV 07/14/25 17:30 UNV Examination: LUNGS:Normal, CVS:Normal, MSK:Normal laboratory and microbiology Laboratory Tests 07/15/25 06:29 07/14/25 05:59 07/13/25 05:06 Test 07/13/25 05:06 Range/Units Serum Glucose 90 74-106 mg/dL Microbiology Date/Time Source Procedure Growth Status 07/12/25 13:57 Blood Blood Culture - Preliminary Resulted 07/12/25 11:45 Voided Urine Urine Culture - Final Complete Problem List/Assessment/Plan Problem List/Assessment/Plan FERNANDO superimposed on 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 q.week I will sign off this case, please refer to my office two weeks after discharge for Chronic Kidney Disease follow-up Thank you for the consult Critical care time 25 minutes Plan discussed with: Patient Dietary Evaluation Review Recommendations by RD: Dietary education by RD, Protein Supplementation Comments: 1) Initiate Nepro bid 2) Add cardiac restriction to renal diet 3) Encourage optimal PO intake 4) Refer to outpatient RD for weight management 5) Follow-up with cardiology and nephrology 6) Continue to monitor I&O, labs, and skin integrity Expected Outcomes/Goals: 1) appetite and labs to improve 2) gradual wt loss 3) f/u in 3-5 days MAR GUAMAN MD Jul 15, 2025 10:54
--- NOTE | 2025-07-15 11:10 | DVHPN2 ---
Reviewed: Care Plan, H&P, Labs, Medications, Previous Orders, Radiology Changes from previous H/P or p: No Changes Cardiovascular: Palpitations Objective Vitals Vital Signs Date Time Temp Pulse Resp B/P (MAP) Pulse Ox O2 Delivery O2 Flow Rate FiO2 07/15/25 10:33 108/85 07/15/25 08:30 97.7 78 19 96 97.7 07/15/25 08:00 Room Air* 0 21 Intake/Output Intake and Output 07/15/25 07:00 Intake Total 1760 ml Output Total 2225 ml Balance -465 ml Intake Oral 440 ml IV Total 1320 ml Output Urine Total 2225 ml Medications Current Medications Medications Dose Ordered Sig/Chucho Route Start Time Stop Time Status Last Admin Dose Admin Acetaminophen/ Hydrocodone Bitart 1 tab Q4HP PRN PO 07/12/25 16:45 Ondansetron HCl 4 mg Q4HP PRN IV 07/12/25 16:45 Acetaminophen 650 mg Q6HP PRN PO 07/12/25 16:45 Morphine Sulfate 2 mg Q4HPRN PRN IV 07/12/25 17:00 Nitroglycerin 0.4 mg Q5MINP PRN SL 07/12/25 16:45 Morphine Sulfate 2 mg Q30M PRN IV 07/12/25 17:00 Ceftriaxone Sodium 50 ml @ 100 mls/hr DAILY@09 IV 07/12/25 16:45 07/15/25 10:32 100 MLS/HR Nifedipine 30 mg DAILY PO 07/13/25 10:00 07/15/25 10:33 30 MG Aspirin 81 mg DAILY PO 07/13/25 10:00 07/15/25 10:36 81 MG Atorvastatin Calcium 40 mg HS PO 07/12/25 22:00 Ergocalciferol 50,000 unit Q7D PO 07/13/25 10:45 07/13/25 13:55 50,000 UNIT Vancomycin HCl 0 ml @ 0 mls/hr UD IV 07/13/25 14:15 Magnesium Oxide 400 mg DAILY PO 07/14/25 10:00 07/15/25 10:32 400 MG Metoprolol Tartrate 12.5 mg BID PO 07/13/25 22:00 Hydralazine HCl 10 mg Q4HPRN PRN IV 07/14/25 17:30 UNV Laboratory Results Laboratory Tests 07/13/25 05:06 07/14/25 05:59 07/15/25 06:29 Urinalysis Test 07/12/25 11:45 07/12/25 18:26 Urine Color Colorless (Yellow) Urine Clarity Turbid (Clear) H Urine pH 6.0 (5.0-9.0) Urine Specific [place] 1.009 (1.001-1.035) Urine Protein Trace (Negative) H Urine Ketones Negative (Negative) Urine Blood Trace /uL (Negative) H Urine Nitrite Negative (Negative) Urine Bilirubin Negative (Negative) Urine Urobilinogen Normal mg/dL (Negative) Urine Leukocyte Esterase 3+ /uL (Negative) Urine RBC 16 /hpf (0 - 3) Urine WBC Clumps Present /hpf (None Seen) Urine Microscopic WBC 68 /HPF (0-3) H Urine Squamous Epithelial Cells Few /hpf (<5) Urine Bacteria Few /hpf (None Seen) H Urine Yeast (Budding) Few /hpf (None Seen) Urine Glucose Normal mg/dL (Normal) Urine Creatinine 30.15 mg/dL (30.0-125.0) Urine Protein/Creatinine Ratio 1.54 Urine Sodium 92 mmol/L (40-220) Urine Total Protein 46.5 mg/dL (1-14) H Microbiology Microbiology Date/Time Source Procedure Growth Status 07/12/25 13:57 Blood Blood Culture - Preliminary Resulted 07/12/25 11:45 Voided Urine Urine Culture - Final Complete Labs and/or images reviewed: Labs reviewed by me, Image(s) reviewed by me Assessment/Plan Assessment/Plan Palpitations rule out cardiac arrhythmias, consult for Cardiology Dr. Shaista Ortiz appreciated, echo 65 % ejection fraction Bacteremia with coagulase negative staph continue Vancomycin Obesity Hypertension Rule out structural heart disease Recurrent UTIs urine cultures mixed, continue Rocephin Paraplegia FERNANDO superimposed on CKD Right femur surgery BPH Subclinical hyperthyroidism Chronic urinary retention status post Pan Paraplegia History of lithotripsy Left adrenal gland failed removal Spinal canal stenosis Time Spent 60 minutes Advanced care planning time 20 minutes Patient is full code Plan discussed with: Patient My Orders Orders - CHRIS ZEE MD Procedure Category Date Status Time * Wound Consult CONS 07/15/25 Transmitted * Dietary Consult CONS 07/15/25 Transmitted 06:14 * Cash Applications Analyst CONS 07/15/25 Transmitted Consult Notify Provider NOTICE 07/15/25 Transmitted Malnutrition 09:27 Nutritional NOURISH 07/15/25 Transmitted Supplements 09:27 Dietary NOTICE 07/15/25 Transmitted Recommendations 09:27 Date of Service: Jul 15, 2025 Billing Provider: CHRIS ZEE MD Common Visit Codes: [id number] CARE 30-74 MIN CHRIS ZEE MD Jul 15, 2025 11:10
--- NOTE | 2025-07-15 23:51 | DVHPN2 ---
Progress Note - Dictate Date Seen: Jul 15, 2025 Medical Necessity Reason Pt with a Central, PICC or Fol: No Subjective Patient was seen and evaluated in follow up. Patient offers no new complaints. TEMPERATURE REGULATOR PYROMETER 1.96. Telemetry reviewed. vital signs Vital Sign Date Time Temp Pulse Resp B/P (MAP) Pulse Ox O2 Delivery O2 Flow Rate FiO2 07/15/25 13:00 97.8 79 19 137/87 (104) 97 97.8 07/15/25 08:00 Room Air* 0 21 Total Intake and Output 07/14/25 07/14/25 07/15/25 15:00 23:00 07:00 Intake Total 0 ml 1760 ml Output Total 900 ml 1325 ml Balance -900 ml 435 ml medications Current Medications Medications Dose Ordered Sig/Chucho Route Start Time Stop Time Status Last Admin Dose Admin Acetaminophen/ Hydrocodone Bitart 1 tab Q4HP PRN PO 07/12/25 16:45 Ondansetron HCl 4 mg Q4HP PRN IV 07/12/25 16:45 Acetaminophen 650 mg Q6HP PRN PO 07/12/25 16:45 Morphine Sulfate 2 mg Q4HPRN PRN IV 07/12/25 17:00 Nitroglycerin 0.4 mg Q5MINP PRN SL 07/12/25 16:45 Morphine Sulfate 2 mg Q30M PRN IV 07/12/25 17:00 Ceftriaxone Sodium 50 ml @ 100 mls/hr DAILY@09 IV 07/12/25 16:45 07/15/25 10:32 100 MLS/HR Nifedipine 30 mg DAILY PO 07/13/25 10:00 07/15/25 10:33 30 MG Aspirin 81 mg DAILY PO 07/13/25 10:00 07/15/25 10:36 81 MG Atorvastatin Calcium 40 mg HS PO 07/12/25 22:00 Ergocalciferol 50,000 unit Q7D PO 07/13/25 10:45 07/13/25 13:55 50,000 UNIT Vancomycin HCl 0 ml @ 0 mls/hr UD IV 07/13/25 14:15 Magnesium Oxide 400 mg DAILY PO 07/14/25 10:00 07/15/25 10:32 400 MG Metoprolol Tartrate 12.5 mg BID PO 07/13/25 22:00 Hydralazine HCl 10 mg Q4HPRN PRN IV 07/14/25 17:30 UNV objective GENERAL: Alert and oriented x 3. No acute distress. Obese. EYES: PERRL, EOMI. Anicteric. HENT: Moist mucous membranes. LUNGS: Clear to auscultation bilaterally. CARDIOVASCULAR: Regular rate and rhythm. ABDOMEN: Soft, nontender and nondistended. EXTREMITIES: No edema. NEUROLOGIC: No focal neurological deficits. SKIN: Warm, dry. laboratory and microbiology Laboratory Tests 07/15/25 06:29 07/14/25 05:59 07/13/25 05:06 Test 07/13/25 05:06 Range/Units Serum Glucose 90 74-106 mg/dL Problem List Palpitations, rule out cardiac arrhythmia. Rule out structural heart disease. Hypertension . Urinary tract infection. Subclinical hyperthyroidism. Chronic kidney disease . Urinary retention with chronic Pan catheter. Paraplegia. Assessment/Plan Continued all current supportive medical care. Morphine and [place] for pain management. Aspirin. IV antibiotics as ordered. Nifedipine. Additional plan as per the hospital course. Dietary Evaluation Review Recommendations by RD: Dietary education by RD, Protein Supplementation Comments: 1) Initiate Nepro bid 2) Add cardiac restriction to renal diet 3) Encourage optimal PO intake 4) Refer to outpatient RD for weight management 5) Follow-up with cardiology and nephrology 6) Continue to monitor I&O, labs, and skin integrity Expected Outcomes/Goals: 1) appetite and labs to improve 2) gradual wt loss 3) f/u in 3-5 days Plan discussed with: Patient SALINAS LEGER MD Jul 15, 2025 13:56
[2025-07-16] VITALS (8 sets, daily range): BP systolic 97–125; BP diastolic 63–81; PULSE 71–91; RESP 14–18; TEMP 36.5; O2SAT 95–98
[2025-07-16] MEDS: ONDANSETRON HCL 4 MG/2 ML VIAL IV PRN (05:17)
[2025-07-16 06:23] LABS: Hematocrit 34.9 % (41.0-53.0); Hemoglobin 11.7 g/dL (13.5-17.5); Mean Corpuscular Hemoglobin 29.4 pg (28.0-32.0); Mean Corpuscular Volume 87.2 fL (80.0-100.0); Nucleated Red Blood Cells % 0.0 %
--- NOTE | 2025-07-16 11:18 | DVHPN2 ---
Reviewed: Care Plan, H&P, Labs, Medications, Previous Orders, Radiology Changes from previous H/P or p: No Changes Cardiovascular: Palpitations Objective Vitals Vital Signs Date Time Temp Pulse Resp B/P (MAP) Pulse Ox O2 Delivery O2 Flow Rate FiO2 07/16/25 09:25 97.7 75 18 101/72 (82) 98 97.7 07/15/25 20:00 Room Air* 0 21 Intake/Output Intake and Output 07/16/25 07:00 Intake Total 850 ml Output Total 2500 ml Balance -1650 ml Intake Oral 800 ml IV Total 50 ml Output Urine Total 2500 ml Medications Current Medications Medications Dose Ordered Sig/Chucho Route Start Time Stop Time Status Last Admin Dose Admin Acetaminophen/ Hydrocodone Bitart 1 tab Q4HP PRN PO 07/12/25 16:45 Ondansetron HCl 4 mg Q4HP PRN IV 07/12/25 16:45 07/16/25 05:17 4 MG Acetaminophen 650 mg Q6HP PRN PO 07/12/25 16:45 Morphine Sulfate 2 mg Q4HPRN PRN IV 07/12/25 17:00 Nitroglycerin 0.4 mg Q5MINP PRN SL 07/12/25 16:45 Morphine Sulfate 2 mg Q30M PRN IV 07/12/25 17:00 Ceftriaxone Sodium 50 ml @ 100 mls/hr DAILY@09 IV 07/12/25 16:45 07/16/25 09:06 100 MLS/HR Nifedipine 30 mg DAILY PO 07/13/25 10:00 07/16/25 09:06 30 MG Aspirin 81 mg DAILY PO 07/13/25 10:00 07/16/25 09:07 81 MG Atorvastatin Calcium 40 mg HS PO 07/12/25 22:00 Ergocalciferol 50,000 unit Q7D PO 07/13/25 10:45 07/13/25 13:55 50,000 UNIT Vancomycin HCl 0 ml @ 0 mls/hr UD IV 07/13/25 14:15 Magnesium Oxide 400 mg DAILY PO 07/14/25 10:00 07/16/25 09:07 400 MG Metoprolol Tartrate 12.5 mg BID PO 07/13/25 22:00 07/16/25 09:07 12.5 MG Hydralazine HCl 10 mg Q4HPRN PRN IV 07/14/25 17:30 UNV Laboratory Results Laboratory Tests 07/13/25 05:06 07/16/25 06:05 Urinalysis Test 07/12/25 11:45 07/12/25 18:26 Urine Color Colorless (Yellow) Urine Clarity Turbid (Clear) H Urine pH 6.0 (5.0-9.0) Urine Specific [place] 1.009 (1.001-1.035) Urine Protein Trace (Negative) H Urine Ketones Negative (Negative) Urine Blood Trace /uL (Negative) H Urine Nitrite Negative (Negative) Urine Bilirubin Negative (Negative) Urine Urobilinogen Normal mg/dL (Negative) Urine Leukocyte Esterase 3+ /uL (Negative) Urine RBC 16 /hpf (0 - 3) Urine WBC Clumps Present /hpf (None Seen) Urine Microscopic WBC 68 /HPF (0-3) H Urine Squamous Epithelial Cells Few /hpf (<5) Urine Bacteria Few /hpf (None Seen) H Urine Yeast (Budding) Few /hpf (None Seen) Urine Glucose Normal mg/dL (Normal) Urine Creatinine 30.15 mg/dL (30.0-125.0) Urine Protein/Creatinine Ratio 1.54 Urine Sodium 92 mmol/L (40-220) Urine Total Protein 46.5 mg/dL (1-14) H Microbiology Microbiology Date/Time Source Procedure Growth Status 07/12/25 13:57 Blood Blood Culture - Final Staphylococcus epidermidis Complete 07/12/25 11:45 Voided Urine Urine Culture - Final Complete Assessment/Plan Assessment/Plan Palpitations rule out cardiac arrhythmias, consult for Cardiology Dr. Shaista Ortiz appreciated, echo 65 % ejection fraction Bacteremia with Staph epidermidis possible contamination Obesity Hypertension Rule out structural heart disease Recurrent UTIs urine cultures mixed, treated with Rocephin, will go home on Keflex Paraplegia FERNANDO superimposed on CKD Right femur surgery BPH Subclinical hyperthyroidism Chronic urinary retention status post Pan Paraplegia History of lithotripsy Left adrenal gland failed removal Spinal canal stenosis Time Spent 60 minutes Advanced care planning time 20 minutes Patient is full code Plan discussed with: Patient My Orders Orders - CHRIS ZEE MD Procedure Category Date Status Time * Director Of Vocational Guidance CONS 07/15/25 Transmitted Consult Date of Service: Jul 16, 2025 Billing Provider: CHRIS ZEE MD Common Visit Codes: [id number] INP/OBS CARE(HIGH) CHRIS ZEE MD Jul 16, 2025 11:18
[2025-07-16] MEDS ORDERED: CEPH500C PO (11:25)
--- NOTE | 2025-07-16 11:32 | DVHDS2 ---
Discharge Summary Date of Admission Jul 12, 2025 at 16:39 Date of Discharge: Jul 16, 2025 Admitting Diagnosis Palpitations and urinary symptoms Wounds: None Labs/Diagnostic Data: Laboratory Results Test 07/16/25 06:05 07/14/25 13:18 07/13/25 05:06 07/12/25 18:26 White Blood Count 8.6 10^3/uL (4.4-10.8) Red Blood Count 4.00 10^6/uL (4.5-5.90) Hemoglobin 11.7 g/dL (13.5-17.5) Hematocrit 34.9 % (41.0-53.0) Mean Corpuscular Volume 87.2 fL (80.0-100.0) Mean Corpuscular Hemoglobin 29.4 pg (28.0-32.0) Mean Corpuscular Hemoglobin Concent 33.7 g/dL (32.0-36.0) Red Cell Distribution Width 14.2 % (11.8-14.3) Platelet Count 184 10^3/uL (140-450) Mean Platelet Volume 9.0 fL (6.9-10.8) Neutrophils (%) (Auto) 61.1 % (37.0-80.0) Lymphocytes (%) (Auto) 21.2 % (10.0-50.0) Monocytes (%) (Auto) 8.1 % (0.0-12.0) Eosinophils (%) (Auto) 9.2 % (0.0-7.0) Basophils (%) (Auto) 0.4 % (0.0-2.0) Neutrophils # (Auto) 5.3 10 ^3/uL (1.6-8.6) Lymphocytes # (Auto) 1.8 10 ^3/uL (0.4-5.4) Monocytes # (Auto) 0.7 10 ^3/uL (0-1.3) Eosinophils # (Auto) 0.8 10 ^3/uL (0-0.8) Basophils # (Auto) 0 10 ^3/uL (0-0.2) Nucleated Red Blood Cells 0.0 % Creatinine 2.17 mg/dL (0.700-1.30) Glomerular Filtration Rate Calc 33 mL/min (>90) Random Vancomycin Level 24.4 ug/mL (5-10) SARS-CoV-2 Antigen (Rapid) Negative (NEGATIVE) Sodium Level 143 mmol/L (136-145) Potassium Level 3.8 mmol/L (3.5-5.1) Chloride Level 112 mmol/L (98-107) Carbon Dioxide Level 20 mmol/L (20-31) Anion Gap 11 (5-15) Blood Urea Nitrogen 31 mg/dL (9-23) BUN/Creatinine Ratio 15.1 (10.0-20.0) Serum Glucose 90 mg/dL (74-106) Calcium Level 8.4 mg/dL (8.7-10.4) Total Bilirubin 0.4 mg/dL (0.2-1.0) Aspartate Amino Transferase (AST) 10 U/L (13-40) Alanine Aminotransferase (ALT) < 9 U/L (7-40) Alkaline Phosphatase 94 U/L (46-116) Total Protein 5.9 g/dL (5.7-8.2) Albumin 3.4 g/dL (3.2-4.8) Urine Creatinine 30.15 mg/dL (30.0-125.0) Urine Protein/Creatinine Ratio 1.54 Urine Sodium 92 mmol/L (40-220) Urine Total Protein 46.5 mg/dL (1-14) Test 07/12/25 13:57 07/12/25 11:45 07/12/25 10:46 Hemoglobin A1c 5.1 % A1C (<5.7) Lactic Acid Level 0.7 mmol/L (0.4-2.0) Troponin I High Sensitivity 16 ng/L (</=54) Triglycerides Level 64 mg/dL (< 150) Cholesterol Level 104 mg/dL (< 200) LDL Cholesterol 63 mg/dL (< 100) HDL Cholesterol 34 mg/dL (40-59) Thyroid Stimulating Hormone (TSH) 0.01 uIU/mL (0.55-4.78) Free Thyroxine (T4) Calculated 1.67 ng/dL (0.89-1.76) Urine Color Colorless (Yellow) Urine Clarity Turbid (Clear) Urine pH 6.0 (5.0-9.0) Urine Specific [place] 1.009 (1.001-1.035) Urine Protein Trace (Negative) Urine Ketones Negative (Negative) Urine Blood Trace /uL (Negative) Urine Nitrite Negative (Negative) Urine Bilirubin Negative (Negative) Urine Urobilinogen Normal mg/dL (Negative) Urine Leukocyte Esterase 3+ /uL (Negative) Urine RBC 16 /hpf (0 - 3) Urine WBC Clumps Present /hpf (None Seen) Urine Microscopic WBC 68 /HPF (0-3) Urine Squamous Epithelial Cells Few /hpf (<5) Urine Bacteria Few /hpf (None Seen) Urine Yeast (Budding) Few /hpf (None Seen) Urine Glucose Normal mg/dL (Normal) Urine Opiates Screen Neg (NEGATIVE) Urine Fentanyl Screen Neg (NEGATIVE) Urine Barbiturates Screen Neg (NEGATIVE) Urine Phencyclidine Screen Neg (NEGATIVE) Urine Amphetamines Screen Neg (NEGATIVE) Urine Benzodiazepines Screen Neg (NEGATIVE) Urine Cocaine Screen Neg (NEGATIVE) Urine Cannabinoids Screen Neg (NEGATIVE) Uric Acid 5.5 mg/dL (3.7-9.2) Phosphorus Level 3.1 mg/dL (2.4-5.1) Magnesium Level 2.2 mg/dL (1.6-2.6) B-Type Natriuretic Peptide 16.40 pg/mL (0-100) Vitamin D 25-Hydroxy 11.2 ng/mL (30.0-100) Parathyroid Hormone (Intact) 109.6 pg/mL (18.4-80.1) Hepatitis B Surface Antigen Negative (Negative) Hepatitis C Antibody Negative (Negative) Other Laboratory Tests 07/16/25 06:05 07/13/25 05:06 Brief Hx & Hospital Course: 65-year-old male with a history of paraplegia bed-bound chronic urinary infections indwelling Pan history of BPH right femur surgery chronic urinary retention status post Pan came in for palpitations found to have no cardiac arrhythmias seen by Cardiology Dr. Ortiz echo 65 percent ejection fraction possible bacteremia but blood cultures came positive for Staph epidermidis , possible contamination. UTI treated with Rocephin urine cultures mixed. Patient feels better and being discharged home on p.o. Keflex for UTI and he will keep his appointment with the Urology Dr. Zacarias. He was on home health with [facility]. Palpitations rule out cardiac arrhythmias, consult for Cardiology Dr. Shaista Ortiz appreciated, echo 65 % ejection fraction Bacteremia with Staph epidermidis possible contamination Obesity Hypertension Rule out structural heart disease Recurrent UTIs urine cultures mixed, treated with Rocephin, will go home on Keflex Paraplegia FERNANDO superimposed on CKD Right femur surgery BPH Subclinical hyperthyroidism Chronic urinary retention status post Pan Paraplegia History of lithotripsy Left adrenal gland failed removal Spinal canal stenosis Consults/Reason for consult Cardiology Dr. Ortiz Neurology Operations or Procedures None Condition at Discharge: Fair Final Diagnosis/Problems List Palpitations rule out cardiac arrhythmias, consult for Cardiology Dr. Shaista Ortiz appreciated, echo 65 % ejection fraction Bacteremia with Staph epidermidis possible contamination Obesity Hypertension Rule out structural heart disease Recurrent UTIs urine cultures mixed, treated with Rocephin, will go home on Keflex Paraplegia FERNANDO superimposed on CKD Right femur surgery BPH Subclinical hyperthyroidism Chronic urinary retention status post Pan Paraplegia History of lithotripsy Left adrenal gland failed removal Spinal canal stenosis Discharge Disposition: Home with Health Services Discharge Instruct/Medications Diet: Cardiac 2g Na,low cholest Activity: Light activity Follow Up/Referral: Follow up with your primary Dr re recording mixer Dr. Shaista Ortiz and urology Dr. Zacarias Medications: Keflex Transmitted to pharmacy Scheduled Cephalexin Monohydrate (Cephalexin), 500 MG PO QID Miscellaneous Medications Nifedipine (Nifedipine Er), (Reported) 39 (Time taken for discharge summary 39 minutes) Discharge Statement: "Patient was advised to return to the ER or call 911 if any headaches, dizziness, shortness of breath, chest pain, abdominal pain, bleeding, fevers, or worsening of medical condition. Patient was counseled about treatment plan, medications, possible side effects, patientverbalized understanding. All questions were answered to the best of my ability. This discharge took greater then 30 minutes in planning, reviewing documentation, counseling the patient, and discussing with other team members." ASSESSMENT ASSESSMENT Hospital Course Improved Assessment Palpitations rule out cardiac arrhythmias, consult for Cardiology Dr. Shaista Ortiz appreciated, echo 65 % ejection fraction Bacteremia with Staph epidermidis possible contamination Obesity Hypertension Rule out structural heart disease Recurrent UTIs urine cultures mixed, treated with Rocephin, will go home on Keflex Paraplegia FERNANDO superimposed on CKD Right femur surgery BPH Subclinical hyperthyroidism Chronic urinary retention status post Pan Paraplegia History of lithotripsy Left adrenal gland failed removal Spinal canal stenosis Date of Service: Jul 16, 2025 Billing Provider: CHRIS ZEE MD Common Visit Codes: 78139-ZFX/OBS DISCH DAY >30min CHRIS ZEE MD Jul 16, 2025 11:32
--- NOTE | 2025-07-16 23:24 | DVHPN2 ---
Progress Note - Dictate Date Seen: Jul 16, 2025 Medical Necessity Reason Pt with a Central, PICC or Fol: No Subjective Patient was seen and evaluated in follow up. Patient has no new complaints at this time. Patient denies any cardiac symptoms. Patient is cardiac stable for discharge. Telemetry reviewed. vital signs Vital Sign Date Time Temp Pulse Resp B/P (MAP) Pulse Ox O2 Delivery O2 Flow Rate FiO2 07/16/25 16:56 97.6 89 14 123/77 (92) 98 97.6 07/16/25 08:00 Room Air* 0 21 Total Intake and Output 07/15/25 07/15/25 07/16/25 15:00 23:00 07:00 Intake Total 50 ml 450 ml 350 ml Output Total 1000 ml 1500 ml Balance 50 ml -550 ml -1150 ml medications Current Medications Medications Dose Ordered Sig/Chucho Route Start Time Stop Time Status Last Admin Dose Admin Hydralazine HCl 10 mg Q4HPRN PRN IV 07/14/25 17:30 UNV objective GENERAL: Alert and oriented x 3. No acute distress. Obese. EYES: PERRL, EOMI. Anicteric. HENT: Moist mucous membranes. LUNGS: Clear to auscultation bilaterally. CARDIOVASCULAR: Regular rate and rhythm. ABDOMEN: Soft, nontender and nondistended. EXTREMITIES: No edema. NEUROLOGIC: No focal neurological deficits. SKIN: Warm, dry. laboratory and microbiology Laboratory Tests 07/16/25 06:05 07/13/25 05:06 Test 07/13/25 05:06 Range/Units Serum Glucose 90 74-106 mg/dL Problem List Palpitations, rule out cardiac arrhythmia. Rule out structural heart disease. Hypertension . Urinary tract infection. Subclinical hyperthyroidism. Chronic kidney disease . Urinary retention with chronic Pan catheter. Paraplegia. Assessment/Plan Continued all current supportive medical care. Morphine and [place] for pain management. Aspirin. IV antibiotics as ordered. Nifedipine. Additional plan as per the hospital course. Dietary Evaluation Review Recommendations by RD: Dietary education by RD, Protein Supplementation Comments: 1) Initiate Nepro bid 2) Add cardiac restriction to renal diet 3) Encourage optimal PO intake 4) Refer to outpatient RD for weight management 5) Follow-up with cardiology and nephrology 6) Continue to monitor I&O, labs, and skin integrity Expected Outcomes/Goals: 1) appetite and labs to improve 2) gradual wt loss 3) f/u in 3-5 days Plan discussed with: Patient SALINAS LEGER MD Jul 16, 2025 23:24
--- NOTE | 2025-07-17 08:11 | ECG ---
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
--- NOTE | 2025-07-17 08:11 | ECG ---
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
== END 2025-07-16 18:10 | disposition home health service (06) | DRG 698 ==
LOC: EDUNIT# 10:11 → EDBD 10:11 → ER 10:17 → OVERFLOW 16:39 → TELE-CENTR 07-13 05:40
PROVIDERS: ADMIT Family Medicine; ATTEND Family Medicine
DX: T83.511A Infection and inflammatory reaction due to indwelling urethral catheter, initial encounter (principal); N17.0 Acute kidney failure with tubular necrosis; E87.20 Acidosis, unspecified; G82.20 Paraplegia, unspecified; R78.81 Bacteremia; N39.0 Urinary tract infection, site not specified; Y84.6 Urinary catheterization as the cause of abnormal reaction of the patient, or of later complication, without mention of misadventure at the time of the procedure; Y92.89 Other specified places as the place of occurrence of the external cause; I12.9 Hypertensive chronic kidney disease with stage 1 through stage 4 chronic kidney disease, or unspecified chronic kidney disease; E66.9 Obesity, unspecified; N18.9 Chronic kidney disease, unspecified; I48.91 Unspecified atrial fibrillation; E05.90 Thyrotoxicosis, unspecified without thyrotoxic crisis or storm; M48.00 Spinal stenosis, site unspecified; E55.9 Vitamin D deficiency, unspecified; B95.7 Other staphylococcus as the cause of diseases classified elsewhere; N40.1 Benign prostatic hyperplasia with lower urinary tract symptoms; I51.9 Heart disease, unspecified; I95.9 Hypotension, unspecified; Z82.3 Family history of stroke; Z87.440 Personal history of urinary (tract) infections; Z87.442 Personal history of urinary calculi; Z87.891 Personal history of nicotine dependence; Z88.1 Allergy status to other antibiotic agents; Z88.8 Allergy status to other drugs, medicaments and biological substances; Z74.01 Bed confinement status; Z68.32 Body mass index [BMI] 32.0-32.9, adult; Z79.899 Other long term (current) drug therapy
CPT/HCPCS: 36415; 71045; 76775; 80048; 80053; 80061; 80202; 80307; 81001; 82306; 82565; 82570; 83036; 83605; 83735; 83880; 83970; 84100; 84156; 84300; 84439; 84443; 84484; 84550; 85025; 86803; 87040; 87077; 87086; 87186; 87340; 87426; 93005; 93306; 96365; 97110; 97163; 97530; 99291; G0378; J2405; Q9956

== ENCOUNTER 2025-08-17 08:47 | Inpatient (IN) | payer MEDICARE, MEDICAID ==
[~2025-08-17] VITALS: Ht 180.3 cm; Wt 68.6 kg
[~2025-08-17 08:47] MED LIST: CEPH500C PO; NIFE1TAB31
--- NOTE | 2025-08-17 09:22 | ED.PDOC ---
History of Present Illness HPI Comments Mr. Osuna was a 65-year-old male with prior medical history of BPH requiring indwelling catheter since January 2025, CKD stage 3, spinal stenosis, hypertension, and recurrent UTIs, who presents today with chief complaint of generalized weakness and dysuria. Patient states for the last week palpitations, burning at the Pan insertion site, suprapubic pain described as intermittent, sharp, 7/10, worsened by movement, without relieving factors, increased sediment and foul-smelling urine, nausea, loose stools, and generalized fatigue. Denies vomiting, fever, chest pain, diaphoresis, chills, hematuria, and lower back pain. He states that his home health nurse switched out his Pan on Wednesday (08/15/2025), and recommended that if he continues having reported symptoms should call EMS. He was recently discharge from this institution where he was admitted for similar complaints and discharged on Keflex. Due to persistence of symptoms, the patient presents today for evaluation. On initial evaluation, the patient is afebrile, tachycardic, hypertensive, saturating adequately on room air. Chief Complaint: Abdominal Pain Time Seen by MD: 09:00 Reviewed Notes: Nurses Notes, Medications, Allergies (Allergies listed above) Allergies: Coded Allergies: Cephalexin (Verified Allergy, Unknown, 08/17/25) Ciprofloxacin (Verified Allergy, Unknown, 07/12/25) Iodine (Verified Allergy, Unknown, 05/01/25) Home Meds Active Scripts Cephalexin Monohydrate (Cephalexin) 500 Mg Cap, 500 MG PO QID, #40 CAP Prov:CHRIS ZEE MD 07/16/25 Reported Medications Nifedipine (Nifedipine Er) 30 Mg Tab 07/12/25 Information Source: Patient Mode of Arrival: EMS Severity: Moderate Timing: Days Duration: Since onset Prehospital treatment: None Past Medical History PAST MEDICAL HISTORY: CKF, HTN, UTI'S Past Medical History (Other): BPH, spinal stenosis Surgical History (Other): Lithotripsy, failed right adrenalectomy, right femoral fracture internal fixation Family History Family History: Reviewed,noncontributory to illness, No family hx of Cancer, No family hx of DM, No family hx of Heart saulo, No family hx of HTN, No family hx ofKidney saulo, No family hx of Liver saulo, No family hx of Lung saulo, No family hx of Stroke Social History Smoker: Quit Greater Than 1 Year Alcohol: Denies ETOH Use Drugs: Denies Drug Use Lives In: Home, Assisted Care Constitutional: reports: fatigue; denies: chills, diaphoresis, fever, malaise, sweats, weakness EENTM: denies: blurred vision, double vision, ear ringing, nasal discharge, nose congestion, throat pain, voice changes Respiratory: denies: cough, hemoptysis, orthopnea, shortness of breath Cardiovascular: denies: chest pain, dizzy spells, diaphoresis, Dyspnea on exertion, edema, irregular heart beat, left arm pain, lightheadedness, pa lpitations, syncope Gastrointestinal: reports: nausea, poor appetite, poor fluid intake; denies: abdomen distended, abdominal pain, blood streaked bowels, constipated, diarrhea, dysphagia, difficulty swallowing, hematemesis, melena, vomiting Genitourinary: reports: burning, dysuria, others (Suprapubic pain); denies: flank pain, frequency, hematuria, incontinence, pain, urgency Neurological: denies: dizziness, fainting, headache, numbness, paresthesia, pre-existing deficit, seizure Musculoskeletal: denies: back pain, joint pain, joint swelling, muscle pain, muscle stiffness, neck pain Integumetry: denies: bruises, laceration, lesions, lumps, rash, wounds Physical Exam General Appearance: Mild Distress, Obese HEENT: Normal ENT Inspection, PERRL/EOMI, Pharynx Normal Neck: Full Range of Motion, Non-Tender, Normal Inspection Respiratory: Chest Non-Tender, Lungs Clear, No Accessory Muscle Use, No Respiratory Distress, Normal Breath Sounds Cardiovascular: No Edema, No Murmur, Normal Peripheral Pulses, Tachycardia Breast Exam: Deferred Gastrointestinal: Other (Abdomen nondistended, normoactive bowel sounds, soft, painful to palpation suprapubic region, presence of Pan catheter inserted in the urethra, draining yellow urine with sedimentation) Genitalia: Deferred Pelvic: Deferred Rectal: Deferred Extremities: Decreased range of motion (Decreased range of motion of right leg due to previous hip surgery), Normal inspection, Non-tender, No pedal edema Neurologic: Alert, Normal Affect, Normal Mood Cerebellar Function: Normal Reflexes: NOT DONE Skin: Normal Color Peripheral Pulses: 2+ dorsalis pedis (R), 2+ dorsalis pedis (L) Lymphatic: Other (No cervical adenopathy ) Was a procedure done? Was a procedure done?: No Differential Dx Considerations may include: Sepsis, acute cystitis, acute pyelonephritis, CAUTI, urolithiasis, nephrolithiasis, acute gastroenteritis, acute gastritis, acute enterocolitis X-Ray, Labs, Meds, VS Vital Signs Date Time Temp Pulse Resp B/P (MAP) Pulse Ox O2 Delivery O2 Flow Rate FiO2 08/17/25 10:17 92 08/17/25 09:45 98.0 97 12 120/75 (90) 98 98.0 08/17/25 09:45 97 12 98 Room Air* 0 21 08/17/25 08:47 98.4 108 20 142/80 99 98.4 Lab Test 08/17/25 09:30 Range/Units White Blood Count 9.1 4.4-10.8 10^3/uL Red Blood Count 4.20 L 4.5-5.90 10^6/uL Hemoglobin 12.2 L 13.5-17.5 g/dL Hematocrit 36.6 L 41.0-53.0 % Mean Corpuscular Volume 87.0 80.0-100.0 fL Mean Corpuscular Hemoglobin 28.9 28.0-32.0 pg Mean Corpuscular Hemoglobin Concent 33.2 32.0-36.0 g/dL Red Cell Distribution Width 13.2 11.8-14.3 % Platelet Count 167 140-450 10^3/uL Mean Platelet Volume 9.6 6.9-10.8 fL Neutrophils (%) (Auto) 69.9 37.0-80.0 % Lymphocytes (%) (Auto) 16.5 10.0-50.0 % Monocytes (%) (Auto) 6.3 0.0-12.0 % Eosinophils (%) (Auto) 6.8 0.0-7.0 % Basophils (%) (Auto) 0.5 0.0-2.0 % Neutrophils # (Auto) 6.4 1.6-8.6 10 ^3/uL Lymphocytes # (Auto) 1.5 0.4-5.4 10 ^3/uL Monocytes # (Auto) 0.6 0-1.3 10 ^3/uL Eosinophils # (Auto) 0.6 0-0.8 10 ^3/uL Basophils # (Auto) 0 0-0.2 10 ^3/uL Nucleated Red Blood Cells 0.0 % Sodium Level 142 136-145 mmol/L Potassium Level 3.6 3.5-5.1 mmol/L Chloride Level 112 H 98-107 mmol/L Carbon Dioxide Level 18 L 20-31 mmol/L Anion Gap 12 5-15 Blood Urea Nitrogen 29 H 9-23 mg/dL Creatinine 2.06 H 0.700-1.30 mg/dL Glomerular Filtration Rate Calc 35 >90 mL/min BUN/Creatinine Ratio 14.1 10.0-20.0 Serum Glucose 93 74-106 mg/dL Lactic Acid Level 1.0 0.4-2.0 mmol/L Calcium Level 8.9 8.7-10.4 mg/dL Current Medications Medications (Trade) Dose Ordered Sig/Chucho Route Start Time Stop Time Status Last Admin Sodium Chloride 2,250 ml @ 2,250 mls/hr ONCE ONCE IV 08/17/25 09:30 08/17/25 10:29 DC 08/17/25 09:31 Piperacillin Sod/ Tazobactam Sod 100 ml @ 100 mls/hr ONCE ONCE IV 08/17/25 09:30 08/17/25 10:29 DC 08/17/25 09:45 Ondansetron HCl (Zofran) 4 mg ONCE ONCE IV 08/17/25 10:30 08/17/25 10:32 DC 08/17/25 10:55 IV Hep-Lock was established. The patient's CBC and chemistry panel shows a BUN of 29 a creatinine of 2.06 The lactic acid level is 1.0 The patient was started on antibiotics in his being admitted at this time Time of 1ST Reevaluation: 12:00 Reevaluation 1ST: Improved Patient Education/Counseling: Diagnosis, Treatment, Prognosis Family Education/Counseling: No Family Present Comments Patient presented today due to chief complaint of generalized fatigue and dysuria On initial evaluation, the patient is afebrile, tachycardic, hypertensive, saturating adequately on room air Physical exam is positive for presence of pain on suprapubic palpation, a Pan catheter is observed to be inserted via the urethra, draining clear yellow urine with sedimentation CBC shows normocytic anemia, BMP shows possible FERNANDO in the setting of CKD when compared to baseline from previous hospitalization on 07/14/2025, lactic acid is 1.0, UA is pending Due to suspicion of sepsis, sepsis protocol was initiated. Blood cultures and lactic acid were drawn, NS at 30 cc/kilogram IV and Zosyn 3.375 mg IV were given due concern of resistance due to chronic indwelling catheter status and recent antibiotic use. Zofran 4 mg IV was given for nausea.. The patient will be admitted for further IV antibiotic management SEPSIS Sepsis Screen Date sepsis recognized/suspect: Aug 17, 2025 Time Sepsis recognized/suspect: 08 Recent Procedure: No On Antibiotic Therapy: No Respiratory Rate >20: No Heart Rate >90: Yes Temp<36 C (96.8 F) or >38.3 C: No SBP <90 or MAP <65 mmHG: No New Acute Mental Status Change: No Is the patient on CPAP, BIPAP,: No Physician Orders Blood Culture (08/17/25 09:20) Urinalysis (08/17/25 09:20) Electrocardigram (08/17/25 10:20) Vital Signs Date Time Temp Pulse Resp B/P (MAP) Pulse Ox O2 Delivery O2 Flow Rate FiO2 08/17/25 10:17 92 08/17/25 09:45 98.0 97 12 120/75 (90) 98 98.0 08/17/25 09:45 97 12 98 Room Air* 0 21 08/17/25 08:47 98.4 108 20 142/80 99 98.4 Laboratory Tests Test 08/17/25 09:30 Lactic Acid Level 1.0 mmol/L (0.4-2.0) White Blood Count 9.1 10^3/uL (4.4-10.8) Medications Medications Dose Ordered Sig/Chucho Route Start Time Stop Time Status Last Admin Dose Admin Ondansetron HCl 4 mg ONCE ONCE IV 08/17/25 10:30 08/17/25 10:32 DC 08/17/25 10:55 Piperacillin Sod/ Tazobactam Sod 100 ml @ 100 mls/hr ONCE ONCE IV 08/17/25 09:30 08/17/25 10:29 DC 08/17/25 09:45 Sodium Chloride 2,250 ml @ 2,250 mls/hr ONCE ONCE IV 08/17/25 09:30 08/17/25 10:29 DC 08/17/25 09:31 Departure 1 Departure Time of Disposition: 12:29 Impression: Primary Impression: Urinary tract infection Qualified Codes: N30.00 - Acute cystitis without hematuria Additional Impression: Generalized weakness Disposition: ADMITTED INPATIENT Admit to: Med Surg Condition: Stable Critical Care Note Critical Care Time?: No Stability Stability form required: Yes Unstable for transfer: ED Physician Assesment (Clinical assesment) Heart Score Heart Score: Heart Score Response (Comments) Value History N/A 0 EKG N/A 0 Age N/A 0 Risk Factors N/A 0 Troponin N/A 0 Total 0 DAIJA LAL RESIDENT Aug 17, 2025 09:22 TONI MURILLO MD Aug 17, 2025 12:44
[2025-08-17] MEDS: SODIUM CHLORIDE 0.9% 2,250 ML IV ONE (09:31)
[2025-08-17 09:45] VITALS: PULSE 97; RESP 12; O2SAT 98
[2025-08-17] MEDS: PIPERACILLIN-TAZOB 3.375GM 100 ML IV ONE (09:45)
[2025-08-17 10:04] LABS: Hematocrit 36.6 % (41.0-53.0); Hemoglobin 12.2 g/dL (13.5-17.5); Mean Corpuscular Hemoglobin 28.9 pg (28.0-32.0); Mean Corpuscular Volume 87.0 fL (80.0-100.0); Nucleated Red Blood Cells % 0.0 %; Potassium 3.6 mmol/L (3.5-5.1); Sodium 142 mmol/L (136-145)
[2025-08-17 10:05] LABS: Anion Gap 12 (5-15); Calcium 8.9 mg/dL (8.7-10.4)
[2025-08-17 10:08] LABS: Carbon Dioxide 18 mmol/L (20-31); Chloride 112 mmol/L (98-107)
[2025-08-17 10:10] LABS: BUN/Creatinine Ratio 14.1 (10.0-20.0); Glucose 93 mg/dL (74-106)
[2025-08-17 10:12] LABS: Blood Urea Nitrogen 29 mg/dL (9-23)
[2025-08-17] MEDS: ONDANSETRON HCL 4 MG/2 ML VIAL IV ONE (10:55)
[2025-08-17] MEDS ORDERED: NITROGLYCERIN 0.4 MG SL TAB SL PRN (13:15)
[2025-08-17] MEDS ORDERED: MORPHINE SULFATE INJ 2 MG/ml SYRG IV PRN (13:15)
[2025-08-17 17:45] VITALS: BP 124/74; PULSE 72; TEMP 97.9; O2SAT 96
[2025-08-17 17:57] VITALS: PULSE 72; RESP 16; O2SAT 96
[2025-08-17 18:05] VITALS: BP 124/74; PULSE 72; RESP 18; TEMP 97.9; O2SAT 96
--- NOTE | 2025-08-17 18:12 | DVHHPRES ---
History of Present Illness Resident Creating Document: ADAL KOVACS RESIDENT History of Present Illness MAGDALENA SHEARER, a 65-year-old male with a history of BPH requiring indwelling catheter since January 2025, CKD stage 3, spinal stenosis, hypertension, and recurrent UTIs presents with generalized weakness and dysuria. For the past week, he reports palpitations, burning at the Pan insertion site, suprapubic pain (intermittent, sharp, 7/10, worsened by movement), increased sediment and foul-smelling urine, nausea, loose stools, and fatigue. Denies vomiting, fever, chest pain, diaphoresis, chills, hematuria, or lower back pain. Pan catheter was changed by home health nurse on 08/15/2025, who advised ED visit if symptoms persisted. Recently discharged after similar complaints and treated with Keflex. On arrival, patient is afebrile, tachycardic, hypertensive, and saturating well on room air. Past surgical history includes lithotripsy, failed right adrenale ctomy, and right femoral fracture fixation. PMHx: Paraplegia, BPH, Spinal stenosis, CKD, hypertension, hypertension and UTI, Gram Positive bacteremia PSHx: lithotripsy, failed left adrenal gland removal, right femoral fracture internal fixation Family history: Reviewed, noncontributory to illness, No family hx of Cancer, No family hx of DM, No family hx of Heart saulo, No family hx of HTN, No family hx of Kidney saulo, No family hx of Liver saulo, No family hx of Lung saulo, No family hx of Stroke Social history: Patient quit smoking more than one year ago, denies alcohol and illicit drug use, and currently lives at home with assisted care. Review of Systems Constitutional: Yes: Chills; No: Fever, Sweats, Weakness, Malaise, Other Eyes: No: Pain, Vision change, Conjunctivae inflammation, Eyelid inflammation, Other, Redness ENT: No: Ear pain, Ear discharge, Nose pain, Nose discharge, Nose congestion, Mouth pain, Mouth swelling, Throat pain, Throat swelling, Other Respiratory: No: Cough, Dry, Shortness of breath, SOB with excertion, Wheezing, Hemoptysis, Pleuritic Pain, Sputum, Wheezing, Other Cardiovascular: No: Chest Pain, Palpitations, Orthopnea, Paroxysmal Noc. Dyspnea, Edema, Lt Headedness, Other Gastrointestinal: Abdominal Pain; No: Nausea, Vomiting, Diarrhea, Constipation, Melena, Hematochezia, Other Genitourinary: Dysuria, Frequency; No Incontinence, No Hematuria; Retention; No Other Musculoskeletal: No: other, neck pain, shoulder pain, arm pain, back pain, hand pain, leg pain, foot pain Skin: No: Rash, Lesions, Jaundice, Bruising, Other Neurological: No: Weakness, Numbness, Incoordination, Change in speech, Confusion, Seizures, Other Allergies: Coded Allergies: Cephalexin (Verified Allergy, Unknown, 08/17/25) Ciprofloxacin (Verified Allergy, Unknown, 07/12/25) Iodine (Verified Allergy, Unknown, 05/01/25) Medications Current Medications Medications Dose Ordered Sig/Chucho Route Start Time Stop Time Status Last Admin Dose Admin Nitroglycerin 0.4 mg Q5MINP PRN SL 08/17/25 13:15 Morphine Sulfate 2 mg Q30M PRN IV 08/17/25 13:15 Ceftriaxone Sodium/Dextrose 50 ml @ 50 mls/hr DAILY IV 08/17/25 13:45 08/17/25 14:23 50 MLS/HR Exam Vital Signs Vital Signs Date Time Temp Pulse Resp B/P (MAP) Pulse Ox O2 Delivery O2 Flow Rate FiO2 08/17/25 18:05 97.9 72 18 124/74 (91) 96 97.9 08/17/25 09:45 Room Air* 0 21 General Appearance: Alert, Oriented X3, Cooperative HEENT: Atraumatic, PERRLA, EOMI, Mucous membr. moist/pink Respiratory: Clear to auscultation, Normal air movement Cardiovascular: Regular rate, Normal S1, Normal S2, No murmurs Abdominal: Normal bowel sounds, Soft, Other (suprapubic tenderness, central obesity, no flank tenderness, indwelling foleys catheter in place. sacral wound superficial. ) Extremities: No clubbing, No cyanosis, No edema, Normal pulses, No tenderne ss/swelling Skin: No rashes, No breakdown, No significant lesion Neuro: Normal speech, Sensation intact, Other (deferred) Psych/Mental Status: Mental status NL, Mood NL, Other Labs/Xrays Labs Test 08/17/25 09:30 Range/Units White Blood Count 9.1 4.4-10.8 10^3/uL Red Blood Count 4.20 L 4.5-5.90 10^6/uL Hemoglobin 12.2 L 13.5-17.5 g/dL Hematocrit 36.6 L 41.0-53.0 % Mean Corpuscular Volume 87.0 80.0-100.0 fL Mean Corpuscular Hemoglobin 28.9 28.0-32.0 pg Mean Corpuscular Hemoglobin Concent 33.2 32.0-36.0 g/dL Red Cell Distribution Width 13.2 11.8-14.3 % Platelet Count 167 140-450 10^3/uL Mean Platelet Volume 9.6 6.9-10.8 fL Neutrophils (%) (Auto) 69.9 37.0-80.0 % Lymphocytes (%) (Auto) 16.5 10.0-50.0 % Monocytes (%) (Auto) 6.3 0.0-12.0 % Eosinophils (%) (Auto) 6.8 0.0-7.0 % Basophils (%) (Auto) 0.5 0.0-2.0 % Neutrophils # (Auto) 6.4 1.6-8.6 10 ^3/uL Lymphocytes # (Auto) 1.5 0.4-5.4 10 ^3/uL Monocytes # (Auto) 0.6 0-1.3 10 ^3/uL Eosinophils # (Auto) 0.6 0-0.8 10 ^3/uL Basophils # (Auto) 0 0-0.2 10 ^3/uL Nucleated Red Blood Cells 0.0 % Sodium Level 142 136-145 mmol/L Potassium Level 3.6 3.5-5.1 mmol/L Chloride Level 112 H 98-107 mmol/L Carbon Dioxide Level 18 L 20-31 mmol/L Anion Gap 12 5-15 Blood Urea Nitrogen 29 H 9-23 mg/dL Creatinine 2.06 H 0.700-1.30 mg/dL Glomerular Filtration Rate Calc 35 >90 mL/min BUN/Creatinine Ratio 14.1 10.0-20.0 Serum Glucose 93 74-106 mg/dL Lactic Acid Level 1.0 0.4-2.0 mmol/L Calcium Level 8.9 8.7-10.4 mg/dL SEPSIS Sepsis Screen Date sepsis recognized/suspect: Aug 17, 2025 Time Sepsis recognized/suspect: 944 Recent Procedure: No On Antibiotic Therapy: No Respiratory Rate >20: No Heart Rate >90: Yes Temp<36 C (96.8 F) or >38.3 C: No SBP <90 or MAP <65 mmHG: No New Acute Mental Status Change: No Is the patient on CPAP, BIPAP,: No Physician Orders Electrocardigram (08/17/25 10:20) Admit (08/17/25 13:04) Nitroglycerin Sublingual (Ntrostat Subli (08/17/25 13:15) Morphine Sulfate Injection (08/17/25 13:15) Oxygen By Nasal Cannula (08/17/25 13:04) Stat Ekg For Chest Pain (08/17/25 13:04) Notify Md Of Changes From Base (08/17/25 13:04) Maintenance Painter Apprentice For 24 Hours (08/17/25 13:04) Emergency Dysrhythmia Protocol (08/17/25 13:04) Rhythm Strips Once Every Shift (08/17/25 13:04) Ceftriaxone 2gm/50ml (Rocephin 2gm/50ml) (08/17/25 13:45) Vital Signs Date Time Temp Pulse Resp B/P (MAP) Pulse Ox O2 Delivery O2 Flow Rate FiO2 08/17/25 18:05 97.9 72 18 124/74 (91) 96 97.9 08/17/25 16:00 69 17 124/80 (95) 97 08/17/25 14:00 85 12 120/72 (88) 97 08/17/25 12:00 97.9 87 13 118/73 (88) 96 97.9 08/17/25 10:17 92 Laboratory Tests Test 08/17/25 09:30 Lactic Acid Level 1.0 mmol/L (0.4-2.0) White Blood Count 9.1 10^3/uL (4.4-10.8) Medications Medications Dose Ordered Sig/Chucho Route Start Time Stop Time Status Last Admin Dose Admin Ceftriaxone Sodium/Dextrose 50 ml @ 50 mls/hr DAILY IV 08/17/25 13:45 08/17/25 14:23 50 MLS/HR Ondansetron HCl 4 mg ONCE ONCE IV 08/17/25 10:30 08/17/25 10:32 DC 08/17/25 10:55 4 MG Piperacillin Sod/ Tazobactam Sod 100 ml @ 100 mls/hr ONCE ONCE IV 08/17/25 09:30 08/17/25 10:29 DC 08/17/25 09:45 100 MLS/HR Sodium Chloride 2,250 ml @ 2,250 mls/hr ONCE ONCE IV 08/17/25 09:30 08/17/25 10:29 DC 08/17/25 09:31 2,250 MLS/HR Assessment/Plan Assessment/Plan #Acute complicated UTI: burning, dysuria, others (Suprapubic pain) , with indwelling catheter, catheter change, urine sample to send, no previous ESBL noted, IV ceftriaxone to continue, blood culture to check. #Essential hypertension: Home medications of nifedipine ER 30 mg daily, target blood pressure 140/90 or below. given well-controlled blood pressure we will hold on antihypertensives calm, if the blood pressure rises tomorrow, consider restarting nifedipine. #Hypertensive heart disease: Left ventricular hypertrophy , blood pressure control, lifestyle modifications to continue #Previous recurrent UTI patient was treated previously outpatient pena ciprofloxacin, cephalexin, nitrofurantoin. # Prior history of recurrent stone: Status post lithotripsy check kidney ultrasound for radiolucent and radiopaque renal obstructions. #FERNANDO due to VMN: likely prerenal, IV fluid to continue, rule out obstruction #Baseline CKD: Baseline creatinine 1.9, close monitoring, avoid nephrotoxins. close input output to check. Outpatient close follow up with Nephrology #known allergies to ciprofloxacin, cephalexin and iodine avoid #Moderate atherosclerotic vascular disease. Coronary artery disease: Denies any chest pain #BPH requiring indwelling catheter since January 2025 #CKD stage 3 At baseline #history of spinal stenosis, denies any pain, as needed Tylenol for pain management. #grade 2 obesity: BMI 35.1 weight loss counseling done. #sacral wound: wound consult and offload with positions changes. PUD prophylaxis: protonix 40mg/not needed DVT prophylaxis: Levonox 40mg/SCD/brisk movement. Barriers to discharge: Medical diagnosis and management in progress. Patient lives with self / family. Independent/need supportive device/wheelchair/person support for ADL. PT and SW consult as needed. PCP: Out of the area. Looking for a local PCP. distance learning program coordinator consulted. Needs close follow up with nephrology outpatient pena. Specialist Relevant To Admission: NO need to consult currently. If needed urology consult, previously patient was evaluated by Urology out of the area. Case discussed with Dr. Rowell. Code Status: Full Code. Discussion needed total 39 minutes bedside. Plan discussed with: Patient My Orders Orders - ADAL KOVACS Procedure Category Date Status Time Admit ADMIT 08/17/25 Transmitted 13:04 Nitroglycerin LOCATED WITHIN [facility] 08/17/25 In Process Sublingual (Ntrostat 13:15 Morphine Sulfate PHA 08/17/25 In Process Injection 13:15 Oxygen By Nasal RT 08/17/25 Transmitted Cannula 13:04 Stat Ekg For Chest [facility] 08/17/25 In Process Pain 13:04 Notify Md Of Changes [facility] 08/17/25 In Process From Base 13:04 Maintenance Painter Apprentice For [facility] 08/17/25 In Process 24 Hours 13:04 Emergency Dysrhythmia [facility] 08/17/25 In Process Protocol 13:04 Rhythm Strips Once [facility] 08/17/25 In Process Every Shift 13:04 Ceftriaxone 2gm/50ml PHA 08/17/25 In Process (Rocephin 2gm/50ml) 13:45 Date of Service: Aug 17, 2025 Billing Provider: LELO ROWELL MD Common Visit Codes: [id number] INP/OBS CARE (HIGH) Secondary Visit Codes: [id number] CARE PLAN 30 MINUTES ADAL KOVACS Aug 17, 2025 18:12
[2025-08-17] MEDS ORDERED: NIFE1TAB31 PO (18:27)
[2025-08-17 21:00] VITALS: BP 145/75; PULSE 76; RESP 17; TEMP 98.3; O2SAT 98
[2025-08-17 22:53] LABS: Urine Budding Yeast MODERATE /hpf (None Seen); Urine Protein, UAD TRACE (Negative); Urine WBC Clumps PRESENT /hpf (None Seen)
[2025-08-18] VITALS (8 sets, daily range): BP systolic 90–122; BP diastolic 50–69; PULSE 60–84; RESP 15–18; TEMP 97.8–98.4; O2SAT 96–99
[2025-08-18 05:58] LABS: Hematocrit 32.5 % (41.0-53.0); Hemoglobin 10.7 g/dL (13.5-17.5); Mean Corpuscular Hemoglobin 29.5 pg (28.0-32.0); Mean Corpuscular Volume 89.6 fL (80.0-100.0); Nucleated Red Blood Cells % 0.1 %
[2025-08-18 06:12] LABS: Anion Gap 11 (5-15); Potassium 3.9 mmol/L (3.5-5.1)
[2025-08-18 06:15] LABS: Calcium 8.5 mg/dL (8.7-10.4); Carbon Dioxide 18 mmol/L (20-31); Chloride 116 mmol/L (98-107); Sodium 145 mmol/L (136-145)
[2025-08-18 06:18] LABS: BUN/Creatinine Ratio 12.4 (10.0-20.0); Glucose 101 mg/dL (74-106)
[2025-08-18 06:35] LABS: Blood Urea Nitrogen 25 mg/dL (9-23)
--- NOTE | 2025-08-18 13:21 | DVHPN2 ---
Reviewed: Care Plan, H&P, Labs, Medications, Previous Orders, Radiology Changes from previous H/P or p: No Changes Eyes: No Pain, No Vision change, No Conjunctivae inflammation, No Eyelid inflammation, No Other, No Redness ENT: No Ear pain, No Ear discharge, No Nose pain, No Nose discharge, No Nose congestion, No Mouth pain, No Mouth swelling, No Throat pain, No Throat swelling, No Other Cardiovascular: No Chest Pain, No Palpitations, No Orthopnea, No Paroxysmal Noc. Dyspnea, No Edema, No Lt Headedness, No Other Respiratory: No Cough, No Dry, No Shortness of breath, No SOB with excertion, No Wheezing, No Hemoptysis, No Pleuritic Pain, No Sputum, No Other Gastrointestinal: No Nausea, No Vomiting; Abdominal Pain; No Diarrhea, No Constipation, No Melena, No Hematochezia, No Other Genitourinary: Dysuria, Frequency; No Incontinence, No Hematuria; Retention; No Other Musculoskeletal: No other, No neck pain, No shoulder pain, No arm pain, No back pain, No hand pain, No leg pain, No foot pain Skin: No Rash, No Lesions, No Jaundice, No Bruising, No Other Objective Vitals Vital Signs Date Time Temp Pulse Resp B/P (MAP) Pulse Ox O2 Delivery O2 Flow Rate FiO2 08/18/25 09:52 85/43 08/18/25 09:00 98.1 61 16 96 98.1 08/18/25 08:00 Room Air* 0 21 Intake/Output Intake and Output 08/18/25 07:00 Intake Total 3100 ml Output Total 650 ml Balance 2450 ml Intake Oral 700 ml IV Total 2400 ml Output Urine Total 650 ml Medications Current Medications Medications Dose Ordered Sig/Chucho Route Start Time Stop Time Status Last Admin Dose Admin Nitroglycerin 0.4 mg Q5MINP PRN SL 08/17/25 13:15 Morphine Sulfate 2 mg Q30M PRN IV 08/17/25 13:15 Ceftriaxone Sodium/Dextrose 50 ml @ 50 mls/hr DAILY IV 08/17/25 13:45 08/18/25 10:07 50 MLS/HR Nifedipine 30 mg DAILY PO 08/18/25 10:00 Laboratory Results Laboratory Tests 08/18/25 05:11 Chemistry Test 08/18/25 05:11 Calcium Level 8.5 mg/dL (8.7-10.4) L Urinalysis Test 08/17/25 22:36 Urine Color Colorless (Yellow) Urine Clarity Turbid (Clear) H Urine pH 6.0 (5.0-9.0) Urine Specific [place] 1.009 (1.001-1.035) Urine Protein Trace (Negative) H Urine Ketones Negative (Negative) Urine Blood Trace /uL (Negative) H Urine Nitrite Negative (Negative) Urine Bilirubin Negative (Negative) Urine Urobilinogen Normal mg/dL (Negative) Urine Leukocyte Esterase 3+ /uL (Negative) Urine RBC 1 /hpf (0 - 3) Urine WBC Clumps Present /hpf (None Seen) Urine Microscopic WBC 62 /HPF (0-3) H Urine Squamous Epithelial Cells Few /hpf (<5) Urine Bacteria Few /hpf (None Seen) H Urine Mucus Few (None Seen) Urine Yeast (Budding) Moderate /hpf (None Seen) Urine Glucose Trace mg/dL (Normal) Microbiology Microbiology Date/Time Source Procedure Growth Status 08/17/25 09:39 Blood Blood Culture - Preliminary NO GROWTH AFTER 24 HOURS OF INCUBATION. Resulted Labs and/or images reviewed: Labs reviewed by me, Image(s) reviewed by me Assessment/Plan Assessment/Plan Sepsis secondary to urinary tract infection: Blood cultures urine cultures Rocephin Hypotension Hypertensive heart disease History of recurrent UTI History of kidney stones status post lithotripsy FERNANDO Palpitations BPH Chronic indwelling Pan CKD three History of spinal stenosis Moderate obesity Sacral wound present on admission Time spent 70 minutes Advanced care planning time 20 minutes Patient is full code Prognosis poor Plan discussed with: Patient Date of Service: Aug 18, 2025 Billing Provider: CHRIS ZEE MD Common Visit Codes: [id number] CARE 30-74 MIN CHRIS ZEE MD Aug 18, 2025 13:21
--- NOTE | 2025-08-18 18:41 | ECG ---
[facility] Test Date: 2025-08-17 Test Time: 10:17:25 Pat Name: MAGDALENA SHEARER Department: ED Room: 0212 B Gender: M Ux Information Architect: MARIA DEL ROSARIO : 1960 Requested By: TONI MURILLO Order Number: [id number] Reading MD: Zeke Isabel Measurements Intervals Taylor Rate: 92 P: 19 VT: 130 QRS: -10 QRSD: 126 T: 20 QT: 377 QTc: 467 Interpretive Statements Sinus rhythm Ventricular premature complex IVCD, consider atypical RBBB Baseline wander in lead(s) I,II,aVR Electronically Signed On 08-21-2025 17:42:07 PST by Zeke Isabel Please click the below link to view image of tracing.
[2025-08-19] VITALS (7 sets, daily range): BP systolic 94–121; BP diastolic 62–80; PULSE 64–78; RESP 17–18; TEMP 97.6–98.6; O2SAT 96–98
--- NOTE | 2025-08-19 07:59 | DVHPN2 ---
Reviewed: Care Plan, H&P, Labs, Medications, Previous Orders, Radiology Changes from previous H/P or p: No Changes Eyes: No Pain, No Vision change, No Conjunctivae inflammation, No Eyelid inflammation, No Other, No Redness ENT: No Ear pain, No Ear discharge, No Nose pain, No Nose discharge, No Nose congestion, No Mouth pain, No Mouth swelling, No Throat pain, No Throat swelling, No Other Cardiovascular: No Chest Pain, No Palpitations, No Orthopnea, No Paroxysmal Noc. Dyspnea, No Edema, No Lt Headedness, No Other Respiratory: No Cough, No Dry, No Shortness of breath, No SOB with excertion, No Wheezing, No Hemoptysis, No Pleuritic Pain, No Sputum, No Other Gastrointestinal: No Nausea, No Vomiting; Abdominal Pain; No Diarrhea, No Constipation, No Melena, No Hematochezia, No Other Genitourinary: Dysuria, Frequency; No Incontinence, No Hematuria; Retention; No Other Musculoskeletal: No other, No neck pain, No shoulder pain, No arm pain, No back pain, No hand pain, No leg pain, No foot pain Skin: No Rash, No Lesions, No Jaundice, No Bruising, No Other Objective Vitals Vital Signs Date Time Temp Pulse Resp B/P (MAP) Pulse Ox O2 Delivery O2 Flow Rate FiO2 08/19/25 05:00 98.4 76 17 103/65 (78) 97 98.4 08/18/25 20:00 Room Air* 0 21 Intake/Output Intake and Output 08/19/25 07:00 Intake Total 1450 ml Output Total 1525 ml Balance -75 ml Intake Oral 1400 ml IV Total 50 ml Output Urine Total 1525 ml Medications Current Medications Medications Dose Ordered Sig/Chucho Route Start Time Stop Time Status Last Admin Dose Admin Nitroglycerin 0.4 mg Q5MINP PRN SL 08/17/25 13:15 Morphine Sulfate 2 mg Q30M PRN IV 08/17/25 13:15 Ceftriaxone Sodium/Dextrose 50 ml @ 50 mls/hr DAILY IV 08/17/25 13:45 08/18/25 10:07 50 MLS/HR Nifedipine 30 mg DAILY PO 08/18/25 10:00 Laboratory Results Laboratory Tests 08/18/25 05:11 Urinalysis Test 08/17/25 22:36 Urine Color Colorless (Yellow) Urine Clarity Turbid (Clear) H Urine pH 6.0 (5.0-9.0) Urine Specific [place] 1.009 (1.001-1.035) Urine Protein Trace (Negative) H Urine Ketones Negative (Negative) Urine Blood Trace /uL (Negative) H Urine Nitrite Negative (Negative) Urine Bilirubin Negative (Negative) Urine Urobilinogen Normal mg/dL (Negative) Urine Leukocyte Esterase 3+ /uL (Negative) Urine RBC 1 /hpf (0 - 3) Urine WBC Clumps Present /hpf (None Seen) Urine Microscopic WBC 62 /HPF (0-3) H Urine Squamous Epithelial Cells Few /hpf (<5) Urine Bacteria Few /hpf (None Seen) H Urine Mucus Few (None Seen) Urine Yeast (Budding) Moderate /hpf (None Seen) Urine Glucose Trace mg/dL (Normal) Microbiology Microbiology Date/Time Source Procedure Growth Status 08/17/25 09:39 Blood Blood Culture - Preliminary NO GROWTH AFTER 24 HOURS OF INCUBATION. Resulted Labs and/or images reviewed: Labs reviewed by me, Image(s) reviewed by me Assessment/Plan Assessment/Plan Sepsis secondary to urinary tract infection: Blood cultures negative urine cultures pending, continue Rocephin Hypotension secondary to sepsis Hypertensive heart disease History of recurrent UTI History of kidney stones status post lithotripsy FERNANDO Palpitations BPH Chronic indwelling Pan CKD 3 History of spinal stenosis Moderate obesity Sacral decubitus wound present on admission: Wound consult Time spent 60 minutes Advanced care planning time 20 minutes Patient is full code Prognosis poor Plan discussed with: Patient My Orders Orders - CHRIS ZEE MD Procedure Category Date Status Time Renal DIET 08/18/25 Transmitted Standard(2gna,3gk,Lopho) Dinner Apply Z-Guard TERRENCE 08/18/25 In Process 13:25 Date of Service: Aug 19, 2025 Billing Provider: CHRIS ZEE MD Common Visit Codes: [id number] INP/OBS CARE(HIGH) CHRIS ZEE MD Aug 19, 2025 07:59
[2025-08-20] VITALS (7 sets, daily range): BP systolic 112–132; BP diastolic 71–84; PULSE 68–84; RESP 16–18; TEMP 97.4–98.5; O2SAT 96–99
--- NOTE | 2025-08-20 08:51 | DVHPN2 ---
Reviewed: Care Plan, H&P, Labs, Medications, Previous Orders, Radiology Changes from previous H/P or p: No Changes Eyes: No Pain, No Vision change, No Conjunctivae inflammation, No Eyelid inflammation, No Other, No Redness ENT: No Ear pain, No Ear discharge, No Nose pain, No Nose discharge, No Nose congestion, No Mouth pain, No Mouth swelling, No Throat pain, No Throat swelling, No Other Cardiovascular: No Chest Pain, No Palpitations, No Orthopnea, No Paroxysmal Noc. Dyspnea, No Edema, No Lt Headedness, No Other Respiratory: No Cough, No Dry, No Shortness of breath, No SOB with excertion, No Wheezing, No Hemoptysis, No Pleuritic Pain, No Sputum, No Other Gastrointestinal: No Nausea, No Vomiting; Abdominal Pain; No Diarrhea, No Constipation, No Melena, No Hematochezia, No Other Genitourinary: Dysuria, Frequency; No Incontinence, No Hematuria; Retention; No Other Musculoskeletal: No other, No neck pain, No shoulder pain, No arm pain, No back pain, No hand pain, No leg pain, No foot pain Skin: No Rash, No Lesions, No Jaundice, No Bruising, No Other Objective Vitals Vital Signs Date Time Temp Pulse Resp B/P (MAP) Pulse Ox O2 Delivery O2 Flow Rate FiO2 08/20/25 08:33 112/75 08/20/25 07:43 18 Room Air* 0 21 08/20/25 05:00 97.7 74 96 97.7 Intake/Output Intake and Output 08/20/25 07:00 Intake Total 1250 ml Output Total 2000 ml Balance -750 ml Intake Oral 1250 ml Output Urine Total 2000 ml Medications Current Medications Medications Dose Ordered Sig/Chucho Route Start Time Stop Time Status Last Admin Dose Admin Nitroglycerin 0.4 mg Q5MINP PRN SL 08/17/25 13:15 Morphine Sulfate 2 mg Q30M PRN IV 08/17/25 13:15 Ceftriaxone Sodium/Dextrose 50 ml @ 50 mls/hr DAILY IV 08/17/25 13:45 08/20/25 08:34 50 MLS/HR Nifedipine 30 mg DAILY PO 08/18/25 10:00 08/20/25 08:33 30 MG Laboratory Results Laboratory Tests 08/18/25 05:11 Urinalysis Test 08/17/25 22:36 Urine Color Colorless (Yellow) Urine Clarity Turbid (Clear) H Urine pH 6.0 (5.0-9.0) Urine Specific [place] 1.009 (1.001-1.035) Urine Protein Trace (Negative) H Urine Ketones Negative (Negative) Urine Blood Trace /uL (Negative) H Urine Nitrite Negative (Negative) Urine Bilirubin Negative (Negative) Urine Urobilinogen Normal mg/dL (Negative) Urine Leukocyte Esterase 3+ /uL (Negative) Urine RBC 1 /hpf (0 - 3) Urine WBC Clumps Present /hpf (None Seen) Urine Microscopic WBC 62 /HPF (0-3) H Urine Squamous Epithelial Cells Few /hpf (<5) Urine Bacteria Few /hpf (None Seen) H Urine Mucus Few (None Seen) Urine Yeast (Budding) Moderate /hpf (None Seen) Urine Glucose Trace mg/dL (Normal) Microbiology Microbiology Date/Time Source Procedure Growth Status 08/17/25 22:36 Voided Urine Urine Culture - Preliminary Resulted 08/17/25 09:39 Blood Blood Culture - Preliminary NO GROWTH AFTER 48 HOURS OF INCUBATION. Resulted Labs and/or images reviewed: Labs reviewed by me, Image(s) reviewed by me Assessment/Plan Assessment/Plan Sepsis secondary to urinary tract infection: Blood cultures negative urine cultures mixed mariaelena, continue Rocephin Hypotension secondary to sepsis Hypertensive heart disease History of recurrent UTI History of kidney stones status post lithotripsy FERNANDO Palpitations BPH Chronic indwelling Pan CKD 3 History of spinal stenosis Moderate obesity Sacral decubitus wound present on admission: Wound consult Time spent 50 minutes Advanced care planning time 20 minutes Patient is full code Prognosis poor Patient would like to be discharged back to [facility] health Plan discussed with: Patient Date of Service: Aug 20, 2025 Billing Provider: CHRIS ZEE MD Common Visit Codes: [id number] INP/OBS CARE(HIGH) CHRIS ZEE MD Aug 20, 2025 08:51
[2025-08-20 09:07] LABS: Prostate Specific Antigen 1.4 ng/mL (0.0-4.0)
[2025-08-20 13:48] LABS: Hepatitis A Total Antibody Negative (Negative); Hepatitis B Surface Antigen Negative (Negative); Hepatitis C Antibody Negative (Negative)
[2025-08-20 19:11] LABS: Urine Budding Yeast MANY /hpf (None Seen); Urine Protein, UAD TRACE (Negative)
[2025-08-21] VITALS (7 sets, daily range): BP systolic 99–120; BP diastolic 58–75; PULSE 64–82; RESP 16–18; TEMP 97–97.7; O2SAT 97–99
--- NOTE | 2025-08-21 08:36 | DVHPN2 ---
Reviewed: Care Plan, H&P, Labs, Medications, Previous Orders, Radiology Changes from previous H/P or p: No Changes Eyes: No Pain, No Vision change, No Conjunctivae inflammation, No Eyelid inflammation, No Other, No Redness ENT: No Ear pain, No Ear discharge, No Nose pain, No Nose discharge, No Nose congestion, No Mouth pain, No Mouth swelling, No Throat pain, No Throat swelling, No Other Cardiovascular: No Chest Pain, No Palpitations, No Orthopnea, No Paroxysmal Noc. Dyspnea, No Edema, No Lt Headedness, No Other Respiratory: No Cough, No Dry, No Shortness of breath, No SOB with excertion, No Wheezing, No Hemoptysis, No Pleuritic Pain, No Sputum, No Other Gastrointestinal: No Nausea, No Vomiting; Abdominal Pain; No Diarrhea, No Constipation, No Melena, No Hematochezia, No Other Genitourinary: Dysuria, Frequency; No Incontinence, No Hematuria; Retention; No Other Musculoskeletal: No other, No neck pain, No shoulder pain, No arm pain, No back pain, No hand pain, No leg pain, No foot pain Skin: No Rash, No Lesions, No Jaundice, No Bruising, No Other Objective Vitals Vital Signs Date Time Temp Pulse Resp B/P (MAP) Pulse Ox O2 Delivery O2 Flow Rate FiO2 08/21/25 05:00 97.1 64 18 110/73 (85) 98 97.1 08/20/25 19:57 Room Air* 0 21 Intake/Output Intake and Output 08/21/25 07:00 Intake Total 750 ml Output Total 750 ml Balance 0 ml Intake Oral 700 ml IV Total 50 ml Output Urine Total 750 ml # Voids 1 # Bowel Movements 1 Medications Current Medications Medications Dose Ordered Sig/Chucho Route Start Time Stop Time Status Last Admin Dose Admin Nitroglycerin 0.4 mg Q5MINP PRN SL 08/17/25 13:15 Morphine Sulfate 2 mg Q30M PRN IV 08/17/25 13:15 Ceftriaxone Sodium/Dextrose 50 ml @ 50 mls/hr DAILY IV 08/17/25 13:45 08/20/25 08:34 50 MLS/HR Nifedipine 30 mg DAILY PO 08/18/25 10:00 08/20/25 08:33 30 MG Laboratory Results Laboratory Tests 08/18/25 05:11 Urinalysis Test 08/17/25 22:36 11/17/25 09:55 Urine WBC Clumps Present /hpf (None Seen) Urine Color Colorless (Yellow) Urine Clarity Turbid (Clear) H Urine pH 6.0 (5.0-9.0) Urine Specific [place] 1.010 (1.001-1.035) Urine Protein Trace (Negative) H Urine Ketones Negative (Negative) Urine Blood Trace /uL (Negative) H Urine Nitrite Negative (Negative) Urine Bilirubin Negative (Negative) Urine Urobilinogen Normal mg/dL (Negative) Urine Leukocyte Esterase 3+ /uL (Negative) Urine RBC 2 /hpf (0 - 3) Urine Microscopic WBC 37 /HPF (0-3) H Urine Squamous Epithelial Cells Few /hpf (<5) Urine Bacteria Few /hpf (None Seen) H Urine Mucus Few (None Seen) Urine Yeast (Budding) Many /hpf (None Seen) Urine Glucose Normal mg/dL (Normal) Microbiology Microbiology Date/Time Source Procedure Growth Status 08/17/25 22:36 Voided Urine Urine Culture - Preliminary Resulted 08/17/25 09:39 Blood Blood Culture - Preliminary NO GROWTH AFTER 72 HOURS OF INCUBATION. Resulted Labs and/or images reviewed: Labs reviewed by me, Image(s) reviewed by me Assessment/Plan Assessment/Plan Sepsis secondary to urinary tract infection: Blood cultures negative urine cultures growing Gram-negative rods, sensitivity pending continue Rocephin Yeast in the urine: Diflucan 200 mg IV daily Hypotension secondary to sepsis Hypertensive heart disease History of recurrent UTI History of kidney stones status post lithotripsy FERNANDO Palpitations BPH Chronic indwelling Pan CKD 3 History of spinal stenosis Moderate obesity Sacral decubitus wound present on admission: Wound consult Time spent 50 minutes Advanced care planning time 20 minutes Patient is full code Prognosis poor Patient would like to be discharged back to [facility] home health Plan discussed with: Patient My Orders Orders - CHRIS ZEE MD Procedure Category Date Status Time Fluconazole Ivpb PHA 08/21/25 Verified Diflucan 10:00 Date of Service: Aug 21, 2025 Billing Provider: CHRIS ZEE MD Common Visit Codes: [id number] INP/OBS CARE(HIGH) CHRIS ZEE MD Aug 21, 2025 08:36
[2025-08-21] MEDS: FLUCONAZOLE 200MG/100ML 100 ML IV SCH (10:41)
[2025-08-22] VITALS (8 sets, daily range): BP systolic 101–119; BP diastolic 71–86; PULSE 77–99; RESP 16–20; TEMP 97.9–98.6; O2SAT 96–97
--- NOTE | 2025-08-22 09:55 | DVHPN2 ---
Reviewed: Care Plan, H&P, Labs, Medications, Previous Orders, Radiology Changes from previous H/P or p: No Changes Eyes: No Pain, No Vision change, No Conjunctivae inflammation, No Eyelid inflammation, No Other, No Redness ENT: No Ear pain, No Ear discharge, No Nose pain, No Nose discharge, No Nose congestion, No Mouth pain, No Mouth swelling, No Throat pain, No Throat swelling, No Other Cardiovascular: No Chest Pain, No Palpitations, No Orthopnea, No Paroxysmal Noc. Dyspnea, No Edema, No Lt Headedness, No Other Respiratory: No Cough, No Dry, No Shortness of breath, No SOB with excertion, No Wheezing, No Hemoptysis, No Pleuritic Pain, No Sputum, No Other Gastrointestinal: No Nausea, No Vomiting; Abdominal Pain; No Diarrhea, No Constipation, No Melena, No Hematochezia, No Other Genitourinary: Dysuria, Frequency; No Incontinence, No Hematuria; Retention; No Other Musculoskeletal: No other, No neck pain, No shoulder pain, No arm pain, No back pain, No hand pain, No leg pain, No foot pain Skin: No Rash, No Lesions, No Jaundice, No Bruising, No Other Objective Vitals Vital Signs Date Time Temp Pulse Resp B/P (MAP) Pulse Ox O2 Delivery O2 Flow Rate FiO2 08/22/25 05:00 98.4 89 16 101/71 (81) 97 98.4 08/21/25 20:00 Room Air* 0 21 Intake/Output Intake and Output 08/22/25 07:00 Intake Total 800 ml Output Total 1850 ml Balance -1050 ml Intake Oral 700 ml IV Total 100 ml Output Urine Total 1850 ml Medications Current Medications Medications Dose Ordered Sig/Chucho Route Start Time Stop Time Status Last Admin Dose Admin Nitroglycerin 0.4 mg Q5MINP PRN SL 08/17/25 13:15 Morphine Sulfate 2 mg Q30M PRN IV 08/17/25 13:15 Ceftriaxone Sodium/Dextrose 50 ml @ 50 mls/hr DAILY IV 08/17/25 13:45 08/21/25 10:00 50 MLS/HR Nifedipine 30 mg DAILY PO 08/18/25 10:00 08/21/25 10:41 30 MG Fluconazole 100 ml @ 100 mls/hr DAILY IV 08/21/25 10:00 08/21/25 10:41 100 MLS/HR Laboratory Results Laboratory Tests 08/18/25 05:11 Urinalysis Test 08/17/25 22:36 08/20/25 09:55 Urine WBC Clumps Present /hpf (None Seen) Urine Color Colorless (Yellow) Urine Clarity Turbid (Clear) H Urine pH 6.0 (5.0-9.0) Urine Specific [place] 1.010 (1.001-1.035) Urine Protein Trace (Negative) H Urine Ketones Negative (Negative) Urine Blood Trace /uL (Negative) H Urine Nitrite Negative (Negative) Urine Bilirubin Negative (Negative) Urine Urobilinogen Normal mg/dL (Negative) Urine Leukocyte Esterase 3+ /uL (Negative) Urine RBC 2 /hpf (0 - 3) Urine Microscopic WBC 37 /HPF (0-3) H Urine Squamous Epithelial Cells Few /hpf (<5) Urine Bacteria Few /hpf (None Seen) H Urine Mucus Few (None Seen) Urine Yeast (Budding) Many /hpf (None Seen) Urine Glucose Normal mg/dL (Normal) Microbiology Microbiology Date/Time Source Procedure Growth Status 08/17/25 22:36 Voided Urine Urine Culture - Preliminary Pseudomonas aeruginosa Yeast, not Fozia albicans Resulted 08/17/25 09:39 Blood Blood Culture - Final NO GROWTH AFTER 5 DAYS OF INCUBATION. Complete Labs and/or images reviewed: Labs reviewed by me, Image(s) reviewed by me Assessment/Plan Assessment/Plan Sepsis secondary to urinary tract infection: Blood cultures negative urine cultures growing Pseudomonas aeruginosa, stop Rocephin start meropenem 1 g IV q.12h (renal dose) Yeast in the urine: Diflucan 200 mg IV daily Acute Hypotension secondary to sepsis Hypertensive heart disease History of recurrent UTI History of kidney stones status post lithotripsy FERNANDO Palpitations BPH Chronic indwelling Pan CKD 3 History of spinal stenosis Moderate obesity Sacral decubitus wound present on admission: Wound consult Time spent 50 minutes Advanced care planning time 20 minutes Patient is full code Prognosis poor Patient would like to be discharged back to [facility] home health Plan discussed with: Patient My Orders Orders - CHRIS ZEE MD Procedure Category Date Status Time Meropenem 1gm Q12hr PHA 08/22/25 Verified ([id number]) 10:00 Date of Service: Aug 22, 2025 Billing Provider: CHRIS ZEE MD Common Visit Codes: [id number] INP/OBS CARE(HIGH) CHRIS ZEE MD Aug 22, 2025 09:55
[2025-08-22] MEDS: MEROPENEM 1GM IVPB 50 ML IV SCH (12:00)
[2025-08-22] MEDS: diphenhydrAMINE HCL 50 MG/1 ML VL IV ONE (12:28)
[2025-08-23] VITALS (7 sets, daily range): BP systolic 101–123; BP diastolic 72–81; PULSE 80–95; RESP 17–20; TEMP 36.7; O2SAT 96–99
[2025-08-23] MEDS ORDERED: FLUC200T PO (08:42)
--- NOTE | 2025-08-23 08:43 | DVHPN2 ---
Reviewed: Care Plan, H&P, Labs, Medications, Previous Orders, Radiology Changes from previous H/P or p: No Changes Eyes: No Pain, No Vision change, No Conjunctivae inflammation, No Eyelid inflammation, No Other, No Redness ENT: No Ear pain, No Ear discharge, No Nose pain, No Nose discharge, No Nose congestion, No Mouth pain, No Mouth swelling, No Throat pain, No Throat swelling, No Other Cardiovascular: No Chest Pain, No Palpitations, No Orthopnea, No Paroxysmal Noc. Dyspnea, No Edema, No Lt Headedness, No Other Respiratory: No Cough, No Dry, No Shortness of breath, No SOB with excertion, No Wheezing, No Hemoptysis, No Pleuritic Pain, No Sputum, No Other Gastrointestinal: No Nausea, No Vomiting; Abdominal Pain; No Diarrhea, No Constipation, No Melena, No Hematochezia, No Other Genitourinary: Dysuria, Frequency; No Incontinence, No Hematuria; Retention; No Other Musculoskeletal: No other, No neck pain, No shoulder pain, No arm pain, No back pain, No hand pain, No leg pain, No foot pain Skin: No Rash, No Lesions, No Jaundice, No Bruising, No Other Objective Vitals Vital Signs Date Time Temp Pulse Resp B/P (MAP) Pulse Ox O2 Delivery O2 Flow Rate FiO2 08/23/25 05:00 98.0 95 18 101/72 (82) 97 98.0 08/22/25 20:00 Room Air* 0 21 Intake/Output Intake and Output 08/23/25 07:00 Intake Total 1700 ml Output Total 1175 ml Balance 525 ml Intake Oral 1450 ml IV Total 250 ml Output Urine Total 1175 ml Medications Current Medications Medications Dose Ordered Sig/Chucho Route Start Time Stop Time Status Last Admin Dose Admin Nitroglycerin 0.4 mg Q5MINP PRN SL 08/17/25 13:15 Morphine Sulfate 2 mg Q30M PRN IV 08/17/25 13:15 Nifedipine 30 mg DAILY PO 08/18/25 10:00 08/22/25 10:43 30 MG Fluconazole 100 ml @ 100 mls/hr DAILY IV 08/21/25 10:00 08/22/25 10:43 100 MLS/HR Meropenem 50 ml @ 17 mls/hr Q12HR IV 08/22/25 12:00 08/22/25 22:20 17 MLS/HR Laboratory Results Laboratory Tests 08/18/25 05:11 Urinalysis Test 08/17/25 22:36 08/20/25 09:55 Urine WBC Clumps Present /hpf (None Seen) Urine Color Colorless (Yellow) Urine Clarity Turbid (Clear) H Urine pH 6.0 (5.0-9.0) Urine Specific [place] 1.010 (1.001-1.035) Urine Protein Trace (Negative) H Urine Ketones Negative (Negative) Urine Blood Trace /uL (Negative) H Urine Nitrite Negative (Negative) Urine Bilirubin Negative (Negative) Urine Urobilinogen Normal mg/dL (Negative) Urine Leukocyte Esterase 3+ /uL (Negative) Urine RBC 2 /hpf (0 - 3) Urine Microscopic WBC 37 /HPF (0-3) H Urine Squamous Epithelial Cells Few /hpf (<5) Urine Bacteria Few /hpf (None Seen) H Urine Mucus Few (None Seen) Urine Yeast (Budding) Many /hpf (None Seen) Urine Glucose Normal mg/dL (Normal) Microbiology Microbiology Date/Time Source Procedure Growth Status 08/17/25 22:36 Voided Urine Urine Culture - Final Pseudomonas aeruginosa Yeast, not Fozia albicans Complete 08/17/25 09:39 Blood Blood Culture - Final NO GROWTH AFTER 5 DAYS OF INCUBATION. Complete Labs and/or images reviewed: Labs reviewed by me, Image(s) reviewed by me Assessment/Plan Assessment/Plan Sepsis secondary to urinary tract infection: Blood cultures negative urine cultures growing Pseudomonas aeruginosa, stop Rocephin start meropenem 1 g IV q.12h (renal dose) Yeast in the urine: Diflucan 200 mg IV daily Acute Hypotension secondary to sepsis Hypertensive heart disease History of recurrent UTI History of kidney stones status post lithotripsy FERNANDO Palpitations BPH Chronic indwelling Pan CKD 3 History of spinal stenosis Moderate obesity Sacral decubitus wound present on admission: Wound consult Time spent 50 minutes Advanced care planning time 20 minutes Patient is full code Prognosis poor Patient would like to be discharged back to [facility] home health Plan discussed with: Patient My Orders Orders - CHRIS ZEE MD Procedure Category Date Status Time Meropenem 1gm Ivpb PHA 08/22/25 In Process (Merrem 1gm/50ml) 12:00 * Seamer Operator CONS 08/23/25 Transmitted Consult Home Health Nursing REFER 08/23/25 Transmitted 08:40 Date of Service: Aug 23, 2025 Billing Provider: CHRIS ZEE MD Common Visit Codes: [id number] INP/OBS CARE(HIGH) CHRIS ZEE MD Aug 23, 2025 08:43
--- NOTE | 2025-08-23 09:10 | DVHDS2 ---
Discharge Summary Date of Admission Aug 17, 2025 at 13:04 Date of Discharge: Aug 23, 2025 Admitting Diagnosis Altered mental status and confusion Wounds: None Labs/Diagnostic Data: Laboratory Results Test 08/20/25 09:55 08/18/25 05:11 08/17/25 22:36 08/17/25 09:30 Urine Color Colorless (Yellow) Urine Clarity Turbid (Clear) Urine pH 6.0 (5.0-9.0) Urine Specific [place] 1.010 (1.001-1.035) Urine Protein Trace (Negative) Urine Ketones Negative (Negative) Urine Blood Trace /uL (Negative) Urine Nitrite Negative (Negative) Urine Bilirubin Negative (Negative) Urine Urobilinogen Normal mg/dL (Negative) Urine Leukocyte Esterase 3+ /uL (Negative) Urine RBC 2 /hpf (0 - 3) Urine Microscopic WBC 37 /HPF (0-3) Urine Squamous Epithelial Cells Few /hpf (<5) Urine Bacteria Few /hpf (None Seen) Urine Mucus Few (None Seen) Urine Yeast (Budding) Many /hpf (None Seen) Urine Glucose Normal mg/dL (Normal) White Blood Count 9.7 10^3/uL (4.4-10.8) Red Blood Count 3.62 10^6/uL (4.5-5.90) Hemoglobin 10.7 g/dL (13.5-17.5) Hematocrit 32.5 % (41.0-53.0) Mean Corpuscular Volume 89.6 fL (80.0-100.0) Mean Corpuscular Hemoglobin 29.5 pg (28.0-32.0) Mean Corpuscular Hemoglobin Concent 32.9 g/dL (32.0-36.0) Red Cell Distribution Width 13.4 % (11.8-14.3) Platelet Count 165 10^3/uL (140-450) Mean Platelet Volume 9.7 fL (6.9-10.8) Neutrophils (%) (Auto) 61.1 % (37.0-80.0) Lymphocytes (%) (Auto) 20.1 % (10.0-50.0) Monocytes (%) (Auto) 8.1 % (0.0-12.0) Eosinophils (%) (Auto) 10.0 % (0.0-7.0) Basophils (%) (Auto) 0.7 % (0.0-2.0) Neutrophils # (Auto) 5.9 10 ^3/uL (1.6-8.6) Lymphocytes # (Auto) 2.0 10 ^3/uL (0.4-5.4) Monocytes # (Auto) 0.8 10 ^3/uL (0-1.3) Eosinophils # (Auto) 1.0 10 ^3/uL (0-0.8) Basophils # (Auto) 0.1 10 ^3/uL (0-0.2) Nucleated Red Blood Cells 0.1 % Sodium Level 145 mmol/L (136-145) Potassium Level 3.9 mmol/L (3.5-5.1) Chloride Level 116 mmol/L (98-107) Carbon Dioxide Level 18 mmol/L (20-31) Anion Gap 11 (5-15) Blood Urea Nitrogen 25 mg/dL (9-23) Creatinine 2.01 mg/dL (0.700-1.30) Glomerular Filtration Rate Calc 36 mL/min (>90) BUN/Creatinine Ratio 12.4 (10.0-20.0) Serum Glucose 101 mg/dL (74-106) Calcium Level 8.5 mg/dL (8.7-10.4) Free Prostate Specific Antigen 0.22 ng/mL (N/A) Percent Free Prostate Specific Ag 15.7 % (.) Prostate Specific Antigen Total 1.4 ng/mL (0.0-4.0) Urine WBC Clumps Present /hpf (None Seen) Lactic Acid Level 1.0 mmol/L (0.4-2.0) Lipase 40 U/L (12-53) Hepatitis A Antibody Total Negative (Negative) Hepatitis B Surface Antigen Negative (Negative) Hepatitis B Surface Antibody Negative (Negative) Hepatitis B Core Total Antibody Negative (Negative) Hepatitis C Antibody Negative (Negative) Other Laboratory Tests 08/18/25 05:11 Brief Hx & Hospital Course: 65-year-old male with a history of hypertension recurrent UTI history of kidney stones status post lithotripsy FERNANDO frequent palpitations BPH chronic indwelling Pan CKD three spinal stenosis morbidly obese chronic sacral decubitus ulcers present on admission came in for altered mental status and confusion. Was in hypotension secondary to sepsis which has been resolved treated with the IV antibiotics for urinary tract infections urine cultures came positive for Pseudomonas started on meropenem 1 g IV q.12h which he will receive for two more weeks by home health he also had yeast in the urine started on Diflucan IV we will be converted to the p.o. patient is being discharged home on home health for IV antibiotics. General condition fair but poor at the time of discharge Consults/Reason for consult Wound consult Operations or Procedures None Condition at Discharge: Fair Final Diagnosis/Problems List Sepsis secondary to urinary tract infection: Blood cultures negative urine cultures growing Pseudomonas aeruginosa, stop Rocephin start meropenem 1 g IV q.12h (renal dose) Yeast in the urine: Diflucan 200 mg IV daily Acute Hypotension secondary to sepsis Hypertensive heart disease History of recurrent UTI History of kidney stones status post lithotripsy FERNANDO Palpitations BPH Chronic indwelling Pan CKD 3 History of spinal stenosis Moderate obesity Sacral decubitus wound present on admission: Wound consult Discharge Disposition: Home with Health Services Discharge Instruct/Medications Diet: Cardiac 2g Na,low cholest Activity: Light activity Follow Up/Referral: Follow up with your primary Dr Resume all previous home medications Medications: Meropenem 1 g IV q.12h for 14 days for complicated UTI Diflucan tablets prescription sent to the pharmacy Scheduled Cephalexin Monohydrate (Cephalexin), 500 MG PO QID Fluconazole (Diflucan), 1 TAB PO DAILY Nifedipine (Nifedipine Er), 1 TAB PO DAILY, (Reported) Miscellaneous Medications Nifedipine (Nifedipine Er), (Reported) 39 (Time taken for discharge summary 39 minutes) Discharge Statement: "Patient was advised to return to the ER or call 911 if any headaches, dizziness, shortness of breath, chest pain, abdominal pain, bleeding, fevers, or worsening of medical condition. Patient was counseled about treatment plan, medications, possible side effects, patientverbalized understanding. All questions were answered to the best of my ability. This discharge took greater then 30 minutes in planning, reviewing documentation, counseling the patient, and discussing with other team members." ASSESSMENT ASSESSMENT Hospital Course Marginally improved Assessment Sepsis secondary to urinary tract infection: Blood cultures negative urine cultures growing Pseudomonas aeruginosa, stop Rocephin start meropenem 1 g IV q.12h (renal dose) Yeast in the urine: Diflucan 200 mg IV daily Acute Hypotension secondary to sepsis Hypertensive heart disease History of recurrent UTI History of kidney stones status post lithotripsy FERNANDO Palpitations BPH Chronic indwelling Pan CKD 3 History of spinal stenosis Moderate obesity Sacral decubitus wound present on admission: Wound consult Date of Service: Aug 23, 2025 Billing Provider: CHRIS ZEE MD Common Visit Codes: [id number] DISCH DAY >30min CHRIS ZEE MD Aug 23, 2025 09:10
== END 2025-08-23 20:57 | disposition home health service (06) | DRG 698 ==
LOC: EDBD 08:47 → ER 08:47 → OVERFLOW 13:04 → CENTRAL 17:30
PROVIDERS: ADMIT Family Medicine; ATTEND Family Medicine
PROC: 05H933Z Insertion of Infusion Device into Right Brachial Vein, Percutaneous Approach (ICD-10-PCS; principal; 2025-08-23)
PROC: B54MZZA Ultrasonography of Right Upper Extremity Veins, Guidance (ICD-10-PCS; 2025-08-23)
DX: T83.518A Infection and inflammatory reaction due to other urinary catheter, initial encounter (principal); A41.52 Sepsis due to Pseudomonas; N17.0 Acute kidney failure with tubular necrosis; L89.152 Pressure ulcer of sacral region, stage 2; N39.0 Urinary tract infection, site not specified; N18.30 Chronic kidney disease, stage 3 unspecified; I13.10 Hypertensive heart and chronic kidney disease without heart failure, with stage 1 through stage 4 chronic kidney disease, or unspecified chronic kidney disease; E66.01 Morbid (severe) obesity due to excess calories; N40.0 Benign prostatic hyperplasia without lower urinary tract symptoms; Z87.442 Personal history of urinary calculi; Z88.1 Allergy status to other antibiotic agents; Z79.2 Long term (current) use of antibiotics; Z79.899 Other long term (current) drug therapy; Z87.891 Personal history of nicotine dependence; Z68.35 Body mass index [BMI] 35.0-35.9, adult
CPT/HCPCS: 36415; 80048; 81001; 83605; 83690; 84154; 85025; 86704; 86706; 86708; 86803; 87040; 87086; 87088; 87186; 87340; 93005; G0378; J1450; J2185; J2405; J2543